=== PATIENT | female | born 1950 | race Caucasian/White ===

== ENCOUNTER → 2018-03-04 08:01 | Outpatient (CLI) | payer MEDICARE, OTHER, SELFPAY ==
--- NOTE | 2018-03-04 | DI.MG.S_ITS ---
BILATERAL DIGITAL SCREENING MAMMOGRAM 3D/2D WITH CAD: 03/04/2018 CLINICAL: Routine screening. Family history of breast cancer. Comparison is made to exams dated: 02/20/2016 mammogram, 02/15/2015 mammogram, and 09/21/2013 mammogram - [facility]. The tissue of both breasts is heterogeneously dense. This may lower the sensitivity of mammography. Current study was also evaluated with a Computer Aided Detection (CAD) system. No significant masses, calcifications, or other findings are seen in either breast. There has been no significant interval change. IMPRESSION: NEGATIVE There is no mammographic evidence of malignancy. A 1 year screening mammogram is recommended. This exam was interpreted at Station ID: [id number]. NOTE: For mammograms, a report in lay terms will be sent to the patient. Approximately 15% of breast malignancies will not be visualized mammographically. In the management of a palpable breast mass, a negative mammogram must not discourage biopsy of a clinically suspicious lesion. Electronically Signed By: Sj griffin/estefani:03/04/2018 13:51:28 letter sent: Normal Exam ACR BI-RADS Category 1: Negative 3341F
== END ==
PROVIDERS: PCP Nurse Practitioner Family; Visit Provider Nurse Practitioner Family
DX: Z12.31 Encounter for screening mammogram for malignant neoplasm of breast (principal); Z80.3 Family history of malignant neoplasm of breast
CPT/HCPCS: 77063; 77067

== ENCOUNTER → 2018-04-22 08:26 | Outpatient (CLI) | payer MEDICARE, OTHER, SELFPAY ==
--- NOTE | 2018-04-22 | DI.RAD.S_ITS ---
PROCEDURE: XR HAND LT MIN 3V INDICATIONS: BILATERAL HANDS, PAIN WORSENING W ACTIVITY, SUSPECT ARTHRITI TECHNIQUE: 3 views of the hand(s) acquired. COMPARISON: None. FINDINGS: Bones: No fractures or dislocations. Carpal bones are normally aligned. No suspicious bony lesions. Degenerative joint disease is evident in the first carpal metacarpal joint, IP joint of the thumb and DIP joints of the fingers, most marked in the index finger. Soft tissues: No suspicious soft tissue calcifications. IMPRESSION: Osteoarthritis left hand Dictated by: Taqueria Suarez M.D. on 04/22/2018 at 8:50 Approved by: Taqueria Suarez M.D. on 04/22/2018 at 8:52
--- NOTE | 2018-04-22 | DI.RAD.S_ITS ---
PROCEDURE: XR HAND RT MIN 3V INDICATIONS: BILATERAL HANDS, PAIN WORSENING W ACTIVITY, SUSPECT ARTHRITI TECHNIQUE: 3 views of the hand(s) acquired. COMPARISON: None. FINDINGS: Bones: No fractures or dislocations. Carpal bones are normally aligned. No suspicious bony lesions. Degenerative joint disease is present at the basilar joint of the thumb, IP joint of the thumb and DIP joints of the fingers, most marked in the fifth finger. Soft tissues: No suspicious soft tissue calcifications. IMPRESSION: Osteoarthritis right hand Dictated by: Taqueria Suarez M.D. on 04/22/2018 at 8:52 Approved by: Taqueria Suarez M.D. on 04/22/2018 at 8:53
== END ==
PROVIDERS: PCP Nurse Practitioner Family; Visit Provider Nurse Practitioner Family
DX: M19.042 Primary osteoarthritis, left hand (principal); M19.041 Primary osteoarthritis, right hand; M79.641 Pain in right hand; M79.642 Pain in left hand
CPT/HCPCS: 73130

== ENCOUNTER → 2019-02-22 08:57 | Outpatient (CLI) | payer MEDICARE, OTHER, SELFPAY ==
--- NOTE | 2019-02-22 | DI.RAD.S_ITS ---
PROCEDURE: XR KNEE LT 3V INDICATIONS: LT LEG PAIN TECHNIQUE: 3 views of the knee were acquired. COMPARISON: None. FINDINGS: Bones: No fractures or dislocations. No suspicious bony lesions. Soft tissues: There is a small joint effusion. No suspicious soft tissue calcifications. IMPRESSION: 1. Small joint effusion. 2. No fracture or dislocation. Dictated by: Jordi Sullivan M.D. on 02/22/2019 at 11:03 Approved by: Jordi Sullivan M.D. on 02/22/2019 at 11:08
--- NOTE | 2019-02-22 | DI.US.S_ITS ---
PROCEDURE: US PERIPH VENOUS LOW EXTREM LT INDICATIONS: LEFT LEG PAIN TECHNIQUE: Real-time imaging, as well as color and pulse Doppler interrogation, were performed of the lower extremity deep veins from the inguinal ligament to the popliteal fossa. COMPARISON: None. FINDINGS: The common femoral, femoral and popliteal veins are normally compressible, and free of intraluminal thrombus. Color and pulse Doppler demonstrate normal phasic intraluminal flow. There is normal augmentation response to distal compression maneuver. IMPRESSION: Negative for deep venous thrombosis. Dictated by: Landon Weinstein M.D. on 02/22/2019 at 9:15 Approved by: Landon Weinstein M.D. on 02/22/2019 at 9:16
== END ==
PROVIDERS: PCP Nurse Practitioner Family; Visit Provider Nurse Practitioner Family
DX: M79.605 Pain in left leg (principal); M25.462 Effusion, left knee
CPT/HCPCS: 73562; 93971

== ENCOUNTER → 2019-12-11 13:41 | Outpatient (CLI) | payer MEDICARE, OTHER, SELFPAY ==
[2019-12-11 19:16] LABS: Appearance Urine UA CLEAR; Bilirubin Urine UA NEGATIVE (NEGATIVE); Color Urine UA YELLOW; Glucose Urine UA NEGATIVE (Negative); Ketones Urine UA NEGATIVE (NEGATIVE); Leukocyte Esterase Urine UA TRACE (NEGATIVE); Nitrite Urine UA NEGATIVE (Negative); Occult Blood Urine UA TRACE-INTACT (Negative); Protein Urine UA NEGATIVE (Negative); Specific Gravity Urine UA <=1.005 (1.000-1.035); Urobilinogen Urine UA 0.2 E.U./dL (0.2)
[2019-12-11 19:37] LABS: Bacteria Urine Moderate (10-30); Culture Indicated Urine Specimen Cultured; RBC Urine 0-1/HPF (0-5/HPF); WBC Urine 10-30/HPF (0-5/HPF)
== END ==
PROVIDERS: PCP Family Medicine; Referring Provider Family Medicine; Visit Provider Family Medicine
DX: R30.0 Dysuria (principal)
CPT/HCPCS: 81001; 87077; 87086; 87186

== ENCOUNTER → 2019-12-21 09:32 | Outpatient (CLI) | payer MEDICARE, OTHER, SELFPAY ==
[2019-12-21 09:36] LABS: RBC Urine None Seen (0-5/HPF)
[2019-12-21 10:58] LABS: Appearance Urine UA CLEAR; Bilirubin Urine UA NEGATIVE (NEGATIVE); Color Urine UA YELLOW; Glucose Urine UA NEGATIVE (Negative); Ketones Urine UA NEGATIVE (NEGATIVE); Leukocyte Esterase Urine UA NEGATIVE (NEGATIVE); Nitrite Urine UA NEGATIVE (Negative); Occult Blood Urine UA NEGATIVE (Negative); Protein Urine UA NEGATIVE (Negative); Specific Gravity Urine UA <=1.005 (1.000-1.035); Urobilinogen Urine UA 0.2 E.U./dL (0.2)
[2019-12-21 11:16] LABS: Bacteria Urine Occasional (0-1); Culture Indicated Urine Cult Not Indicated; Squamous Epithelial Cell Urine 0-1 /HPF (0-5/HPF); WBC Urine 0-1/HPF (0-5/HPF); pH Urine UA 6.5 (4.5-8.0)
== END ==
PROVIDERS: PCP Family Medicine; Referring Provider Family Medicine; Visit Provider Family Medicine
DX: N39.0 Urinary tract infection, site not specified (principal)
CPT/HCPCS: 81001

== ENCOUNTER → 2020-04-18 08:35 | Outpatient (CLI) | payer MEDICARE, OTHER, SELFPAY ==
--- NOTE | 2020-04-18 08:37 | DI.MG.S_ITS ---
BILATERAL DIGITAL SCREENING MAMMOGRAM 3D/2D WITH CAD: 04/18/2020 CLINICAL: Routine screening. Family history of breast cancer. Comparison is made to exams dated: 03/04/2018 mammogram, 02/20/2016 mammogram, and 02/15/2015 mammogram - [facility]. The tissue of both breasts is heterogeneously dense. This may lower the sensitivity of mammography. Current study was also evaluated with a Computer Aided Detection (CAD) system. No significant masses, calcifications, or other findings are seen in either breast. There has been no significant interval change. IMPRESSION: NEGATIVE There is no mammographic evidence of malignancy. A 1 year screening mammogram is recommended. This exam was interpreted at Station ID: [id number]. NOTE: For mammograms, a report in lay terms will be sent to the patient. Approximately 15% of breast malignancies will not be visualized mammographically. In the management of a palpable breast mass, a negative mammogram must not discourage biopsy of a clinically suspicious lesion. Electronically Signed By: Luis brennan/estefani:04/18/2020 08:55:40 letter sent: Normal Exam ACR BI-RADS Category 1: Negative 3341F
== END ==
PROVIDERS: PCP Family Medicine; Referring Provider Family Medicine; Visit Provider Family Medicine
DX: Z12.31 Encounter for screening mammogram for malignant neoplasm of breast (principal); Z80.3 Family history of malignant neoplasm of breast
CPT/HCPCS: 77063; 77067

== ENCOUNTER → 2020-04-19 07:20 | Outpatient (CLI) | payer MEDICARE, OTHER, SELFPAY ==
[2020-04-19 08:42] LABS: Alanine Aminotransferase 23 IU/L (<35); Albumin 4.3 g/dL (3.5-5.0); Albumin Globulin Ratio 1.8 (1.0-2.8); Alkaline Phosphatase 38 U/L (38-126); Aspartate Aminotransferase 25 IU/L (14-36); BUN Creatinine Ratio 18.1 (6-22); Bilirubin Total 0.5 mg/dL (0.2-1.3); Blood Urea Nitrogen 13 mg/dL (7-17); Calcium 9.8 mg/dL (8.4-10.2); Carbon Dioxide 30 mmol/L (22-32); Chloride 104 mmol/L (98-107); Cholesterol 208 mg/dL (140-199); Estimated Glomerular Filt Rate > 60.0 mL/min (>60); Globulin 2.4 g/dL (1.7-4.1); Glucose 107 mg/dL (80-110); HDL Cholesterol 91 mg/dL (40-60); HEMOLYSIS < 15 (0-50); LDL Cholesterol Calculated 106 mg/dL (<100); Potassium 4.1 mmol/L (3.4-5.1); Sodium 138 mmol/L (137-145); Total Protein 6.7 g/dL (6.3-8.2); Triglycerides 53 mg/dL (35-150)
== END ==
PROVIDERS: PCP Family Medicine; Referring Provider Family Medicine; Visit Provider Family Medicine
DX: E78.5 Hyperlipidemia, unspecified (principal); Z13.1 Encounter for screening for diabetes mellitus
CPT/HCPCS: 36415; 80053; 80061

== ENCOUNTER → 2020-06-17 08:26 | Outpatient (CLI) | payer MEDICARE, OTHER, SELFPAY | PROVIDERS: PCP Family Medicine; Referring Provider Family Medicine; Visit Provider Family Medicine | DX: Z12.11 Encounter for screening for malignant neoplasm of colon (principal) | CPT/HCPCS: 82274 ==

== ENCOUNTER → 2020-07-11 10:02 | Outpatient (CLI) | payer MEDICARE, OTHER, SELFPAY | PROVIDERS: PCP Family Medicine; Referring Provider Family Medicine; Visit Provider Family Medicine | DX: M85.852 Other specified disorders of bone density and structure, left thigh (principal); Z78.0 Asymptomatic menopausal state | CPT/HCPCS: 77080 ==

== ENCOUNTER → 2021-03-07 14:40 | Outpatient (CLI) | payer MEDICARE, OTHER, SELFPAY ==
[2021-03-07 14:51] LABS: RBC Urine None Seen (0-5/HPF)
[2021-03-07 15:30] LABS: Appearance Urine UA CLEAR; Bilirubin Urine UA NEGATIVE (NEGATIVE); Color Urine UA YELLOW; Glucose Urine UA NEGATIVE (Negative); Ketones Urine UA NEGATIVE (NEGATIVE); Leukocyte Esterase Urine UA 2+ (NEGATIVE); Nitrite Urine UA NEGATIVE (Negative); Occult Blood Urine UA 2+ (Negative); Protein Urine UA NEGATIVE (Negative); Specific Gravity Urine UA <=1.005 (1.000-1.035); Urobilinogen Urine UA 0.2 E.U./dL (0.2)
[2021-03-07 15:47] LABS: pH Urine UA 5.5 (4.5-8.0)
[2021-03-07 15:48] LABS: WBC Urine 5-10/HPF (0-5/HPF)
[2021-03-07 15:49] LABS: Bacteria Urine Few (2-10); Culture Indicated Urine Specimen Cultured; Mucus Urine 2+ (Negative); Squamous Epithelial Cell Urine 1-5 /HPF (0-5/HPF); Transitional Epi Cells Urine 1-5/HPF (0-5/HPF)
== END ==
PROVIDERS: PCP Family Medicine; Referring Provider Family Medicine; Visit Provider Family Medicine
DX: R30.0 Dysuria (principal); R35.0 Frequency of micturition; R39.15 Urgency of urination
CPT/HCPCS: 81001; 87077; 87086; 87186

== ENCOUNTER 2021-06-02 13:30 | Outpatient (RCR) | payer MEDICARE, OTHER, SELFPAY ==
--- NOTE | 2021-03-24 17:02 | PT.OIE ---
Current Diagnoses Stiffness of left shoulder, not elsewhere classified (03/24/21) Muscle weakness (generalized) (03/24/21) Strain of unspecified muscle, fascia and tendon at shoulder and upper arm level, left arm, initial encounter (03/24/21) Past Medical History (Last Updated 01/08/21 @ 10:11 by Ritu Little PA-C) Adult acne Chronic cough Hyperlipidemia Left shoulder strain Past Surgical History (Last Reviewed 03/26/20 @ 17:05 by Florence Wolf DO) No history of previous surgery Visit Care Team Role Provider Type Florence Wolf DO Attending Provider Physician Primary Care Provider Referring Provider Specialty: [facility] Address: [address] [place] [address], [place], [place], [facility] Email: [email or web address] Physical Therapy Initial Evaluation PT-OP-A Visit Information Start: 03/21/21 17:53 Freq: Status: Active Protocol: Document 03/24/21 13:33 LRN (Rec: 03/24/21 14:29 LRN [id number]) Out-Patient Physical Therapy Visit Information Visit Information Visit Type Initial Evaluation Visit Start Time 13:33 Visit Stop Time 14:26 Total Visit Minutes 53 Visit Number 1 Evaluation Information Evaluation Date 03/24/21 Precautions Precautions Controlled high cholesteral with Statin medication, 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 PT-OP-B Current Condition Start: 03/21/21 17:53 Freq: Status: Active Protocol: Document 03/24/21 13:33 LRN (Rec: 03/24/21 14:29 LRN [id number]) Current Condition History of Current Condition Onset Date 4 months ago Current Complaints Sore L lateral brachium and shoulder. Can't reach behind/ lift History of Current Condition L shoulder started to hurt after receiving COVID injection. Pain is anterior L shoulder and lateral upper arm (deltoid region). Prior to injection she was just starting to get soreness at top of the shoulder minor ache when doing exercises. Used 8# hand weights 5 days a week while in bed. She is having difficulty sleeping and trouble dressing (putting bra on). She is taking IBP & using deep blue cream to help get to sleep. In recliner supports shoulder from behind with a pillow for comfort. She has had prednisone for a few days that helped her sleep to be more regular (waking only to use bathroom and clear nose). Sometimes when lying at night her pain radiates from shoulder to the neck. Prior Treatments and Tests None Future Testing and Treatments Planned None Developmental History Developmental History Pt is R handed. Treatment Goals Patient/Caregiver Goals Pt goal is to be able to put bra on, sleep at night, and to lie down without shoulder aching. Prior Functional Status Baseline Function- ADL's Independent Baseline Function- Mobility Independent Baseline Function- Other Wakes a couple times a night to use bathroom or blow nose. Able to lie in bed without aching pain. No pain with dressing (putting bra on). Current Functional Impairments (Reported) Functional Limitations- ADL's Sleeps hourly due to needing bathroom visits, coughing, runny nose, and lately L shoulder pain. Notices more lately creaking in neck when moves head (was evident prior to worsening of L shoulder pain. Functional Limitations- Mobility/Gait No pain with gait. Functional Limitations- Recreation/ Gardens, sometimes hurts, then Hobbies has to adjust what she is doing. Functional Limitations- Other Not able to lie down due to ache pain. Difficulty putting bra on, pulling up pants. Personal Factors Other Personal Factors That May Effect None Therapy/Recovery PT-OP-C Subjective Start: 03/21/21 17:53 Freq: Status: Active Protocol: Document 03/24/21 13:33 LRN (Rec: 03/24/21 14:29 LRN [id number]) Patient Questionnaires Quick Dash- Upper Extremity Quick Dash UE Score 50 Quick Dash UE Impairment 40 to 59% Impaired (Score 40- 59) OP-PT Pain Assessment Pain Assessment Grid Paper Pain Assessment Grid Completed Yes Location L shoulder Pain Location Details Anterior and lateral L shoulder Intensity 7 Scale Used Numeric (0 - 10) Description Aching,Throbbing Description- Other Worse at night Pain Aggravating Factors Position Other Pain Aggravating Factors Lying supine and sleeping Pain Alleviating Factors Cold,Heat,Medication Other Pain Alleviating Factors Prednisone, Deep Blue Cream, IBP PT-OP-E Functional Tests Start: 03/21/21 17:53 Freq: Status: Active Protocol: Document 03/24/21 13:33 LRN (Rec: 03/24/21 14:29 LRN [id number]) Functional Tests Apley's Scratch Test Action 1- Left Top of UT Action 1- Right Supraspinatus, almost to spine Action 2- Left C7 Action 2- Right T1 Action 3- Left Posterior Buttock Action 3- Right T7 PT-OP-H Neuro Start: 03/21/21 17:53 Freq: Status: Active Protocol: Document 03/24/21 13:33 LRN (Rec: 03/24/21 14:29 LRN [id number]) Sensation Evaluation Gross Sensation Gross Sensation WNL PT-OP-J Posture/Palpation/Skin Start: 03/21/21 17:53 Freq: Status: Active Protocol: Document 03/24/21 13:33 LRN (Rec: 03/24/21 14:29 LRN [id number]) Posture Evaluation Position Standing Head/C-Spine Posture Forward Head T-Spine Posture Increased Kyphosis Shoulder Posture (L) Rounded,(R) Rounded Scapula Posture (L) Elevated Palpation Assessment Location L neck Palpation Location UT Palpation Findings Muscle Guarding,Tenderness L shoulder Palpation Location Pec Minor, anterior & middle deltoid Palpation Findings Soft Tissue Tightness, Tenderness Palpation Details No pain subacromial region or Rotator Cuff attachments at humeral head. PT-OP-K Range of Motion Start: 03/21/21 17:53 Freq: Status: Active Protocol: Document 03/24/21 13:33 LRN (Rec: 03/24/21 14:29 LRN [id number]) Cervical Spine Range of Motion Cervical Spine Active Percentage Testing Position Sitting Flexion 100 Extension 90 Rotation Left 45 Rotation Right 45 Lateral Flexion Left 20 Lateral Flexion Right 20 Shoulder Goniometric Range of Motion Shoulder Right Passive Shoulder ROM WFL Yes Testing Position Supine Flexion 173 Abduction 180 External Rotation at 90 degrees 68 Abduction Internal Rotation 76 Left Passive Shoulder ROM WFL No Testing Position Supine Flexion 137 Abduction 80 Internal Rotation 18 Comments ER 10 deg's at 80 deg's AB. Right Active Testing Position Sitting Flexion 180 Extension 70 Abduction 180 Internal Rotation Behind Back (text) T7 Left Active Shoulder ROM WFL No Testing Position Sitting Flexion 130 Extension 36 Abduction 65 Internal Rotation Behind Back (text) Buttock PT-OP-L Special Tests Start: 03/21/21 17:53 Freq: Status: Active Protocol: Document 03/24/21 13:33 LRN (Rec: 03/24/21 16:13 LRN [id number]) Special Tests Shoulder Special Tests Overton Gualberto Impingement Test Results Positive L shoulder Elevation Impingement Test Results Positive L shoulder Anterior Draw Test Results Negative L shoulder PT-OP-M Strength Start: 03/21/21 17:53 Freq: Status: Active Protocol: Document 03/24/21 13:33 LRN (Rec: 03/24/21 14:29 LRN [id number]) Cervical Spine Strength Cervical Spine Manual Muscle Testing Comments Generally 5/5 Shoulder Strength Shoulder Manual Muscle Testing Right Abduction (C5) 4 Good Comments Strength is 5/5 except as indicated above. Left Extension 4 Good Adduction 5 Normal External Rotation 3 Fair Horizontal Adduction 4 Good Comments Strength is 5/5 with break testing except as indicated above. Pain limited strength in areas less than 5/5 Elbow/Forearm Strength Elbow and Forearm Manual Muscle Testing Right Flexion (C6) 5 Normal Extension (C7) 5 Normal Left Flexion (C6) 5 Normal Extension (C7) 5 Normal PT-OP-Q Treatments Start: 03/21/21 17:53 Freq: Status: Active Protocol: Document 03/24/21 13:33 LRN (Rec: 03/24/21 14:29 LRN [id number]) Self-Care/Home Management Treatment Education Other Education Discussed results of evaluation, goals, and plan of care. Pt agreeable. Educated pt in pain management with use of cryotherapy. Activities Self-Care/Home Management Activities I/S in active windshield wipe in sitting and passive L shoulder ER passive stretching in sitting (arm on table and leaning forward). PT-OP-T Assessment and Plan Start: 03/21/21 17:53 Freq: Status: Active Protocol: Document 03/24/21 13:33 LRN (Rec: 03/24/21 14:29 LRN [id number]) Physical Therapy Assessment Rehab Potential Rehabilitation Potential Good Evaluation Complexity Number of Personal Factors/Comorbidities 0 Number of Body Systems Impaired 4 or More Clinical Presentation at Evaluation Stable Impairments Impairments Pain,Posture,ROM,Soft Tissue Mobility,Strength Goals Three Impairment Decr'd L shldr ROM (deg's in sit: flex 130, AB 65, Ext 36) Short Term Goal (STG) Initial eval: L shldr AROM ( deg's in sit: flex 130, AB 65, Ext 36, IR hand to buttock) Pt will improve L shoulder AROM with pt able to put bra on with stiffness at shoulder and pain no greater than 2/10. STG Duration 05/05/21 Longterm Goal (LTG) Initial eval: L shldr PROM ( deg's in sup: flex 137, AB 80, ER 10, IR 18) Pt will improve L shoulder PROM, with pt able to lie down without L shoulder aching pain. LTG Duration 06/22/21 Two Impairment Decreased L shoulder strength due to pain. Short Term Goal (STG) Increase L shoulder strength 1 /2 grade (Initial: Ext 4/5, ER 3/5 horiz AD 4/5) to improve pt's ability to lie down with less shoulder pain. STG Duration 05/05/21 Sales Account Leader Goal (LTG) Increase L shoulder strength to no less than 4+/5, with pt able to sleep at night at her prior level of disruption ( waking a couple times a night) but not due to L shoulder pain. LTG Duration 06/22/21 One Impairment Lacks appropriate self care HEP Short Term Goal (STG) Pt will be educated in sleeping positions to minimize pain at night. Sales Account Leader Goal (LTG) Pt will be independent in a self care HEP of L neck and shoulder exercises. LTG Duration 06/22/21 Assessment Summary Assessment Pt is a 70 yo female who presents with a mobility pattern of frozen shoulder syndrome. Additionally she shows signs of impingement syndrome, indicating possible rotator cuff dysfunction. The pt will benefit from skilled physical therapy to achieve the above stated goals. Physical Therapy Plan Frequency and Duration Frequency of Treatment 2x/Week Plan of Care Start Date 03/24/21 Plan of Care End Date 06/22/21 Therapeutic Interventions Therapeutic Interventions Home Exercise Program,Joint Mobilizations,Manual Therapy, Neuromuscular Re-education, Patient/Caregiver Education, Self-Care/Home Management,Soft Tissue Mobilization,Taping, Therapeutic Activities, Therapeutic Exercises Next Visit Focus/Plan Next Note Type Treatment Note Next Visit Plan Review instructed HEP and issue handouts (windshield wipe and L shoulder ER stretch with arm on table). Assess response to pt's instructions to increase use of cryotherapy for pain management. Start AROM (codmans & RC active ROM ex's), and modalities or ex to start to increase tissue flexibility prior to JMT and stretching of GHJ. Rehab for L frozen shoulder/impingement.
--- NOTE | 2021-03-24 17:02 | PT.OPPOC ---
Physical, Occupational & Speech Therapy At [facility] Current Diagnoses Stiffness of left shoulder, not elsewhere classified (03/24/21) Muscle weakness (generalized) (03/24/21) Strain of unspecified muscle, fascia and tendon at shoulder and upper arm level, left arm, initial encounter (03/24/21) Visit Care Team Role Provider Type Florence Wolf DO Attending Provider Physician Primary Care Provider Referring Provider Specialty: Family Practice Address: [address] [place] [address], [facility] [place], [address] Email: [email or web address] Plan Of Care PT-OP-T Assessment and Plan Start: 03/21/21 17:53 Freq: Status: Active Protocol: Document 03/24/21 13:33 LRN (Rec: 03/24/21 14:29 LRN [id number]) Physical Therapy Assessment Rehab Potential Rehabilitation Potential Good Evaluation Complexity Number of Personal Factors/Comorbidities 0 Number of Body Systems Impaired 4 or More Clinical Presentation at Evaluation Stable Impairments Impairments Pain,Posture,ROM,Soft Tissue Mobility,Strength Goals Three Impairment Decr'd L shldr ROM (deg's in sit: flex 130, AB 65, Ext 36) Short Term Goal (STG) Initial eval: L shldr AROM ( deg's in sit: flex 130, AB 65, Ext 36, IR hand to buttock) Pt will improve L shoulder AROM with pt able to put bra on with stiffness at shoulder and pain no greater than 2/10. STG Duration 05/05/21 Alf Goal (LTG) Initial eval: L shldr PROM ( deg's in sup: flex 137, AB 80, ER 10, IR 18) Pt will improve L shoulder PROM, with pt able to lie down without L shoulder aching pain. LTG Duration 06/22/21 Two Impairment Decreased L shoulder strength due to pain. Short Term Goal (STG) Increase L shoulder strength 1 /2 grade (Initial: Ext 4/5, ER 3/5 horiz AD 4/5) to improve pt's ability to lie down with less shoulder pain. STG Duration 05/05/21 Alf Goal (LTG) Increase L shoulder strength to no less than 4+/5, with pt able to sleep at night at her prior level of disruption ( waking a couple times a night) but not due to L shoulder pain. LTG Duration 06/22/21 One Impairment Lacks appropriate self care HEP Short Term Goal (STG) Pt will be educated in sleeping positions to minimize pain at night. Alf Goal (LTG) Pt will be independent in a self care HEP of L neck and shoulder exercises. LTG Duration 06/22/21 Assessment Summary Assessment Pt is a 70 yo female who presents with a mobility pattern of frozen shoulder syndrome. Additionally she shows signs of impingement syndrome, indicating possible rotator cuff dysfunction. The pt will benefit from skilled physical therapy to achieve the above stated goals. Physical Therapy Plan Frequency and Duration Frequency of Treatment 2x/Week Plan of Care Start Date 03/24/21 Plan of Care End Date 06/22/21 Therapeutic Interventions Therapeutic Interventions Home Exercise Program,Joint Mobilizations,Manual Therapy, Neuromuscular Re-education, Patient/Caregiver Education, Self-Care/Home Management,Soft Tissue Mobilization,Taping, Therapeutic Activities, Therapeutic Exercises Next Visit Focus/Plan Next Note Type Treatment Note Next Visit Plan Review instructed HEP and issue handouts (windshield wipe and L shoulder ER stretch with arm on table). Assess response to pt's instructions to increase use of cryotherapy for pain management. Start AROM (codmans & RC active ROM ex's), and modalities or ex to start to increase tissue flexibility prior to JMT and stretching of GHJ. Rehab for L frozen shoulder/impingement. Plan of Care Dates Plan of Care Start Date 03/24/21 Plan of Care End Date 06/22/21 Electronically Signed by: Tawana Vazquez, PT 03/24/21 [id number] Please Sign and Return: I have reviewed this Plan of Care and certify that the skilled therapy services above are required to meet the patient?s needs. Physician Signature Date Printed Name and Credentials Clinical Instructor Signature Printed Name and Credentials
--- NOTE | 2021-03-26 17:04 | PT.OTN ---
Current Diagnoses Stiffness of left shoulder, not elsewhere classified (03/26/21) Muscle weakness (generalized) (03/26/21) Strain of unspecified muscle, fascia and tendon at shoulder and upper arm level, left arm, initial encounter (03/26/21) Physical Therapy Treatment Note PT-OP-A Visit Information Start: 03/21/21 17:53 Freq: Status: Active Protocol: Document 03/26/21 14:35 MA (Rec: 03/26/21 15:17 MA [id number]) Out-Patient Physical Therapy Visit Information Visit Information Visit Type Treatment Note Visit Start Time 14:30 Visit Stop Time 15:20 Total Visit Minutes 50 Visit Number 2 Number of STATIONARY ENGINEER REFRIGERATION Visits 1 Precautions Precautions Controlled high cholesteral with Statin medication, 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 PT-OP-B Current Condition Start: 03/21/21 17:53 Freq: Status: Active Protocol: Document 03/24/21 13:33 LRN (Rec: 03/24/21 14:29 LRN [id number]) Current Condition History of Current Condition Onset Date 4 months ago Current Complaints Sore L lateral brachium and shoulder. Can't reach behind/ lift History of Current Condition L shoulder started to hurt after receiving COVID injection. Pain is anterior L shoulder and lateral upper arm (deltoid region). Prior to injection she was just starting to get soreness at top of the shoulder minor ache when doing exercises. Used 8# hand weights 5 days a week while in bed. She is having difficulty sleeping and trouble dressing (putting bra on). She is taking IBP & using deep blue cream to help get to sleep. In recliner supports shoulder from behind with a pillow for comfort. She has had prednisone for a few days that helped her sleep to be more regular (waking only to use bathroom and clear nose). Sometimes when lying at night her pain radiates from shoulder to the neck. Prior Treatments and Tests None Future Testing and Treatments Planned None Developmental History Developmental History Pt is R handed. Treatment Goals Patient/Caregiver Goals Pt goal is to be able to put bra on, sleep at night, and to lie down without shoulder aching. Prior Functional Status Baseline Function- ADL's Independent Baseline Function- Mobility Independent Baseline Function- Other Wakes a couple times a night to use bathroom or blow nose. Able to lie in bed without aching pain. No pain with dressing (putting bra on). Current Functional Impairments (Reported) Functional Limitations- ADL's Sleeps hourly due to needing bathroom visits, coughing, runny nose, and lately L shoulder pain. Notices more lately creaking in neck when moves head (was evident prior to worsening of L shoulder pain. Functional Limitations- Mobility/Gait No pain with gait. Functional Limitations- Recreation/ Gardens, sometimes hurts, then Hobbies has to adjust what she is doing. Functional Limitations- Other Not able to lie down due to ache pain. Difficulty putting bra on, pulling up pants. Personal Factors Other Personal Factors That May Effect None Therapy/Recovery PT-OP-C Subjective Start: 03/21/21 17:53 Freq: Status: Active Protocol: Document 03/26/21 14:35 MA (Rec: 03/26/21 15:17 MA [id number]) OP-PT Subjective Patient Comments Patient Comments Pt has done her HEP at home. PT-OP-E Functional Tests Start: 03/21/21 17:53 Freq: Status: Active Protocol: Document 03/24/21 13:33 LRN (Rec: 03/24/21 14:29 LRN [id number]) Functional Tests Apley's Scratch Test Action 1- Left Top of UT Action 1- Right Supraspinatus, almost to spine Action 2- Left C7 Action 2- Right T1 Action 3- Left Posterior Buttock Action 3- Right T7 PT-OP-H Neuro Start: 03/21/21 17:53 Freq: Status: Active Protocol: Document 03/24/21 13:33 LRN (Rec: 03/24/21 14:29 LRN [id number]) Sensation Evaluation Gross Sensation Gross Sensation WNL PT-OP-J Posture/Palpation/Skin Start: 03/21/21 17:53 Freq: Status: Active Protocol: Document 03/24/21 13:33 LRN (Rec: 03/24/21 14:29 LRN [id number]) Posture Evaluation Position Standing Head/C-Spine Posture Forward Head T-Spine Posture Increased Kyphosis Shoulder Posture (L) Rounded,(R) Rounded Scapula Posture (L) Elevated Palpation Assessment Location L neck Palpation Location UT Palpation Findings Muscle Guarding,Tenderness L shoulder Palpation Location Pec Minor, anterior & middle deltoid Palpation Findings Soft Tissue Tightness, Tenderness Palpation Details No pain subacromial region or Rotator Cuff attachments at humeral head. PT-OP-K Range of Motion Start: 03/21/21 17:53 Freq: Status: Active Protocol: Document 03/24/21 13:33 LRN (Rec: 03/24/21 14:29 LRN [id number]) Cervical Spine Range of Motion Cervical Spine Active Percentage Testing Position Sitting Flexion 100 Extension 90 Rotation Left 45 Rotation Right 45 Lateral Flexion Left 20 Lateral Flexion Right 20 Shoulder Goniometric Range of Motion Shoulder Right Passive Shoulder ROM WFL Yes Testing Position Supine Flexion 173 Abduction 180 External Rotation at 90 degrees 68 Abduction Internal Rotation 76 Left Passive Shoulder ROM WFL No Testing Position Supine Flexion 137 Abduction 80 Internal Rotation 18 Comments ER 10 deg's at 80 deg's AB. Right Active Testing Position Sitting Flexion 180 Extension 70 Abduction 180 Internal Rotation Behind Back (text) T7 Left Active Shoulder ROM WFL No Testing Position Sitting Flexion 130 Extension 36 Abduction 65 Internal Rotation Behind Back (text) Buttock PT-OP-L Special Tests Start: 03/21/21 17:53 Freq: Status: Active Protocol: Document 03/24/21 13:33 LRN (Rec: 03/24/21 16:13 LRN [id number]) Special Tests Shoulder Special Tests Overton Gualberto Impingement Test Results Positive L shoulder Elevation Impingement Test Results Positive L shoulder Anterior Draw Test Results Negative L shoulder PT-OP-M Strength Start: 03/21/21 17:53 Freq: Status: Active Protocol: Document 03/24/21 13:33 LRN (Rec: 03/24/21 14:29 LRN [id number]) Cervical Spine Strength Cervical Spine Manual Muscle Testing Comments Generally 5/5 Shoulder Strength Shoulder Manual Muscle Testing Right Abduction (C5) 4 Good Comments Strength is 5/5 except as indicated above. Left Extension 4 Good Adduction 5 Normal External Rotation 3 Fair Horizontal Adduction 4 Good Comments Strength is 5/5 with break testing except as indicated above. Pain limited strength in areas less than 5/5 Elbow/Forearm Strength Elbow and Forearm Manual Muscle Testing Right Flexion (C6) 5 Normal Extension (C7) 5 Normal Left Flexion (C6) 5 Normal Extension (C7) 5 Normal PT-OP-Q Treatments Start: 03/21/21 17:53 Freq: Status: Active Protocol: Document 03/26/21 14:35 MA (Rec: 03/26/21 15:17 MA [id number]) Therapeutic Exercises Supine Exercises Horizontal ABD Side bilateral Reps/Minutes x10 Flexion Supine Exercise Name Shoulder flexion to 90 Side bilateral Reps/Minutes x10 ER Supine Exercise Name rosioshield wiper Side bilateral Reps/Minutes 60 sec Sidelying Exercises Stretch Sidelying Exercise Name Sleeper Stretch, IR Side left Reps/Minutes 60 sec Sitting Exercises Fwd Flexion Sitting Exercise Name arms on table, leaning fwd to tolerance Side bilateral Reps/Minutes x10 Standing Exercises Pendulum Standing Exercise Name CW, CCW Side left Reps/Minutes 2x30 sec Comments added to HEP Manual Therapy Treatment Soft Tissue Mobilization Bicep Body Location L Mobilization Type Rolling,Sustained Pressure Intensity/Depth Superficial Body Position Supine Comments superficial to moderate pressure RTC Body Location L Mobilization Type Myofascial Release Intensity/Depth Moderate Body Position Supine PT-OP-R Modalities Start: 03/21/21 17:53 Freq: Status: Active Protocol: Document 03/26/21 14:35 MA (Rec: 03/26/21 15:17 MA [id number]) Hot Pack/Cold Pack Treatment Ice Pack Location L bicep Patient Position Supine Treatment Duration (minutes) 10 Patient Tolerance Good PT-OP-T Assessment and Plan Start: 03/21/21 17:53 Freq: Status: Active Protocol: Document 03/26/21 14:35 MA (Rec: 03/26/21 15:17 MA [id number]) Physical Therapy Assessment Goals Three Impairment Decr'd L shldr ROM (deg's in sit: flex 130, AB 65, Ext 36) Short Term Goal (STG) Initial eval: L shldr AROM ( deg's in sit: flex 130, AB 65, Ext 36, IR hand to buttock) Pt will improve L shoulder AROM with pt able to put bra on with stiffness at shoulder and pain no greater than 2/10. STG Duration 05/05/21 Statement Request Clerk Goal (LTG) Initial eval: L shldr PROM ( deg's in sup: flex 137, AB 80, ER 10, IR 18) Pt will improve L shoulder PROM, with pt able to lie down without L shoulder aching pain. LTG Duration 06/22/21 Two Impairment Decreased L shoulder strength due to pain. Short Term Goal (STG) Increase L shoulder strength 1 /2 grade (Initial: Ext 4/5, ER 3/5 horiz AD 4/5) to improve pt's ability to lie down with less shoulder pain. STG Duration 05/05/21 Senior Care Goal (LTG) Increase L shoulder strength to no less than 4+/5, with pt able to sleep at night at her prior level of disruption ( waking a couple times a night) but not due to L shoulder pain. LTG Duration 06/22/21 One Impairment Lacks appropriate self care HEP Short Term Goal (STG) Pt will be educated in sleeping positions to minimize pain at night. Statement Request Clerk Goal (LTG) Pt will be independent in a self care HEP of L neck and shoulder exercises. LTG Duration 06/22/21 Assessment Summary Assessment Pt has pain on bicep mm belly along anterior humerus. She has noticable increase in tissue at site of pain. Perfomed light STM to biceps and ended with ice to reduce swelling. Added codmans pendulum swings and sleeper stretch for increasing IR to HEP. Pt is able to perform previous HEP exercises without increased pain today. She would benefit from continued therapy to increase shd ROM and decrease pain. Physical Therapy Plan Frequency and Duration Frequency of Treatment 2x/Week Plan of Care Start Date 03/24/21 Plan of Care End Date 06/22/21 Therapeutic Interventions Therapeutic Interventions Home Exercise Program,Joint Mobilizations,Manual Therapy, Neuromuscular Re-education, Patient/Caregiver Education, Self-Care/Home Management,Soft Tissue Mobilization,Taping, Therapeutic Activities, Therapeutic Exercises Next Visit Focus/Plan Next Note Type Treatment Note Next Visit Plan Review instructed HEP and issue handouts (windshield wipe and L shoulder ER stretch with arm on table). Assess response to pt's instructions to increase use of cryotherapy for pain management. Start AROM (codmans & RC active ROM ex's), and modalities or ex to start to increase tissue flexibility prior to JMT and stretching of GHJ. Rehab for L frozen shoulder/impingement.
--- NOTE | 2021-03-31 15:18 | PT.OTN ---
Current Diagnoses Stiffness of left shoulder, not elsewhere classified (03/31/21) Muscle weakness (generalized) (03/31/21) Strain of unspecified muscle, fascia and tendon at shoulder and upper arm level, left arm, initial encounter (03/31/21) Physical Therapy Treatment Note PT-OP-A Visit Information Start: 03/21/21 17:53 Freq: Status: Active Protocol: Document 03/31/21 14:36 MA (Rec: 03/31/21 15:18 MA [id number]) Out-Patient Physical Therapy Visit Information Visit Information Visit Type Treatment Note Visit Start Time 14:30 Visit Stop Time 15:20 Total Visit Minutes 50 Visit Number 3 Number of MANAGER PRODUCT MANAGEMENT Visits 2 Precautions Precautions Controlled high cholesteral with Statin medication, 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 PT-OP-B Current Condition Start: 03/21/21 17:53 Freq: Status: Active Protocol: Document 03/24/21 13:33 LRN (Rec: 03/24/21 14:29 LRN [id number]) Current Condition History of Current Condition Onset Date 4 months ago Current Complaints Sore L lateral brachium and shoulder. Can't reach behind/ lift History of Current Condition L shoulder started to hurt after receiving COVID injection. Pain is anterior L shoulder and lateral upper arm (deltoid region). Prior to injection she was just starting to get soreness at top of the shoulder minor ache when doing exercises. Used 8# hand weights 5 days a week while in bed. She is having difficulty sleeping and trouble dressing (putting bra on). She is taking IBP & using deep blue cream to help get to sleep. In recliner supports shoulder from behind with a pillow for comfort. She has had prednisone for a few days that helped her sleep to be more regular (waking only to use bathroom and clear nose). Sometimes when lying at night her pain radiates from shoulder to the neck. Prior Treatments and Tests None Future Testing and Treatments Planned None Developmental History Developmental History Pt is R handed. Treatment Goals Patient/Caregiver Goals Pt goal is to be able to put bra on, sleep at night, and to lie down without shoulder aching. Prior Functional Status Baseline Function- ADL's Independent Baseline Function- Mobility Independent Baseline Function- Other Wakes a couple times a night to use bathroom or blow nose. Able to lie in bed without aching pain. No pain with dressing (putting bra on). Current Functional Impairments (Reported) Functional Limitations- ADL's Sleeps hourly due to needing bathroom visits, coughing, runny nose, and lately L shoulder pain. Notices more lately creaking in neck when moves head (was evident prior to worsening of L shoulder pain. Functional Limitations- Mobility/Gait No pain with gait. Functional Limitations- Recreation/ Gardens, sometimes hurts, then Hobbies has to adjust what she is doing. Functional Limitations- Other Not able to lie down due to ache pain. Difficulty putting bra on, pulling up pants. Personal Factors Other Personal Factors That May Effect None Therapy/Recovery PT-OP-C Subjective Start: 03/21/21 17:53 Freq: Status: Active Protocol: Document 03/31/21 14:36 MA (Rec: 03/31/21 15:18 MA [id number]) OP-PT Subjective Patient Comments Patient Comments Pt feels the STM last session helped a lot. She has not used ice or heat at home. PT-OP-E Functional Tests Start: 03/21/21 17:53 Freq: Status: Active Protocol: Document 03/24/21 13:33 LRN (Rec: 03/24/21 14:29 LRN [id number]) Functional Tests Apley's Scratch Test Action 1- Left Top of UT Action 1- Right Supraspinatus, almost to spine Action 2- Left C7 Action 2- Right T1 Action 3- Left Posterior Buttock Action 3- Right T7 PT-OP-H Neuro Start: 03/21/21 17:53 Freq: Status: Active Protocol: Document 03/24/21 13:33 LRN (Rec: 03/24/21 14:29 LRN [id number]) Sensation Evaluation Gross Sensation Gross Sensation WNL PT-OP-J Posture/Palpation/Skin Start: 03/21/21 17:53 Freq: Status: Active Protocol: Document 03/24/21 13:33 LRN (Rec: 03/24/21 14:29 LRN [id number]) Posture Evaluation Position Standing Head/C-Spine Posture Forward Head T-Spine Posture Increased Kyphosis Shoulder Posture (L) Rounded,(R) Rounded Scapula Posture (L) Elevated Palpation Assessment Location L neck Palpation Location [place] Palpation Findings Muscle Guarding,Tenderness L shoulder Palpation Location Pec Minor, anterior & middle deltoid Palpation Findings Soft Tissue Tightness, Tenderness Palpation Details No pain subacromial region or Rotator Cuff attachments at humeral head. PT-OP-K Range of Motion Start: 03/21/21 17:53 Freq: Status: Active Protocol: Document 03/24/21 13:33 LRN (Rec: 03/24/21 14:29 LRN [id number]) Cervical Spine Range of Motion Cervical Spine Active Percentage Testing Position Sitting Flexion 100 Extension 90 Rotation Left 45 Rotation Right 45 Lateral Flexion Left 20 Lateral Flexion Right 20 Shoulder Goniometric Range of Motion Shoulder Right Passive Shoulder ROM WFL Yes Testing Position Supine Flexion 173 Abduction 180 External Rotation at 90 degrees 68 Abduction Internal Rotation 76 Left Passive Shoulder ROM WFL No Testing Position Supine Flexion 137 Abduction 80 Internal Rotation 18 Comments ER 10 deg's at 80 deg's AB. Right Active Testing Position Sitting Flexion 180 Extension 70 Abduction 180 Internal Rotation Behind Back (text) T7 Left Active Shoulder ROM WFL No Testing Position Sitting Flexion 130 Extension 36 Abduction 65 Internal Rotation Behind Back (text) Buttock PT-OP-L Special Tests Start: 03/21/21 17:53 Freq: Status: Active Protocol: Document 03/24/21 13:33 LRN (Rec: 03/24/21 16:13 LRN [id number]) Special Tests Shoulder Special Tests Overton Gualberto Impingement Test Results Positive L shoulder Elevation Impingement Test Results Positive L shoulder Anterior Draw Test Results Negative L shoulder PT-OP-M Strength Start: 03/21/21 17:53 Freq: Status: Active Protocol: Document 03/24/21 13:33 LRN (Rec: 03/24/21 14:29 LRN [id number]) Cervical Spine Strength Cervical Spine Manual Muscle Testing Comments Generally 5/5 Shoulder Strength Shoulder Manual Muscle Testing Right Abduction (C5) 4 Good Comments Strength is 5/5 except as indicated above. Left Extension 4 Good Adduction 5 Normal External Rotation 3 Fair Horizontal Adduction 4 Good Comments Strength is 5/5 with break testing except as indicated above. Pain limited strength in areas less than 5/5 Elbow/Forearm Strength Elbow and Forearm Manual Muscle Testing Right Flexion (C6) 5 Normal Extension (C7) 5 Normal Left Flexion (C6) 5 Normal Extension (C7) 5 Normal PT-OP-Q Treatments Start: 03/21/21 17:53 Freq: Status: Active Protocol: Document 03/31/21 14:36 MA (Rec: 03/31/21 15:18 MA [id number]) Therapeutic Exercises Supine Exercises Horizontal ABD Side bilateral Reps/Minutes x10 Flexion Supine Exercise Name Shoulder flexion to 90 Side bilateral Reps/Minutes x10 ER Supine Exercise Name luis fernandoield wiper Side bilateral Reps/Minutes 60 sec Comments 1# weight Sidelying Exercises Stretch Sidelying Exercise Name Sleeper Stretch, IR Side left Reps/Minutes 60 sec Comments holding 1# weight Sitting Exercises Fwd Flexion Sitting Exercise Name arms on table, leaning fwd to tolerance Side bilateral Reps/Minutes x10 Standing Exercises Pendulum Standing Exercise Name CW, CCW Side left Reps/Minutes 2x30 sec Comments cues to move body vs actively moving arm Manual Therapy Treatment Soft Tissue Mobilization Bicep Body Location L Mobilization Type Rolling,Sustained Pressure Intensity/Depth Moderate Body Position Supine Comments superficial to moderate pressure PT-OP-R Modalities Start: 03/21/21 17:53 Freq: Status: Active Protocol: Document 03/31/21 14:36 MA (Rec: 03/31/21 15:18 MA [id number]) Hot Pack/Cold Pack Treatment Ice Pack Location L bicep Patient Position Supine Treatment Duration (minutes) 10 Patient Tolerance Good PT-OP-T Assessment and Plan Start: 03/21/21 17:53 Freq: Status: Active Protocol: Document 03/31/21 14:36 MA (Rec: 03/31/21 15:18 MA [id number]) Physical Therapy Assessment Goals Three Impairment Decr'd L shldr ROM (deg's in sit: flex 130, AB 65, Ext 36) Short Term Goal (STG) Initial eval: L shldr AROM ( deg's in sit: flex 130, AB 65, Ext 36, IR hand to buttock) Pt will improve L shoulder AROM with pt able to put bra on with stiffness at shoulder and pain no greater than 2/10. STG Duration 05/05/21 Usp Goal (LTG) Initial eval: L shldr PROM ( deg's in sup: flex 137, AB 80, ER 10, IR 18) Pt will improve L shoulder PROM, with pt able to lie down without L shoulder aching pain. LTG Duration 06/22/21 Two Impairment Decreased L shoulder strength due to pain. Short Term Goal (STG) Increase L shoulder strength 1 /2 grade (Initial: Ext 4/5, ER 3/5 horiz AD 4/5) to improve pt's ability to lie down with less shoulder pain. STG Duration 05/05/21 Usp Goal (LTG) Increase L shoulder strength to no less than 4+/5, with pt able to sleep at night at her prior level of disruption ( waking a couple times a night) but not due to L shoulder pain. LTG Duration 06/22/21 One Impairment Lacks appropriate self care HEP Short Term Goal (STG) Pt will be educated in sleeping positions to minimize pain at night. Usp Goal (LTG) Pt will be independent in a self care HEP of L neck and shoulder exercises. LTG Duration 06/22/21 Assessment Summary Assessment Pt continues to have pain along anterior humerus throughout flexion and ER exercises. The pain is only at 1/10 when ER in neutral. Pt is unable to tolerate ER from 90 degrees abduction. Pt can flex shoulder to 90 degrees before feeling pain. She has no pain during IR sleeper stretch on L side. She requires cues for codemans pendulum exercise from HEP to relax shoulder and move her body to create arm circles vs actively circling arm. Encouraged pt to try icing bicep regularly at home and report if ice helps decrease pain. Continued with STM to left bicep and icing at end of session since pt felt relief after last session. Physical Therapy Plan Frequency and Duration Frequency of Treatment 2x/Week Plan of Care Start Date 03/24/21 Plan of Care End Date 06/22/21 Therapeutic Interventions Therapeutic Interventions Home Exercise Program,Joint Mobilizations,Manual Therapy, Neuromuscular Re-education, Patient/Caregiver Education, Self-Care/Home Management,Soft Tissue Mobilization,Taping, Therapeutic Activities, Therapeutic Exercises Next Visit Focus/Plan Next Note Type Treatment Note Next Visit Plan Review instructed HEP and issue handouts (windshield wipe and L shoulder ER stretch with arm on table). Assess response to pt's instructions to increase use of cryotherapy for pain management. Start AROM (codmans & RC active ROM ex's), and modalities or ex to start to increase tissue flexibility prior to JMT and stretching of GHJ. Rehab for L frozen shoulder/impingement.
--- NOTE | 2021-04-04 16:52 | PT.OTN ---
Current Diagnoses Stiffness of left shoulder, not elsewhere classified (04/04/21) Muscle weakness (generalized) (04/04/21) Strain of unspecified muscle, fascia and tendon at shoulder and upper arm level, left arm, initial encounter (04/04/21) Physical Therapy Treatment Note PT-OP-A Visit Information Start: 03/21/21 17:53 Freq: Status: Active Protocol: Document 04/04/21 13:33 LRN (Rec: 04/04/21 14:19 LRN [id number]) Out-Patient Physical Therapy Visit Information Visit Information Visit Type Treatment Note Visit Start Time 13:33 Visit Stop Time 14:15 Total Visit Minutes 42 Visit Number 4 Evaluation Information Evaluation Date 03/24/21 Precautions Precautions Controlled high cholesteral with Statin medication, 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 PT-OP-B Current Condition Start: 03/21/21 17:53 Freq: Status: Active Protocol: Document 03/24/21 13:33 LRN (Rec: 03/24/21 14:29 LRN [id number]) Current Condition History of Current Condition Onset Date 4 months ago Current Complaints Sore L lateral brachium and shoulder. Can't reach behind/ lift History of Current Condition L shoulder started to hurt after receiving COVID injection. Pain is anterior L shoulder and lateral upper arm (deltoid region). Prior to injection she was just starting to get soreness at top of the shoulder minor ache when doing exercises. Used 8# hand weights 5 days a week while in bed. She is having difficulty sleeping and trouble dressing (putting bra on). She is taking IBP & using deep blue cream to help get to sleep. In recliner supports shoulder from behind with a pillow for comfort. She has had prednisone for a few days that helped her sleep to be more regular (waking only to use bathroom and clear nose). Sometimes when lying at night her pain radiates from shoulder to the neck. Prior Treatments and Tests None Future Testing and Treatments Planned None Developmental History Developmental History Pt is R handed. Treatment Goals Patient/Caregiver Goals Pt goal is to be able to put bra on, sleep at night, and to lie down without shoulder aching. Prior Functional Status Baseline Function- ADL's Independent Baseline Function- Mobility Independent Baseline Function- Other Wakes a couple times a night to use bathroom or blow nose. Able to lie in bed without aching pain. No pain with dressing (putting bra on). Current Functional Impairments (Reported) Functional Limitations- ADL's Sleeps hourly due to needing bathroom visits, coughing, runny nose, and lately L shoulder pain. Notices more lately creaking in neck when moves head (was evident prior to worsening of L shoulder pain. Functional Limitations- Mobility/Gait No pain with gait. Functional Limitations- Recreation/ Gardens, sometimes hurts, then Hobbies has to adjust what she is doing. Functional Limitations- Other Not able to lie down due to ache pain. Difficulty putting bra on, pulling up pants. Personal Factors Other Personal Factors That May Effect None Therapy/Recovery PT-OP-C Subjective Start: 03/21/21 17:53 Freq: Status: Active Protocol: Document 04/04/21 13:33 LRN (Rec: 04/04/21 14:19 LRN [id number]) OP-PT Subjective Patient Comments Patient Comments Not bothering as much at night . During the day L shoulder and upper arm (lateral deltoid ) still bothers her PT-OP-E Functional Tests Start: 03/21/21 17:53 Freq: Status: Active Protocol: Document 03/24/21 13:33 LRN (Rec: 03/24/21 14:29 LRN [id number]) Functional Tests Apley's Scratch Test Action 1- Left Top of UT Action 1- Right Supraspinatus, almost to spine Action 2- Left C7 Action 2- Right T1 Action 3- Left Posterior Buttock Action 3- Right T7 PT-OP-H Neuro Start: 03/21/21 17:53 Freq: Status: Active Protocol: Document 03/24/21 13:33 LRN (Rec: 03/24/21 14:29 LRN [id number]) Sensation Evaluation Gross Sensation Gross Sensation WNL PT-OP-J Posture/Palpation/Skin Start: 03/21/21 17:53 Freq: Status: Active Protocol: Document 03/24/21 13:33 LRN (Rec: 03/24/21 14:29 LRN [id number]) Posture Evaluation Position Standing Head/C-Spine Posture Forward Head T-Spine Posture Increased Kyphosis Shoulder Posture (L) Rounded,(R) Rounded Scapula Posture (L) Elevated Palpation Assessment Location L neck Palpation Location UT Palpation Findings Muscle Guarding,Tenderness L shoulder Palpation Location Pec Minor, anterior & middle deltoid Palpation Findings Soft Tissue Tightness, Tenderness Palpation Details No pain subacromial region or Rotator Cuff attachments at humeral head. PT-OP-K Range of Motion Start: 03/21/21 17:53 Freq: Status: Active Protocol: Document 03/24/21 13:33 LRN (Rec: 03/24/21 14:29 LRN [id number]) Cervical Spine Range of Motion Cervical Spine Active Percentage Testing Position Sitting Flexion 100 Extension 90 Rotation Left 45 Rotation Right 45 Lateral Flexion Left 20 Lateral Flexion Right 20 Shoulder Goniometric Range of Motion Shoulder Right Passive Shoulder ROM WFL Yes Testing Position Supine Flexion 173 Abduction 180 External Rotation at 90 degrees 68 Abduction Internal Rotation 76 Left Passive Shoulder ROM WFL No Testing Position Supine Flexion 137 Abduction 80 Internal Rotation 18 Comments ER 10 deg's at 80 deg's AB. Right Active Testing Position Sitting Flexion 180 Extension 70 Abduction 180 Internal Rotation Behind Back (text) T7 Left Active Shoulder ROM WFL No Testing Position Sitting Flexion 130 Extension 36 Abduction 65 Internal Rotation Behind Back (text) Buttock PT-OP-L Special Tests Start: 03/21/21 17:53 Freq: Status: Active Protocol: Document 03/24/21 13:33 LRN (Rec: 03/24/21 16:13 LRN [id number]) Special Tests Shoulder Special Tests Overton [place] Impingement Test Results Positive L shoulder Elevation Impingement Test Results Positive L shoulder Anterior Draw Test Results Negative L shoulder PT-OP-M Strength Start: 03/21/21 17:53 Freq: Status: Active Protocol: Document 03/24/21 13:33 LRN (Rec: 03/24/21 14:29 LRN [id number]) Cervical Spine Strength Cervical Spine Manual Muscle Testing Comments Generally 5/5 Shoulder Strength Shoulder Manual Muscle Testing Right Abduction (C5) 4 Good Comments Strength is 5/5 except as indicated above. Left Extension 4 Good Adduction 5 Normal External Rotation 3 Fair Horizontal Adduction 4 Good Comments Strength is 5/5 with break testing except as indicated above. Pain limited strength in areas less than 5/5 Elbow/Forearm Strength Elbow and Forearm Manual Muscle Testing Right Flexion (C6) 5 Normal Extension (C7) 5 Normal Left Flexion (C6) 5 Normal Extension (C7) 5 Normal PT-OP-Q Treatments Start: 03/21/21 17:53 Freq: Status: Active Protocol: Document 04/04/21 13:33 LRN (Rec: 04/04/21 14:19 LRN [id number]) Therapeutic Exercises Supine Exercises ER stretch w/cane Supine Exercise Name ER stretch w/cane Side left Reps/Minutes 8' Flexion Supine Exercise Name R Wand flex stretch Side bilateral Reps/Minutes 6' ER Supine Exercise Name [place] wiper Side bilateral Reps/Minutes 15 x 2 Comments 1# weight Standing Exercises Shoulder IR stretch Standing Exercise Name Towel stretch Side left Reps/Minutes 6' Manual Therapy Treatment Joint Mobilizations L GHJ Joint L GHJ Direction PA, AP Grade II Body Position Supine Reps/Duration 8' Self-Care/Home Management Treatment Education Patient Education Home Exercise Program Activities Self-Care/Home Management Activities Issued & reviewed HEP: Aj 'sBeatriz ex's for stretch to ER, IR, flex. PT-OP-R Modalities Start: 03/21/21 17:53 Freq: Status: Active Protocol: Document 03/31/21 14:36 MA (Rec: 03/31/21 15:18 MA [id number]) Hot Pack/Cold Pack Treatment Ice Pack Location L bicep Patient Position Supine Treatment Duration (minutes) 10 Patient Tolerance Good PT-OP-T Assessment and Plan Start: 03/21/21 17:53 Freq: Status: Active Protocol: Document 04/04/21 13:33 LRN (Rec: 04/04/21 14:19 LRN [id number]) Physical Therapy Assessment Goals Three Impairment Decr'd L shldr ROM (deg's in sit: flex 130, AB 65, Ext 36) Short Term Goal (STG) Initial eval: L shldr AROM ( deg's in sit: flex 130, AB 65, Ext 36, IR hand to buttock) Pt will improve L shoulder AROM with pt able to put bra on with stiffness at shoulder and pain no greater than 2/10. STG Duration 05/05/21 [facility] Goal (LTG) Initial eval: L shldr PROM ( deg's in sup: flex 137, AB 80, ER 10, IR 18) Pt will improve L shoulder PROM, with pt able to lie down without L shoulder aching pain. LTG Duration 06/22/21 Two Impairment Decreased L shoulder strength due to pain. Short Term Goal (STG) Increase L shoulder strength 1 /2 grade (Initial: Ext 4/5, ER 3/5 horiz AD 4/5) to improve pt's ability to lie down with less shoulder pain. STG Duration 05/05/21 [facility] Goal (LTG) Increase L shoulder strength to no less than 4+/5, with pt able to sleep at night at her prior level of disruption ( waking a couple times a night) but not due to L shoulder pain. LTG Duration 06/22/21 One Impairment Lacks appropriate self care HEP Short Term Goal (STG) Pt will be educated in sleeping positions to minimize pain at night. [facility] Goal (LTG) Pt will be independent in a self care HEP of L neck and shoulder exercises. LTG Duration 06/22/21 Assessment Summary Assessment Pt demonstrates signs & symptoms of L frozen shoulder, most limited in L shoulder ER /IR. Matyman's ex helps to reduce pain after exercise. I was not able to identify the location of popping in L shoulder with ROM ex's, but pt had no c/o discomfort with popping. Pt was not doing enough ex at home; therefore further instructions were needed. Physical Therapy Plan Frequency and Duration Frequency of Treatment 2x/Week Plan of Care Start Date 03/24/21 Plan of Care End Date 06/22/21 Next Visit Focus/Plan Next Note Type Treatment Note Next Visit Plan Review instructed HEP and consistency of ex's and issue handouts (ER/IR strengthening & L shoulder ER stretch with arm in ER and body in various positions). Assess response to pt's instructions to increase use of cryotherapy for pain management. Start ARROM (RC end-range active ROM and ARROM ex's), modalities or ex to start to increase tissue flexibility prior to JMT and stretching of GHJ. Possibly end with ultrasound for pain. Rehab for L shoulder ?adhesive capsulitis vs frozen shoulder and impingement.
--- NOTE | 2021-04-14 15:34 | PT.OTN ---
Current Diagnoses Stiffness of left shoulder, not elsewhere classified (04/14/21) Muscle weakness (generalized) (04/14/21) Strain of unspecified muscle, fascia and tendon at shoulder and upper arm level, left arm, initial encounter (04/14/21) Physical Therapy Treatment Note PT-OP-A Visit Information Start: 03/21/21 17:53 Freq: Status: Active Protocol: Document 04/14/21 14:36 MA (Rec: 04/14/21 15:17 MA [id number]) Out-Patient Physical Therapy Visit Information Visit Information Visit Type Treatment Note Visit Start Time 14:30 Visit Stop Time 15:14 Total Visit Minutes 44 Visit Number 5 Number of HARDBOARD GRINDER Visits 1 Precautions Precautions Controlled high cholesteral with Statin medication, 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 PT-OP-B Current Condition Start: 03/21/21 17:53 Freq: Status: Active Protocol: Document 03/24/21 13:33 LRN (Rec: 03/24/21 14:29 LRN [id number]) Current Condition History of Current Condition Onset Date 4 months ago Current Complaints Sore L lateral brachium and shoulder. Can't reach behind/ lift History of Current Condition L shoulder started to hurt after receiving COVID injection. Pain is anterior L shoulder and lateral upper arm (deltoid region). Prior to injection she was just starting to get soreness at top of the shoulder minor ache when doing exercises. Used 8# hand weights 5 days a week while in bed. She is having difficulty sleeping and trouble dressing (putting bra on). She is taking IBP & using deep blue cream to help get to sleep. In recliner supports shoulder from behind with a pillow for comfort. She has had prednisone for a few days that helped her sleep to be more regular (waking only to use bathroom and clear nose). Sometimes when lying at night her pain radiates from shoulder to the neck. Prior Treatments and Tests None Future Testing and Treatments Planned None Developmental History Developmental History Pt is R handed. Treatment Goals Patient/Caregiver Goals Pt goal is to be able to put bra on, sleep at night, and to lie down without shoulder aching. Prior Functional Status Baseline Function- ADL's Independent Baseline Function- Mobility Independent Baseline Function- Other Wakes a couple times a night to use bathroom or blow nose. Able to lie in bed without aching pain. No pain with dressing (putting bra on). Current Functional Impairments (Reported) Functional Limitations- ADL's Sleeps hourly due to needing bathroom visits, coughing, runny nose, and lately L shoulder pain. Notices more lately creaking in neck when moves head (was evident prior to worsening of L shoulder pain. Functional Limitations- Mobility/Gait No pain with gait. Functional Limitations- Recreation/ Gardens, sometimes hurts, then Hobbies has to adjust what she is doing. Functional Limitations- Other Not able to lie down due to ache pain. Difficulty putting bra on, pulling up pants. Personal Factors Other Personal Factors That May Effect None Therapy/Recovery PT-OP-C Subjective Start: 03/21/21 17:53 Freq: Status: Active Protocol: Document 04/14/21 14:36 MA (Rec: 04/14/21 15:17 MA [id number]) OP-PT Subjective Patient Comments Patient Comments Pt has been using cryotherapy at home on L shd and feels it is helping with her pain. PT-OP-E Functional Tests Start: 03/21/21 17:53 Freq: Status: Active Protocol: Document 03/24/21 13:33 LRN (Rec: 03/24/21 14:29 LRN [id number]) Functional Tests Apley's Scratch Test Action 1- Left Top of UT Action 1- Right Supraspinatus, almost to spine Action 2- Left C7 Action 2- Right T1 Action 3- Left Posterior Buttock Action 3- Right T7 PT-OP-H Neuro Start: 03/21/21 17:53 Freq: Status: Active Protocol: Document 03/24/21 13:33 LRN (Rec: 03/24/21 14:29 LRN [id number]) Sensation Evaluation Gross Sensation Gross Sensation WNL PT-OP-J Posture/Palpation/Skin Start: 03/21/21 17:53 Freq: Status: Active Protocol: Document 03/24/21 13:33 LRN (Rec: 03/24/21 14:29 LRN [id number]) Posture Evaluation Position Standing Head/C-Spine Posture Forward Head T-Spine Posture Increased Kyphosis Shoulder Posture (L) Rounded,(R) Rounded Scapula Posture (L) Elevated Palpation Assessment Location L neck Palpation Location [place] Palpation Findings Muscle Guarding,Tenderness L shoulder Palpation Location Pec Minor, anterior & middle deltoid Palpation Findings Soft Tissue Tightness, Tenderness Palpation Details No pain subacromial region or Rotator Cuff attachments at humeral head. PT-OP-K Range of Motion Start: 03/21/21 17:53 Freq: Status: Active Protocol: Document 03/24/21 13:33 LRN (Rec: 03/24/21 14:29 LRN [id number]) Cervical Spine Range of Motion Cervical Spine Active Percentage Testing Position Sitting Flexion 100 Extension 90 Rotation Left 45 Rotation Right 45 Lateral Flexion Left 20 Lateral Flexion Right 20 Shoulder Goniometric Range of Motion Shoulder Right Passive Shoulder ROM WFL Yes Testing Position Supine Flexion 173 Abduction 180 External Rotation at 90 degrees 68 Abduction Internal Rotation 76 Left Passive Shoulder ROM WFL No Testing Position Supine Flexion 137 Abduction 80 Internal Rotation 18 Comments ER 10 deg's at 80 deg's AB. Right Active Testing Position Sitting Flexion 180 Extension 70 Abduction 180 Internal Rotation Behind Back (text) T7 Left Active Shoulder ROM WFL No Testing Position Sitting Flexion 130 Extension 36 Abduction 65 Internal Rotation Behind Back (text) Buttock PT-OP-L Special Tests Start: 03/21/21 17:53 Freq: Status: Active Protocol: Document 03/24/21 13:33 LRN (Rec: 03/24/21 16:13 LRN [id number]) Special Tests Shoulder Special Tests Overton [place] Impingement Test Results Positive L shoulder Elevation Impingement Test Results Positive L shoulder Anterior Draw Test Results Negative L shoulder PT-OP-M Strength Start: 03/21/21 17:53 Freq: Status: Active Protocol: Document 03/24/21 13:33 LRN (Rec: 03/24/21 14:29 LRN [id number]) Cervical Spine Strength Cervical Spine Manual Muscle Testing Comments Generally 5/5 Shoulder Strength Shoulder Manual Muscle Testing Right Abduction (C5) 4 Good Comments Strength is 5/5 except as indicated above. Left Extension 4 Good Adduction 5 Normal External Rotation 3 Fair Horizontal Adduction 4 Good Comments Strength is 5/5 with break testing except as indicated above. Pain limited strength in areas less than 5/5 Elbow/Forearm Strength Elbow and Forearm Manual Muscle Testing Right Flexion (C6) 5 Normal Extension (C7) 5 Normal Left Flexion (C6) 5 Normal Extension (C7) 5 Normal PT-OP-Q Treatments Start: 03/21/21 17:53 Freq: Status: Active Protocol: Document 04/14/21 14:36 MA (Rec: 04/14/21 15:17 MA [id number]) Therapeutic Exercises Supine Exercises ER stretch w/cane Supine Exercise Name ER stretch w/cane Side left Reps/Minutes 6' Flexion Supine Exercise Name R Wand flex stretch Side bilateral Reps/Minutes 6' ER Supine Exercise Name luis fernandoield wiper Side bilateral Reps/Minutes 15 x 2 Comments 1# weight Sitting Exercises Extension Sitting Exercise Name shd ext Equipment Used wand Reps/Minutes 2' ER Sitting Exercise Name shd ER with wand Side left Reps/Minutes 4' Standing Exercises ABD Standing Exercise Name Shd ABD Equipment Used wand Reps/Minutes 2' Shoulder IR stretch Standing Exercise Name Towel stretch Side left Reps/Minutes 2' PT-OP-R Modalities Start: 03/21/21 17:53 Freq: Status: Active Protocol: Document 04/14/21 14:36 MA (Rec: 04/14/21 15:17 MA [id number]) Ultrasound Therapy Treatment L shd Treatment Duration (minutes) 6 Patient Position Sitting Coupling Medium Ultrasound Gel Mode Setting Pulsed Duty Cycle 20% Intensity Setting (w/cm2) 1.0 Comments L anterior & mid delt, RTC PT-OP-T Assessment and Plan Start: 03/21/21 17:53 Freq: Status: Active Protocol: Document 04/14/21 14:36 MA (Rec: 04/14/21 15:17 MA [id number]) Physical Therapy Assessment Goals Three Impairment Decr'd L shldr ROM (deg's in sit: flex 130, AB 65, Ext 36) Short Term Goal (STG) Initial eval: L shldr AROM ( deg's in sit: flex 130, AB 65, Ext 36, IR hand to buttock) Pt will improve L shoulder AROM with pt able to put bra on with stiffness at shoulder and pain no greater than 2/10. STG Duration 05/05/21 [facility] Goal (LTG) Initial eval: L shldr PROM ( deg's in sup: flex 137, AB 80, ER 10, IR 18) Pt will improve L shoulder PROM, with pt able to lie down without L shoulder aching pain. LTG Duration 06/22/21 Two Impairment Decreased L shoulder strength due to pain. Short Term Goal (STG) Increase L shoulder strength 1 /2 grade (Initial: Ext 4/5, ER 3/5 horiz AD 4/5) to improve pt's ability to lie down with less shoulder pain. STG Duration 05/05/21 [facility] Goal (LTG) Increase L shoulder strength to no less than 4+/5, with pt able to sleep at night at her prior level of disruption ( waking a couple times a night) but not due to L shoulder pain. LTG Duration 06/22/21 One Impairment Lacks appropriate self care HEP Short Term Goal (STG) Pt will be educated in sleeping positions to minimize pain at night. [facility] Goal (LTG) Pt will be independent in a self care HEP of L neck and shoulder exercises. LTG Duration 06/22/21 Assessment Summary Assessment Worked on increasing pt's L shd ROM with AAROM using wand for shd flexion, ext, ER, ABD, and used towel for IR. Pt had increased pain to 8/10 today with IR and ext. Widening weigher and charger on wand during ext exercise reduced pain to 4/10. Used pulsed US for pain management at end of session. Encouraged pt to continue with HEP issued last session and using cryotherapy for pain management at home. Physical Therapy Plan Frequency and Duration Frequency of Treatment 2x/Week Plan of Care Start Date 03/24/21 Plan of Care End Date 06/22/21 Therapeutic Interventions Therapeutic Interventions Home Exercise Program,Joint Mobilizations,Manual Therapy, Neuromuscular Re-education, Patient/Caregiver Education, Self-Care/Home Management,Soft Tissue Mobilization,Taping, Therapeutic Activities, Therapeutic Exercises Next Visit Focus/Plan Next Note Type Treatment Note Next Visit Plan Continue with US to L shd for pain Review instructed HEP and consistency of ex's and issue handouts (ER/IR strengthening & L shoulder ER stretch with arm in ER and body in various positions). Start ARROM (RC end-range active ROM and ARROM ex's), modalities or ex to start to increase tissue flexibility prior to JMT and stretching of GHJ. Rehab for L shoulder ?adhesive capsulitis vs frozen shoulder and impingement.
--- NOTE | 2021-04-18 14:22 | PT.OTN ---
Current Diagnoses Stiffness of left shoulder, not elsewhere classified (04/18/21) Muscle weakness (generalized) (04/18/21) Strain of unspecified muscle, fascia and tendon at shoulder and upper arm level, left arm, initial encounter (04/18/21) Physical Therapy Treatment Note PT-OP-A Visit Information Start: 03/21/21 17:53 Freq: Status: Active Protocol: Document 04/18/21 13:38 MA (Rec: 04/18/21 14:21 MA [id number]) Out-Patient Physical Therapy Visit Information Visit Information Visit Type Treatment Note Visit Start Time 13:35 Visit Stop Time 14:25 Total Visit Minutes 50 Visit Number 6 Number of COFFEE HOST Visits 2 Precautions Precautions Controlled high cholesteral with Statin medication, 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 PT-OP-B Current Condition Start: 03/21/21 17:53 Freq: Status: Active Protocol: Document 03/24/21 13:33 LRN (Rec: 03/24/21 14:29 LRN [id number]) Current Condition History of Current Condition Onset Date 4 months ago Current Complaints Sore L lateral brachium and shoulder. Can't reach behind/ lift History of Current Condition L shoulder started to hurt after receiving COVID injection. Pain is anterior L shoulder and lateral upper arm (deltoid region). Prior to injection she was just starting to get soreness at top of the shoulder minor ache when doing exercises. Used 8# hand weights 5 days a week while in bed. She is having difficulty sleeping and trouble dressing (putting bra on). She is taking IBP & using deep blue cream to help get to sleep. In recliner supports shoulder from behind with a pillow for comfort. She has had prednisone for a few days that helped her sleep to be more regular (waking only to use bathroom and clear nose). Sometimes when lying at night her pain radiates from shoulder to the neck. Prior Treatments and Tests None Future Testing and Treatments Planned None Developmental History Developmental History Pt is R handed. Treatment Goals Patient/Caregiver Goals Pt goal is to be able to put bra on, sleep at night, and to lie down without shoulder aching. Prior Functional Status Baseline Function- ADL's Independent Baseline Function- Mobility Independent Baseline Function- Other Wakes a couple times a night to use bathroom or blow nose. Able to lie in bed without aching pain. No pain with dressing (putting bra on). Current Functional Impairments (Reported) Functional Limitations- ADL's Sleeps hourly due to needing bathroom visits, coughing, runny nose, and lately L shoulder pain. Notices more lately creaking in neck when moves head (was evident prior to worsening of L shoulder pain. Functional Limitations- Mobility/Gait No pain with gait. Functional Limitations- Recreation/ Gardens, sometimes hurts, then Hobbies has to adjust what she is doing. Functional Limitations- Other Not able to lie down due to ache pain. Difficulty putting bra on, pulling up pants. Personal Factors Other Personal Factors That May Effect None Therapy/Recovery PT-OP-C Subjective Start: 03/21/21 17:53 Freq: Status: Active Protocol: Document 04/18/21 13:38 MA (Rec: 04/18/21 14:21 MA [id number]) OP-PT Subjective Patient Comments Patient Comments Pt feels her shd is a little better since starting therapy . It bothers her mostly at night. She does not think the US did anything for her shd to reduce pain PT-OP-E Functional Tests Start: 03/21/21 17:53 Freq: Status: Active Protocol: Document 03/24/21 13:33 LRN (Rec: 03/24/21 14:29 LRN [id number]) Functional Tests Apley's Scratch Test Action 1- Left Top of UT Action 1- Right Supraspinatus, almost to spine Action 2- Left C7 Action 2- Right T1 Action 3- Left Posterior Buttock Action 3- Right T7 PT-OP-H Neuro Start: 03/21/21 17:53 Freq: Status: Active Protocol: Document 03/24/21 13:33 LRN (Rec: 03/24/21 14:29 LRN [id number]) Sensation Evaluation Gross Sensation Gross Sensation WNL PT-OP-J Posture/Palpation/Skin Start: 03/21/21 17:53 Freq: Status: Active Protocol: Document 03/24/21 13:33 LRN (Rec: 03/24/21 14:29 LRN [id number]) Posture Evaluation Position Standing Head/C-Spine Posture Forward Head T-Spine Posture Increased Kyphosis Shoulder Posture (L) Rounded,(R) Rounded Scapula Posture (L) Elevated Palpation Assessment Location L neck Palpation Location UT Palpation Findings Muscle Guarding,Tenderness L shoulder Palpation Location Pec Minor, anterior & middle deltoid Palpation Findings Soft Tissue Tightness, Tenderness Palpation Details No pain subacromial region or Rotator Cuff attachments at humeral head. PT-OP-K Range of Motion Start: 03/21/21 17:53 Freq: Status: Active Protocol: Document 03/24/21 13:33 LRN (Rec: 03/24/21 14:29 LRN [id number]) Cervical Spine Range of Motion Cervical Spine Active Percentage Testing Position Sitting Flexion 100 Extension 90 Rotation Left 45 Rotation Right 45 Lateral Flexion Left 20 Lateral Flexion Right 20 Shoulder Goniometric Range of Motion Shoulder Right Passive Shoulder ROM WFL Yes Testing Position Supine Flexion 173 Abduction 180 External Rotation at 90 degrees 68 Abduction Internal Rotation 76 Left Passive Shoulder ROM WFL No Testing Position Supine Flexion 137 Abduction 80 Internal Rotation 18 Comments ER 10 deg's at 80 deg's AB. Right Active Testing Position Sitting Flexion 180 Extension 70 Abduction 180 Internal Rotation Behind Back (text) T7 Left Active Shoulder ROM WFL No Testing Position Sitting Flexion 130 Extension 36 Abduction 65 Internal Rotation Behind Back (text) Buttock PT-OP-L Special Tests Start: 03/21/21 17:53 Freq: Status: Active Protocol: Document 03/24/21 13:33 LRN (Rec: 03/24/21 16:13 LRN [id number]) Special Tests Shoulder Special Tests Overton Gualberto Impingement Test Results Positive L shoulder Elevation Impingement Test Results Positive L shoulder Anterior Draw Test Results Negative L shoulder PT-OP-M Strength Start: 03/21/21 17:53 Freq: Status: Active Protocol: Document 03/24/21 13:33 LRN (Rec: 03/24/21 14:29 LRN [id number]) Cervical Spine Strength Cervical Spine Manual Muscle Testing Comments Generally 5/5 Shoulder Strength Shoulder Manual Muscle Testing Right Abduction (C5) 4 Good Comments Strength is 5/5 except as indicated above. Left Extension 4 Good Adduction 5 Normal External Rotation 3 Fair Horizontal Adduction 4 Good Comments Strength is 5/5 with break testing except as indicated above. Pain limited strength in areas less than 5/5 Elbow/Forearm Strength Elbow and Forearm Manual Muscle Testing Right Flexion (C6) 5 Normal Extension (C7) 5 Normal Left Flexion (C6) 5 Normal Extension (C7) 5 Normal PT-OP-Q Treatments Start: 03/21/21 17:53 Freq: Status: Active Protocol: Document 04/18/21 13:38 MA (Rec: 04/18/21 14:21 MA [id number]) Cardio Equipment Upper Body Ergometer (UBE) Duration (Minutes) 6 Seat Position 10 Height 2.0 Other 1' fwd/1' bkwd Therapeutic Exercises Supine Exercises ER stretch w/cane Supine Exercise Name ER stretch w/cane Side left Reps/Minutes 6' Horizontal ABD Supine Exercise Name with cane Side left Equipment Used wand Reps/Minutes 2' Flexion Supine Exercise Name R Wand flex stretch Side bilateral Reps/Minutes 6' Comments cues to move slower ER Supine Exercise Name windshield wiper Side bilateral Reps/Minutes 15 x 2 Comments 1# weight Sitting Exercises Extension Sitting Exercise Name shd ext Equipment Used wand Reps/Minutes 2' Standing Exercises Shoulder IR stretch Standing Exercise Name Towel stretch Side left Reps/Minutes 2' Pendulum Standing Exercise Name CW, CCW Side left Reps/Minutes 2x30 sec Comments cues to move body vs actively moving arm Manual Therapy Treatment Soft Tissue Mobilization Delts Body Location L medial delt Mobilization Type Sustained Pressure Intensity/Depth Moderate Body Position Supine PT-OP-R Modalities Start: 03/21/21 17:53 Freq: Status: Active Protocol: Document 04/18/21 13:38 MA (Rec: 04/18/21 14:21 MA [id number]) Hot Pack/Cold Pack Treatment Ice Pack Location L bicep Patient Position Supine Treatment Duration (minutes) 10 Patient Tolerance Good PT-OP-T Assessment and Plan Start: 03/21/21 17:53 Freq: Status: Active Protocol: Document 04/18/21 13:38 MA (Rec: 04/18/21 14:21 MA [id number]) Physical Therapy Assessment Goals Three Impairment Decr'd L shldr ROM (deg's in sit: flex 130, AB 65, Ext 36) Short Term Goal (STG) Initial eval: L shldr AROM ( deg's in sit: flex 130, AB 65, Ext 36, IR hand to buttock) Pt will improve L shoulder AROM with pt able to put bra on with stiffness at shoulder and pain no greater than 2/10. STG Duration 05/05/21 Longterm Goal (LTG) Initial eval: L shldr PROM ( deg's in sup: flex 137, AB 80, ER 10, IR 18) Pt will improve L shoulder PROM, with pt able to lie down without L shoulder aching pain. LTG Duration 06/22/21 Two Impairment Decreased L shoulder strength due to pain. Short Term Goal (STG) Increase L shoulder strength 1 /2 grade (Initial: Ext 4/5, ER 3/5 horiz AD 4/5) to improve pt's ability to lie down with less shoulder pain. STG Duration 05/05/21 Longterm Goal (LTG) Increase L shoulder strength to no less than 4+/5, with pt able to sleep at night at her prior level of disruption ( waking a couple times a night) but not due to L shoulder pain. LTG Duration 06/22/21 One Impairment Lacks appropriate self care HEP Short Term Goal (STG) Pt will be educated in sleeping positions to minimize pain at night. Paperhanger And Painter Goal (LTG) Pt will be independent in a self care HEP of L neck and shoulder exercises. LTG Duration 06/22/21 Assessment Summary Assessment Pt fatigues during extension exercise today with cane. She has minor pain in L shd when starting movements, but after 30 sec of AAROM with cane in any direction, her pain is reduced. She has the most pain during IR exercise. Pt asks to end with ice today vs US to LUE. Physical Therapy Plan Frequency and Duration Frequency of Treatment 2x/Week Plan of Care Start Date 03/24/21 Plan of Care End Date 06/22/21 Therapeutic Interventions Therapeutic Interventions Home Exercise Program,Joint Mobilizations,Manual Therapy, Neuromuscular Re-education, Patient/Caregiver Education, Self-Care/Home Management,Soft Tissue Mobilization,Taping, Therapeutic Activities, Therapeutic Exercises Next Visit Focus/Plan Next Note Type Treatment Note Next Visit Plan Continue with US to L shd for pain Review instructed HEP and consistency of ex's and issue handouts (ER/IR strengthening & L shoulder ER stretch with arm in ER and body in various positions). Start ARROM (RC end-range active ROM and ARROM ex's), modalities or ex to start to increase tissue flexibility prior to JMT and stretching of GHJ. Rehab for L shoulder ?adhesive capsulitis vs frozen shoulder and impingement.
--- NOTE | 2021-04-21 14:34 | PT.OTN ---
Current Diagnoses Stiffness of left shoulder, not elsewhere classified (04/21/21) Muscle weakness (generalized) (04/21/21) Strain of unspecified muscle, fascia and tendon at shoulder and upper arm level, left arm, initial encounter (04/21/21) Physical Therapy Treatment Note PT-OP-A Visit Information Start: 03/21/21 17:53 Freq: Status: Active Protocol: Document 04/21/21 13:44 MA (Rec: 04/21/21 14:31 MA [id number]) Out-Patient Physical Therapy Visit Information Visit Information Visit Type Treatment Note Visit Start Time 13:45 Visit Stop Time 14:27 Total Visit Minutes 42 Visit Number 7 Number of BRAND LEADER Visits 3 Precautions Precautions Controlled high cholesteral with Statin medication, 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 PT-OP-B Current Condition Start: 03/21/21 17:53 Freq: Status: Active Protocol: Document 03/24/21 13:33 LRN (Rec: 03/24/21 14:29 LRN [id number]) Current Condition History of Current Condition Onset Date 4 months ago Current Complaints Sore L lateral brachium and shoulder. Can't reach behind/ lift History of Current Condition L shoulder started to hurt after receiving COVID injection. Pain is anterior L shoulder and lateral upper arm (deltoid region). Prior to injection she was just starting to get soreness at top of the shoulder minor ache when doing exercises. Used 8# hand weights 5 days a week while in bed. She is having difficulty sleeping and trouble dressing (putting bra on). She is taking IBP & using deep blue cream to help get to sleep. In recliner supports shoulder from behind with a pillow for comfort. She has had prednisone for a few days that helped her sleep to be more regular (waking only to use bathroom and clear nose). Sometimes when lying at night her pain radiates from shoulder to the neck. Prior Treatments and Tests None Future Testing and Treatments Planned None Developmental History Developmental History Pt is R handed. Treatment Goals Patient/Caregiver Goals Pt goal is to be able to put bra on, sleep at night, and to lie down without shoulder aching. Prior Functional Status Baseline Function- ADL's Independent Baseline Function- Mobility Independent Baseline Function- Other Wakes a couple times a night to use bathroom or blow nose. Able to lie in bed without aching pain. No pain with dressing (putting bra on). Current Functional Impairments (Reported) Functional Limitations- ADL's Sleeps hourly due to needing bathroom visits, coughing, runny nose, and lately L shoulder pain. Notices more lately creaking in neck when moves head (was evident prior to worsening of L shoulder pain. Functional Limitations- Mobility/Gait No pain with gait. Functional Limitations- Recreation/ Gardens, sometimes hurts, then Hobbies has to adjust what she is doing. Functional Limitations- Other Not able to lie down due to ache pain. Difficulty putting bra on, pulling up pants. Personal Factors Other Personal Factors That May Effect None Therapy/Recovery PT-OP-C Subjective Start: 03/21/21 17:53 Freq: Status: Active Protocol: Document 04/21/21 13:44 MA (Rec: 04/21/21 14:33 MA [id number]) OP-PT Subjective Patient Comments Patient Comments My shoulder feels like it gets a little bettter every time PT-OP-E Functional Tests Start: 03/21/21 17:53 Freq: Status: Active Protocol: Document 03/24/21 13:33 LRN (Rec: 03/24/21 14:29 LRN [id number]) Functional Tests Apley's Scratch Test Action 1- Left Top of UT Action 1- Right Supraspinatus, almost to spine Action 2- Left C7 Action 2- Right T1 Action 3- Left Posterior Buttock Action 3- Right T7 PT-OP-H Neuro Start: 03/21/21 17:53 Freq: Status: Active Protocol: Document 03/24/21 13:33 LRN (Rec: 03/24/21 14:29 LRN [id number]) Sensation Evaluation Gross Sensation Gross Sensation WNL PT-OP-J Posture/Palpation/Skin Start: 03/21/21 17:53 Freq: Status: Active Protocol: Document 03/24/21 13:33 LRN (Rec: 03/24/21 14:29 LRN [id number]) Posture Evaluation Position Standing Head/C-Spine Posture Forward Head T-Spine Posture Increased Kyphosis Shoulder Posture (L) Rounded,(R) Rounded Scapula Posture (L) Elevated Palpation Assessment Location L neck Palpation Location [place] Palpation Findings Muscle Guarding,Tenderness L shoulder Palpation Location Pec Minor, anterior & middle deltoid Palpation Findings Soft Tissue Tightness, Tenderness Palpation Details No pain subacromial region or Rotator Cuff attachments at humeral head. PT-OP-K Range of Motion Start: 03/21/21 17:53 Freq: Status: Active Protocol: Document 03/24/21 13:33 LRN (Rec: 03/24/21 14:29 LRN [id number]) Cervical Spine Range of Motion Cervical Spine Active Percentage Testing Position Sitting Flexion 100 Extension 90 Rotation Left 45 Rotation Right 45 Lateral Flexion Left 20 Lateral Flexion Right 20 Shoulder Goniometric Range of Motion Shoulder Right Passive Shoulder ROM WFL Yes Testing Position Supine Flexion 173 Abduction 180 External Rotation at 90 degrees 68 Abduction Internal Rotation 76 Left Passive Shoulder ROM WFL No Testing Position Supine Flexion 137 Abduction 80 Internal Rotation 18 Comments ER 10 deg's at 80 deg's AB. Right Active Testing Position Sitting Flexion 180 Extension 70 Abduction 180 Internal Rotation Behind Back (text) T7 Left Active Shoulder ROM WFL No Testing Position Sitting Flexion 130 Extension 36 Abduction 65 Internal Rotation Behind Back (text) Buttock PT-OP-L Special Tests Start: 03/21/21 17:53 Freq: Status: Active Protocol: Document 03/24/21 13:33 LRN (Rec: 03/24/21 16:13 LRN [id number]) Special Tests Shoulder Special Tests Overton Gualberto Impingement Test Results Positive L shoulder Elevation Impingement Test Results Positive L shoulder Anterior Draw Test Results Negative L shoulder PT-OP-M Strength Start: 03/21/21 17:53 Freq: Status: Active Protocol: Document 03/24/21 13:33 LRN (Rec: 03/24/21 14:29 LRN [id number]) Cervical Spine Strength Cervical Spine Manual Muscle Testing Comments Generally 5/5 Shoulder Strength Shoulder Manual Muscle Testing Right Abduction (C5) 4 Good Comments Strength is 5/5 except as indicated above. Left Extension 4 Good Adduction 5 Normal External Rotation 3 Fair Horizontal Adduction 4 Good Comments Strength is 5/5 with break testing except as indicated above. Pain limited strength in areas less than 5/5 Elbow/Forearm Strength Elbow and Forearm Manual Muscle Testing Right Flexion (C6) 5 Normal Extension (C7) 5 Normal Left Flexion (C6) 5 Normal Extension (C7) 5 Normal PT-OP-Q Treatments Start: 03/21/21 17:53 Freq: Status: Active Protocol: Document 04/21/21 13:44 MA (Rec: 04/21/21 14:31 MA [id number]) Cardio Equipment Upper Body Ergometer (UBE) Duration (Minutes) 6 Seat Position 10 Height 2.0 Other fwd only Therapeutic Exercises Supine Exercises Flexion Supine Exercise Name R Wand flex stretch Side bilateral Reps/Minutes 6' Comments cues to move slower ER Supine Exercise Name [facility] wiper Side bilateral Reps/Minutes 15 x 2 Comments 1# weight Sitting Exercises Extension Sitting Exercise Name shd ext Equipment Used wand Reps/Minutes 2' Standing Exercises Stretch Standing Exercise Name ER stretch, pec stretch both against wall Side left Equipment Used wall Reps/Minutes 30 sec ea ER/IR Standing Exercise Name ER/IR strengthening Equipment Used #1 TB Reps/Minutes x10 ea Shoulder IR stretch Standing Exercise Name Towel stretch Side left Reps/Minutes 2' Pendulum Standing Exercise Name CW, CCW Side left Reps/Minutes 2x30 sec Comments cues to move body vs actively moving arm Manual Therapy Treatment Soft Tissue Mobilization Delts Body Location L anterior and medial delt Mobilization Type Strumming,Sustained Pressure, Trigger Point Release Intensity/Depth Moderate Body Position Supine PT-OP-R Modalities Start: 03/21/21 17:53 Freq: Status: Active Protocol: Document 04/18/21 13:38 MA (Rec: 04/18/21 14:21 MA [id number]) Hot Pack/Cold Pack Treatment Ice Pack Location L bicep Patient Position Supine Treatment Duration (minutes) 10 Patient Tolerance Good PT-OP-T Assessment and Plan Start: 03/21/21 17:53 Freq: Status: Active Protocol: Document 04/21/21 13:44 MA (Rec: 04/21/21 14:31 MA [id number]) Physical Therapy Assessment Goals Three Impairment Decr'd L shldr ROM (deg's in sit: flex 130, AB 65, Ext 36) Short Term Goal (STG) Initial eval: L shldr AROM ( deg's in sit: flex 130, AB 65, Ext 36, IR hand to buttock) Pt will improve L shoulder AROM with pt able to put bra on with stiffness at shoulder and pain no greater than 2/10. STG Duration 05/05/21 Viscera Washer Goal (LTG) Initial eval: L shldr PROM ( deg's in sup: flex 137, AB 80, ER 10, IR 18) Pt will improve L shoulder PROM, with pt able to lie down without L shoulder aching pain. LTG Duration 06/22/21 Two Impairment Decreased L shoulder strength due to pain. Short Term Goal (STG) Increase L shoulder strength 1 /2 grade (Initial: Ext 4/5, ER 3/5 horiz AD 4/5) to improve pt's ability to lie down with less shoulder pain. STG Duration 05/05/21 Custodial Goal (LTG) Increase L shoulder strength to no less than 4+/5, with pt able to sleep at night at her prior level of disruption ( waking a couple times a night) but not due to L shoulder pain. LTG Duration 06/22/21 One Impairment Lacks appropriate self care HEP Short Term Goal (STG) Pt will be educated in sleeping positions to minimize pain at night. Viscera Washer Goal (LTG) Pt will be independent in a self care HEP of L neck and shoulder exercises. LTG Duration 06/22/21 Assessment Summary Assessment Pt continues to begin movements with 8/10 pain but pain quickly decreases to 2-3/ 10 after first few reps. She has improved ROM during extension and is able to begin gentle IR/ER strengthening exercises with lvl 1 TB. At end of session she states she will have to ice her shd at home today due to her schedule . Physical Therapy Plan Frequency and Duration Frequency of Treatment 2x/Week Plan of Care Start Date 03/24/21 Plan of Care End Date 06/22/21 Therapeutic Interventions Therapeutic Interventions Home Exercise Program,Joint Mobilizations,Manual Therapy, Neuromuscular Re-education, Patient/Caregiver Education, Self-Care/Home Management,Soft Tissue Mobilization,Taping, Therapeutic Activities, Therapeutic Exercises Next Visit Focus/Plan Next Note Type Treatment Note Next Visit Plan Review instructed HEP and consistency of ex's and issue handouts (ER/IR strengthening & L shoulder ER stretch with arm in ER and body in various positions). Start ARROM (RC end-range active ROM and ARROM ex's), modalities or ex to start to increase tissue flexibility prior to JMT and stretching of GHJ. Rehab for L shoulder ?adhesive capsulitis vs frozen shoulder and impingement.
--- NOTE | 2021-04-28 16:36 | PT.OTN ---
Current Diagnoses Stiffness of left shoulder, not elsewhere classified (04/28/21) Muscle weakness (generalized) (04/28/21) Strain of unspecified muscle, fascia and tendon at shoulder and upper arm level, left arm, initial encounter (04/28/21) Physical Therapy Treatment Note PT-OP-A Visit Information Start: 03/21/21 17:53 Freq: Status: Active Protocol: Document 04/28/21 12:47 LRN (Rec: 04/28/21 13:32 LRN [id number]) Out-Patient Physical Therapy Visit Information Visit Information Visit Type Treatment Note Visit Start Time 12:47 Visit Stop Time 13:27 Total Visit Minutes 40 Visit Number 8 Evaluation Information Evaluation Date 03/24/21 Precautions Precautions Controlled high cholesteral with Statin medication, 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 PT-OP-B Current Condition Start: 03/21/21 17:53 Freq: Status: Active Protocol: Document 03/24/21 13:33 LRN (Rec: 03/24/21 14:29 LRN [id number]) Current Condition History of Current Condition Onset Date 4 months ago Current Complaints Sore L lateral brachium and shoulder. Can't reach behind/ lift History of Current Condition L shoulder started to hurt after receiving COVID injection. Pain is anterior L shoulder and lateral upper arm (deltoid region). Prior to injection she was just starting to get soreness at top of the shoulder minor ache when doing exercises. Used 8# hand weights 5 days a week while in bed. She is having difficulty sleeping and trouble dressing (putting bra on). She is taking IBP & using deep blue cream to help get to sleep. In recliner supports shoulder from behind with a pillow for comfort. She has had prednisone for a few days that helped her sleep to be more regular (waking only to use bathroom and clear nose). Sometimes when lying at night her pain radiates from shoulder to the neck. Prior Treatments and Tests None Future Testing and Treatments Planned None Developmental History Developmental History Pt is R handed. Treatment Goals Patient/Caregiver Goals Pt goal is to be able to put bra on, sleep at night, and to lie down without shoulder aching. Prior Functional Status Baseline Function- ADL's Independent Baseline Function- Mobility Independent Baseline Function- Other Wakes a couple times a night to use bathroom or blow nose. Able to lie in bed without aching pain. No pain with dressing (putting bra on). Current Functional Impairments (Reported) Functional Limitations- ADL's Sleeps hourly due to needing bathroom visits, coughing, runny nose, and lately L shoulder pain. Notices more lately creaking in neck when moves head (was evident prior to worsening of L shoulder pain. Functional Limitations- Mobility/Gait No pain with gait. Functional Limitations- Recreation/ Gardens, sometimes hurts, then Hobbies has to adjust what she is doing. Functional Limitations- Other Not able to lie down due to ache pain. Difficulty putting bra on, pulling up pants. Personal Factors Other Personal Factors That May Effect None Therapy/Recovery PT-OP-C Subjective Start: 03/21/21 17:53 Freq: Status: Active Protocol: Document 04/28/21 12:47 LRN (Rec: 04/28/21 13:32 LRN [id number]) OP-PT Subjective Patient Comments Patient Comments Thinks she is getting better. Can kind-of put her arm behind the back when moving carefully. Can hold it behind her back and lift it up/down. Doesn't seem to be having as much pain. No pain after last session. Taking IBP at night because she sleeps better. PT-OP-E Functional Tests Start: 03/21/21 17:53 Freq: Status: Active Protocol: Document 03/24/21 13:33 LRN (Rec: 03/24/21 14:29 LRN [id number]) Functional Tests Apley's Scratch Test Action 1- Left Top of UT Action 1- Right Supraspinatus, almost to spine Action 2- Left C7 Action 2- Right T1 Action 3- Left Posterior Buttock Action 3- Right T7 PT-OP-H Neuro Start: 03/21/21 17:53 Freq: Status: Active Protocol: Document 03/24/21 13:33 LRN (Rec: 03/24/21 14:29 LRN [id number]) Sensation Evaluation Gross Sensation Gross Sensation WNL PT-OP-J Posture/Palpation/Skin Start: 03/21/21 17:53 Freq: Status: Active Protocol: Document 03/24/21 13:33 LRN (Rec: 03/24/21 14:29 LRN [id number]) Posture Evaluation Position Standing Head/C-Spine Posture Forward Head T-Spine Posture Increased Kyphosis Shoulder Posture (L) Rounded,(R) Rounded Scapula Posture (L) Elevated Palpation Assessment Location L neck Palpation Location UT Palpation Findings Muscle Guarding,Tenderness L shoulder Palpation Location Pec Minor, anterior & middle deltoid Palpation Findings Soft Tissue Tightness, Tenderness Palpation Details No pain subacromial region or Rotator Cuff attachments at humeral head. PT-OP-K Range of Motion Start: 03/21/21 17:53 Freq: Status: Active Protocol: Document 04/28/21 12:47 LRN (Rec: 04/28/21 13:32 LRN [id number]) Shoulder Goniometric Range of Motion Shoulder Left Passive Testing Position Supine Flexion 153 Abduction 110 External Rotation at 90 degrees 80 Abduction Internal Rotation 65 Comments AB measurement of 180 deg's is with 27 deg's flexion. Right Active Comments AAROM: flexion: 154 deg's AB: 173 deg's ER: Left Active Testing Position Sitting Flexion 145 Horizontal Abduction 145 Comments AAROM: flexion: 154 deg's AB: 158 deg's ER: PT-OP-L Special Tests Start: 03/21/21 17:53 Freq: Status: Active Protocol: Document 03/24/21 13:33 LRN (Rec: 03/24/21 16:13 LRN [id number]) Special Tests Shoulder Special Tests Overton Gualberto Impingement Test Results Positive L shoulder Elevation Impingement Test Results Positive L shoulder Anterior Draw Test Results Negative L shoulder PT-OP-M Strength Start: 03/21/21 17:53 Freq: Status: Active Protocol: Document 03/24/21 13:33 LRN (Rec: 03/24/21 14:29 LRN [id number]) Cervical Spine Strength Cervical Spine Manual Muscle Testing Comments Generally 5/5 Shoulder Strength Shoulder Manual Muscle Testing Right Abduction (C5) 4 Good Comments Strength is 5/5 except as indicated above. Left Extension 4 Good Adduction 5 Normal External Rotation 3 Fair Horizontal Adduction 4 Good Comments Strength is 5/5 with break testing except as indicated above. Pain limited strength in areas less than 5/5 Elbow/Forearm Strength Elbow and Forearm Manual Muscle Testing Right Flexion (C6) 5 Normal Extension (C7) 5 Normal Left Flexion (C6) 5 Normal Extension (C7) 5 Normal PT-OP-Q Treatments Start: 03/21/21 17:53 Freq: Status: Active Protocol: Document 04/28/21 12:47 LRN (Rec: 04/28/21 13:32 LRN [id number]) Cardio Equipment Upper Body Ergometer (UBE) Duration (Minutes) 7 RPM 70 Seat Position 10 Height 2.0 Other fwd/bkwd Therapeutic Exercises Supine Exercises PROM L shoulder Supine Exercise Name AROM ER, IR, Flex, AB Comments PROM taken Sitting Exercises AROM Sitting Exercise Name L shoulder AROM flex, AB Side left Comments AROM taken Standing Exercises Pendulum Standing Exercise Name CW, CCW Side left Reps/Minutes 2x30 sec Comments cues to move body vs actively moving arm Other Exercises Gigi Other Exercise Name L shoulder flex, AB & ER Side left Equipment Used Overhead Gigi, strap for L shoulder Reps/Minutes 18' Comments Extra time to determine proper assist with stretches Manual Therapy Treatment Joint Mobilizations L GHJ Joint L GHJ Direction PA, AP, Inferior Grade II Body Position Supine Reps/Duration 8' Manual Techniques AAROM/contract relax stretch Type L shoulder ER, IR, flex & AB Body Location L shoulder Body Position Supine Reps/Duration 12' PT-OP-R Modalities Start: 03/21/21 17:53 Freq: Status: Active Protocol: Document 04/18/21 13:38 MA (Rec: 04/18/21 14:21 MA [id number]) Hot Pack/Cold Pack Treatment Ice Pack Location L bicep Patient Position Supine Treatment Duration (minutes) 10 Patient Tolerance Good PT-OP-T Assessment and Plan Start: 03/21/21 17:53 Freq: Status: Active Protocol: Document 04/28/21 12:47 LRN (Rec: 04/28/21 13:32 LRN [id number]) Physical Therapy Assessment Goals Three Impairment Decr'd L shldr ROM (deg's in sit: flex 130, AB 65, Ext 36) Short Term Goal (STG) Initial eval: L shldr AROM ( deg's in sit: flex 130, AB 65, Ext 36, IR hand to buttock) Pt will improve L shoulder AROM with pt able to put bra on with stiffness at shoulder and pain no greater than 2/10. (04/28/21: Improved L shoulder AROM in sitting: flexion 145 deg's, AB 158 deg's) STG Duration 05/05/21 (04/28/21: Improving) Long-Term Goal (LTG) Initial eval: L shldr PROM ( deg's in sup: flex 137, AB 80, ER 10, IR 18) Pt will improve L shoulder PROM, with pt able to lie down without L shoulder aching pain. (04/28/21: Improved L shoulder PROM sup: flex 153 deg's, AB 110 deg's, ER 80 deg's, IR 65 deg's) LTG Duration 06/22/21 (04/28/21: Improved) Two Impairment Decreased L shoulder strength due to pain. Short Term Goal (STG) Increase L shoulder strength 1 /2 grade (Initial: Ext 4/5, ER 3/5 horiz AD 4/5) to improve pt's ability to lie down with less shoulder pain. STG Duration 05/05/21 Pen Ruler Operator Goal (LTG) Increase L shoulder strength to no less than 4+/5, with pt able to sleep at night at her prior level of disruption ( waking a couple times a night) but not due to L shoulder pain. LTG Duration 06/22/21 One Impairment Lacks appropriate self care HEP Short Term Goal (STG) Pt will be educated in sleeping positions to minimize pain at night. Long-Term Goal (LTG) Pt will be independent in a self care HEP of L neck and shoulder exercises. (04/28/21: Pt has shoulder ROM ex's) LTG Duration 06/22/21 Progress Towards Goals Progress Comments Significant improvement in PROM & improved AROM of L shoulder. Assessment Summary Assessment Pt L shoulder active & passive ROM has greatly improved. She is most restricted with IR > ER today. She relaxes with stretching and shows good improvement with gentle contract/relax stretching. Pt is ready to begin strengthening to improve active ROM and function. Consider ending of US. Physical Therapy Plan Frequency and Duration Frequency of Treatment 2x/Week Plan of Care Start Date 03/24/21 Plan of Care End Date 06/22/21 Next Visit Focus/Plan Next Note Type Treatment Note Next Visit Plan Assess active shoulder ext & behind back reach (STG #3) and ability to lie without pain ( LTG #3). Review instructed HEP and consistency of ex's and issue handouts (ER/IR strengthening & L shoulder ER stretch with arm in ER and body in various positions). Discuss modifications to decrease pain with sleeping ( STG #1). Add to HEP: neck stretches. Start L shoulder strengthening or modalities to start to increase tissue flexibility prior to JMT and stretching of GHJ. Rehab for L shoulder ?adhesive capsulitis vs frozen shoulder and impingement.
--- NOTE | 2021-05-01 12:10 | PT.OTN ---
Current Diagnoses Stiffness of left shoulder, not elsewhere classified (05/01/21) Muscle weakness (generalized) (05/01/21) Strain of unspecified muscle, fascia and tendon at shoulder and upper arm level, left arm, initial encounter (05/01/21) Physical Therapy Treatment Note PT-OP-A Visit Information Start: 03/21/21 17:53 Freq: Status: Active Protocol: Document 05/01/21 11:18 LRN (Rec: 05/01/21 12:08 LRN [id number]) Out-Patient Physical Therapy Visit Information Visit Information Visit Type Treatment Note Visit Start Time 11:19 Visit Stop Time 12:03 Total Visit Minutes 44 Visit Number 9 Evaluation Information Evaluation Date 03/24/21 Precautions Precautions Controlled high cholesteral with Statin medication, 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 PT-OP-B Current Condition Start: 03/21/21 17:53 Freq: Status: Active Protocol: Document 03/24/21 13:33 LRN (Rec: 03/24/21 14:29 LRN [id number]) Current Condition History of Current Condition Onset Date 4 months ago Current Complaints Sore L lateral brachium and shoulder. Can't reach behind/ lift History of Current Condition L shoulder started to hurt after receiving COVID injection. Pain is anterior L shoulder and lateral upper arm (deltoid region). Prior to injection she was just starting to get soreness at top of the shoulder minor ache when doing exercises. Used 8# hand weights 5 days a week while in bed. She is having difficulty sleeping and trouble dressing (putting bra on). She is taking IBP & using deep blue cream to help get to sleep. In recliner supports shoulder from behind with a pillow for comfort. She has had prednisone for a few days that helped her sleep to be more regular (waking only to use bathroom and clear nose). Sometimes when lying at night her pain radiates from shoulder to the neck. Prior Treatments and Tests None Future Testing and Treatments Planned None Developmental History Developmental History Pt is R handed. Treatment Goals Patient/Caregiver Goals Pt goal is to be able to put bra on, sleep at night, and to lie down without shoulder aching. Prior Functional Status Baseline Function- ADL's Independent Baseline Function- Mobility Independent Baseline Function- Other Wakes a couple times a night to use bathroom or blow nose. Able to lie in bed without aching pain. No pain with dressing (putting bra on). Current Functional Impairments (Reported) Functional Limitations- ADL's Sleeps hourly due to needing bathroom visits, coughing, runny nose, and lately L shoulder pain. Notices more lately creaking in neck when moves head (was evident prior to worsening of L shoulder pain. Functional Limitations- Mobility/Gait No pain with gait. Functional Limitations- Recreation/ Gardens, sometimes hurts, then Hobbies has to adjust what she is doing. Functional Limitations- Other Not able to lie down due to ache pain. Difficulty putting bra on, pulling up pants. Personal Factors Other Personal Factors That May Effect None Therapy/Recovery PT-OP-C Subjective Start: 03/21/21 17:53 Freq: Status: Active Protocol: Document 05/01/21 11:18 LRN (Rec: 05/01/21 12:08 LRN [id number]) OP-PT Subjective Patient Comments Patient Comments Last night pain wasn't too bad and didn't take IBP, but after last session did gardening and hurt during the night. PT-OP-E Functional Tests Start: 03/21/21 17:53 Freq: Status: Active Protocol: Document 03/24/21 13:33 LRN (Rec: 03/24/21 14:29 LRN [id number]) Functional Tests Apley's Scratch Test Action 1- Left Top of UT Action 1- Right Supraspinatus, almost to spine Action 2- Left C7 Action 2- Right T1 Action 3- Left Posterior Buttock Action 3- Right T7 PT-OP-H Neuro Start: 03/21/21 17:53 Freq: Status: Active Protocol: Document 03/24/21 13:33 LRN (Rec: 03/24/21 14:29 LRN [id number]) Sensation Evaluation Gross Sensation Gross Sensation WNL PT-OP-J Posture/Palpation/Skin Start: 03/21/21 17:53 Freq: Status: Active Protocol: Document 03/24/21 13:33 LRN (Rec: 03/24/21 14:29 LRN [id number]) Posture Evaluation Position Standing Head/C-Spine Posture Forward Head T-Spine Posture Increased Kyphosis Shoulder Posture (L) Rounded,(R) Rounded Scapula Posture (L) Elevated Palpation Assessment Location L neck Palpation Location UT Palpation Findings Muscle Guarding,Tenderness L shoulder Palpation Location Pec Minor, anterior & middle deltoid Palpation Findings Soft Tissue Tightness, Tenderness Palpation Details No pain subacromial region or Rotator Cuff attachments at humeral head. PT-OP-K Range of Motion Start: 03/21/21 17:53 Freq: Status: Active Protocol: Document 05/01/21 11:18 LRN (Rec: 05/01/21 12:08 LRN [id number]) Shoulder Goniometric Range of Motion Shoulder Left Passive Testing Position Supine Internal Rotation 70 PT-OP-L Special Tests Start: 03/21/21 17:53 Freq: Status: Active Protocol: Document 03/24/21 13:33 LRN (Rec: 03/24/21 16:13 LRN [id number]) Special Tests Shoulder Special Tests Overton Gualberto Impingement Test Results Positive L shoulder Elevation Impingement Test Results Positive L shoulder Anterior Draw Test Results Negative L shoulder PT-OP-M Strength Start: 03/21/21 17:53 Freq: Status: Active Protocol: Document 03/24/21 13:33 LRN (Rec: 03/24/21 14:29 LRN [id number]) Cervical Spine Strength Cervical Spine Manual Muscle Testing Comments Generally 5/5 Shoulder Strength Shoulder Manual Muscle Testing Right Abduction (C5) 4 Good Comments Strength is 5/5 except as indicated above. Left Extension 4 Good Adduction 5 Normal External Rotation 3 Fair Horizontal Adduction 4 Good Comments Strength is 5/5 with break testing except as indicated above. Pain limited strength in areas less than 5/5 Elbow/Forearm Strength Elbow and Forearm Manual Muscle Testing Right Flexion (C6) 5 Normal Extension (C7) 5 Normal Left Flexion (C6) 5 Normal Extension (C7) 5 Normal PT-OP-Q Treatments Start: 03/21/21 17:53 Freq: Status: Active Protocol: Document 05/01/21 11:18 LRN (Rec: 05/01/21 12:08 LRN [id number]) Cardio Equipment Upper Body Ergometer (UBE) Duration (Minutes) 8 RPM 70 Seat Position 10 Height 2.5 Other fwd/bkwd Therapeutic Exercises Supine Exercises IR Supine Exercise Name IR strengthening (90, 80, 70 deg's AB) Side left Equipment Used Lev 1 TB Reps/Minutes 8' ER Supine Exercise Name ER strengthening (90 deg's AB) Side left Equipment Used Lev 1 TB Reps/Minutes 3' Sidelying Exercises L shoulder IR Side left Equipment Used 1# Reps/Minutes 3' L shoulder ER Side left Equipment Used 1# Reps/Minutes 3' Standing Exercises Pendulum Standing Exercise Name CW, CCW Side left Reps/Minutes 2x30 sec Comments cues to move body vs actively moving arm Other Exercises Gigi Other Exercise Name L shoulder flex, AB, IR Side left Equipment Used Overhead Gigi, strap for L shoulder Reps/Minutes 16' Comments Extra time to determine proper assist with stretches PT-OP-R Modalities Start: 03/21/21 17:53 Freq: Status: Active Protocol: Document 04/18/21 13:38 MA (Rec: 04/18/21 14:21 MA [id number]) Hot Pack/Cold Pack Treatment Ice Pack Location L bicep Patient Position Supine Treatment Duration (minutes) 10 Patient Tolerance Good PT-OP-T Assessment and Plan Start: 03/21/21 17:53 Freq: Status: Active Protocol: Document 05/01/21 11:18 LRN (Rec: 05/01/21 12:08 LRN [id number]) Physical Therapy Assessment Goals Three Impairment Decr'd L shldr ROM (deg's in sit: flex 130, AB 65, Ext 36) Short Term Goal (STG) Initial eval: L shldr AROM ( deg's in sit: flex 130, AB 65, Ext 36, IR hand to buttock) Pt will improve L shoulder AROM with pt able to put bra on with stiffness at shoulder and pain no greater than 2/10. (04/28/21: Improved L shoulder AROM in sitting: flexion 145 deg's, AB 158 deg's) STG Duration 05/05/21 (04/28/21: Improving) Custodial Goal (LTG) Initial eval: L shldr PROM ( deg's in sup: flex 137, AB 80, ER 10, IR 18) Pt will improve L shoulder PROM, with pt able to lie down without L shoulder aching pain. (04/28/21: Improved L shoulder PROM sup: flex 153 deg's, AB 110 deg's, ER 80 deg's, IR 65 deg's) LTG Duration 06/22/21 (04/28/21: Improved) Two Impairment Decreased L shoulder strength due to pain. Short Term Goal (STG) Increase L shoulder strength 1 /2 grade (Initial: Ext 4/5, ER 3/5 horiz AD 4/5) to improve pt's ability to lie down with less shoulder pain. STG Duration 05/05/21 Custodial Goal (LTG) Increase L shoulder strength to no less than 4+/5, with pt able to sleep at night at her prior level of disruption ( waking a couple times a night) but not due to L shoulder pain. LTG Duration 06/22/21 One Impairment Lacks appropriate self care HEP Short Term Goal (STG) Pt will be educated in sleeping positions to minimize pain at night. Custodial Goal (LTG) Pt will be independent in a self care HEP of L neck and shoulder exercises. (04/28/21: Pt has shoulder ROM ex's) LTG Duration 06/22/21 Assessment Summary Assessment Focused today on L shoulder IR ROM improvement and tolerance to strengthening exercise. Pt will be appropriate for HEP of strengthening next visit. Pt shows improved L shoulder IR PROM from 70 to 80 deg's IR in supine. She has less pain with strengthening; therefore improved joint stability helps to decrease shoulder pain. Physical Therapy Plan Frequency and Duration Frequency of Treatment 2x/Week Plan of Care Start Date 03/24/21 Plan of Care End Date 06/22/21 Next Visit Focus/Plan Next Note Type Progress Note Next Visit Plan Assess need for L GHJ JMT. Assess active shoulder ext & behind back reach (STG #3) and ability to lie without pain ( LTG #3). Review instructed HEP and consistency of ex's and issue handouts (ER/IR strengthening & L shoulder ER stretch with arm in ER and body in various positions). Discuss modifications to decrease pain with sleeping ( STG #1). Add to HEP: neck stretches. Start L shoulder strengthening or modalities to start to increase tissue flexibility prior to JMT and stretching of GHJ. Rehab for L shoulder ?adhesive capsulitis vs frozen shoulder and impingement.
--- NOTE | 2021-05-06 16:56 | PT.OTN ---
Current Diagnoses Stiffness of left shoulder, not elsewhere classified (05/06/21) Muscle weakness (generalized) (05/06/21) Strain of unspecified muscle, fascia and tendon at shoulder and upper arm level, left arm, initial encounter (05/06/21) Physical Therapy Treatment Note PT-OP-A Visit Information Start: 03/21/21 17:53 Freq: Status: Active Protocol: Document 05/06/21 12:48 LRN (Rec: 05/06/21 13:31 LRN [id number]) Out-Patient Physical Therapy Visit Information Visit Information Visit Type Progress Note Visit Start Time 12:48 Visit Stop Time 13:30 Total Visit Minutes 42 Visit Number 10 Evaluation Information Evaluation Date 03/24/21 Precautions Precautions Controlled high cholesteral with Statin medication, 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 PT-OP-B Current Condition Start: 03/21/21 17:53 Freq: Status: Active Protocol: Document 03/24/21 13:33 LRN (Rec: 03/24/21 14:29 LRN [id number]) Current Condition History of Current Condition Onset Date 4 months ago Current Complaints Sore L lateral brachium and shoulder. Can't reach behind/ lift History of Current Condition L shoulder started to hurt after receiving COVID injection. Pain is anterior L shoulder and lateral upper arm (deltoid region). Prior to injection she was just starting to get soreness at top of the shoulder minor ache when doing exercises. Used 8# hand weights 5 days a week while in bed. She is having difficulty sleeping and trouble dressing (putting bra on). She is taking IBP & using deep blue cream to help get to sleep. In recliner supports shoulder from behind with a pillow for comfort. She has had prednisone for a few days that helped her sleep to be more regular (waking only to use bathroom and clear nose). Sometimes when lying at night her pain radiates from shoulder to the neck. Prior Treatments and Tests None Future Testing and Treatments Planned None Developmental History Developmental History Pt is R handed. Treatment Goals Patient/Caregiver Goals Pt goal is to be able to put bra on, sleep at night, and to lie down without shoulder aching. Prior Functional Status Baseline Function- ADL's Independent Baseline Function- Mobility Independent Baseline Function- Other Wakes a couple times a night to use bathroom or blow nose. Able to lie in bed without aching pain. No pain with dressing (putting bra on). Current Functional Impairments (Reported) Functional Limitations- ADL's Sleeps hourly due to needing bathroom visits, coughing, runny nose, and lately L shoulder pain. Notices more lately creaking in neck when moves head (was evident prior to worsening of L shoulder pain. Functional Limitations- Mobility/Gait No pain with gait. Functional Limitations- Recreation/ Gardens, sometimes hurts, then Hobbies has to adjust what she is doing. Functional Limitations- Other Not able to lie down due to ache pain. Difficulty putting bra on, pulling up pants. Personal Factors Other Personal Factors That May Effect None Therapy/Recovery PT-OP-C Subjective Start: 03/21/21 17:53 Freq: Status: Active Protocol: Document 05/06/21 12:48 LRN (Rec: 05/06/21 13:31 LRN [id number]) OP-PT Subjective Patient Comments Patient Comments Did fine after last treatment. Thinks easier to stretch. Still hurts to put hand behind the back but things has more motion. Doesn't hurt as much at night, doesn't wake her up at night for past 4 nights and no use of IBP. PT-OP-E Functional Tests Start: 03/21/21 17:53 Freq: Status: Active Protocol: Document 05/06/21 12:48 LRN (Rec: 05/06/21 13:31 LRN [id number]) Functional Tests Apley's Scratch Test Action 1- Left Top of shoulder, tightness at L shoulder Action 1- Right Top of shoulder Action 2- Left T2 Action 2- Right T3 Action 3- Left L3 Action 3- Right T12 PT-OP-H Neuro Start: 03/21/21 17:53 Freq: Status: Active Protocol: Document 03/24/21 13:33 LRN (Rec: 03/24/21 14:29 LRN [id number]) Sensation Evaluation Gross Sensation Gross Sensation WNL PT-OP-J Posture/Palpation/Skin Start: 03/21/21 17:53 Freq: Status: Active Protocol: Document 03/24/21 13:33 LRN (Rec: 03/24/21 14:29 LRN [id number]) Posture Evaluation Position Standing Head/C-Spine Posture Forward Head T-Spine Posture Increased Kyphosis Shoulder Posture (L) Rounded,(R) Rounded Scapula Posture (L) Elevated Palpation Assessment Location L neck Palpation Location [place] Palpation Findings Muscle Guarding,Tenderness L shoulder Palpation Location Pec Minor, anterior & middle deltoid Palpation Findings Soft Tissue Tightness, Tenderness Palpation Details No pain subacromial region or Rotator Cuff attachments at humeral head. PT-OP-K Range of Motion Start: 03/21/21 17:53 Freq: Status: Active Protocol: Document 05/06/21 12:48 LRN (Rec: 05/06/21 13:31 LRN [id number]) Shoulder Goniometric Range of Motion Shoulder Right Passive Shoulder ROM WFL Yes Testing Position Supine Flexion 170 Abduction 180 External Rotation at 90 degrees 80 Abduction Internal Rotation 75 Left Passive Shoulder ROM WFL No Testing Position Supine Flexion 156 Abduction 140 External Rotation at 90 degrees 54 Abduction Internal Rotation 60 Comments AB is 120 deg's without pain. Pain location is at 120 deg's AB. AB in scapular plane is 180 deg's without pain. Right Active Shoulder ROM WFL Yes Testing Position Sitting Flexion 150 Extension 45 Abduction 168 Internal Rotation Behind Back (text) T12 Left Active Shoulder ROM WFL No Testing Position Sitting Flexion 150 Extension 45 Abduction 158 Internal Rotation Behind Back (text) L3 PT-OP-L Special Tests Start: 03/21/21 17:53 Freq: Status: Active Protocol: Document 03/24/21 13:33 LRN (Rec: 03/24/21 16:13 LRN [id number]) Special Tests Shoulder Special Tests Overton Gualberto Impingement Test Results Positive L shoulder Elevation Impingement Test Results Positive L shoulder Anterior Draw Test Results Negative L shoulder PT-OP-M Strength Start: 03/21/21 17:53 Freq: Status: Active Protocol: Document 03/24/21 13:33 LRN (Rec: 03/24/21 14:29 LRN [id number]) Cervical Spine Strength Cervical Spine Manual Muscle Testing Comments Generally 5/5 Shoulder Strength Shoulder Manual Muscle Testing Right Abduction (C5) 4 Good Comments Strength is 5/5 except as indicated above. Left Extension 4 Good Adduction 5 Normal External Rotation 3 Fair Horizontal Adduction 4 Good Comments Strength is 5/5 with break testing except as indicated above. Pain limited strength in areas less than 5/5 Elbow/Forearm Strength Elbow and Forearm Manual Muscle Testing Right Flexion (C6) 5 Normal Extension (C7) 5 Normal Left Flexion (C6) 5 Normal Extension (C7) 5 Normal PT-OP-Q Treatments Start: 03/21/21 17:53 Freq: Status: Active Protocol: Document 05/06/21 12:48 LRN (Rec: 05/06/21 13:31 LRN [id number]) Cardio Equipment Upper Body Ergometer (UBE) Duration (Minutes) 10 RPM 65 Seat Position 10 Height 3 Other fwd/bkwd Therapeutic Exercises Other Exercises Gigi Other Exercise Name L shoulder flex, AB, IR Side left Equipment Used Overhead Gigi, strap for L shoulder Reps/Minutes 9' Comments Pt needed phys assist for proper stretch positioning Self-Care/Home Management Treatment Education Patient Education Posture Other Education Educated pt in best sleeping positions to minimize pain at L shoulder. PT-OP-R Modalities Start: 03/21/21 17:53 Freq: Status: Active Protocol: Document 04/18/21 13:38 MA (Rec: 04/18/21 14:21 MA [id number]) Hot Pack/Cold Pack Treatment Ice Pack Location L bicep Patient Position Supine Treatment Duration (minutes) 10 Patient Tolerance Good PT-OP-T Assessment and Plan Start: 03/21/21 17:53 Freq: Status: Active Protocol: Document 05/06/21 12:48 LRN (Rec: 05/06/21 13:31 LRN [id number]) Physical Therapy Assessment Rehab Potential Rehabilitation Potential Good Evaluation Complexity Number of Personal Factors/Comorbidities 0 Number of Body Systems Impaired 4 or More Clinical Presentation at Evaluation Stable Impairments Impairments Pain,Posture,ROM,Soft Tissue Mobility,Strength Goals Three Impairment Decr'd L shldr ROM (deg's in sit: flex 130, AB 65, Ext 36) Short Term Goal (STG) Initial eval: L shldr AROM ( deg's in sit: flex 130, AB 65, Ext 36, IR - hand to buttock) Pt will improve L shoulder AROM with pt able to put bra on with stiffness at shoulder and pain no greater than 2/10. (05/06/21: can reach bra with pain but too weak to hook bra closed) (05/06/21: Improved L shoulder AROM (in deg's) in sitting: flexion 150, AB 158, Ext 45, IR - L3 ) STG Duration 05/26/21 (05/06/21: Improving) Penitentiary Goal (LTG) Initial eval: L shldr PROM ( deg's in sup: flex 137, AB 80, ER 10, IR 18) Pt will improve L shoulder PROM, with pt able to lie down without L shoulder aching pain. (05/06/21: Pt able to lie on back without L shoulder aching ). 05/06/21: Improved L shoulder PROM sup: flex 156 deg's, AB 140 deg's, ER 54 deg's, IR 60 deg's) LTG Duration 06/27/21 (05/06/21: Pain goal met, PROM progressed overall) Two Impairment Decreased L shoulder strength due to pain. Short Term Goal (STG) Increase L shoulder strength 1 /2 grade (Initial: Ext 4/5, ER 3/5 horiz AD 4/5) to improve pt's ability to lie down with less shoulder pain. STG Duration 05/26/21 (05/06/21: Pain goal met) Penitentiary Goal (LTG) Increase L shoulder strength to no less than 4+/5, with pt able to sleep at night at her prior level of disruption ( waking a couple times a night) but not due to L shoulder pain. LTG Duration 06/27/21 One Impairment Lacks appropriate self care HEP Short Term Goal (STG) Pt will be educated in sleeping positions to minimize pain at night. (05/06/21: Discussed sleeping position of sidelie hugging pillow) STG Duration 05/09/21 Penitentiary Goal (LTG) Pt will be independent in a self care HEP of L neck and shoulder exercises. (04/28/21: Pt has shoulder ROM ex's) LTG Duration 06/27/21 Progress Towards Goals Progress Comments Improved ability to lie at night or on back without L shoulder ache/pain. Assessment Summary Assessment L shoulder mobility of reaching behind the head is decreased by one vertebra space. Reaching behind the back has improved from reaching the lateral buttock to L3 Spinous process. Reaching over the opposite shoulder is symmetrical. L shoulder AROM has improved in all areas and PROM improvement is variable, but overall improved. The pt will benefit from continued skilled physical therpay for rehabilitation to focus on strengthening the last 4-6 weeks, but pt will also be progressing the pt towards normal L shoulder ROM. Physical Therapy Plan Frequency and Duration Frequency of Treatment 2x/Week Plan of Care Start Date 03/24/21 Plan of Care End Date 06/27/21 Therapeutic Interventions Therapeutic Interventions Home Exercise Program,Joint Mobilizations,Manual Therapy, Neuromuscular Re-education, Patient/Caregiver Education, Self-Care/Home Management,Soft Tissue Mobilization,Taping, Therapeutic Activities, Therapeutic Exercises Next Visit Focus/Plan Next Note Type Treatment Note Next Visit Plan Assess need for L GHJ JMT. Assess active shoulder ext & behind back reach (STG #3) and ability to lie without pain ( LTG #3). Review instructed HEP and consistency of ex's and issue handouts (ER/IR strengthening & L shoulder ER stretch with arm in ER and body in various positions). Discuss modifications to decrease pain with sleeping ( STG #1). Add to HEP: neck stretches. Start L shoulder strengthening or modalities to start to increase tissue flexibility prior to JMT and stretching of GHJ. Rehab for L shoulder ?adhesive capsulitis vs frozen shoulder and impingement.
--- NOTE | 2021-05-06 16:57 | PT.OPPOC ---
Addendum entered and electronically signed by Tawana Vazquez PT 05/06/21 16:57: Sending to referring physician Original Note: Physical, Occupational & Speech Therapy At [facility] Current Diagnoses Stiffness of left shoulder, not elsewhere classified (05/06/21) Muscle weakness (generalized) (05/06/21) Strain of unspecified muscle, fascia and tendon at shoulder and upper arm level, left arm, initial encounter (05/06/21) Visit Care Team Role Provider Type Florence Wolf DO Attending Provider Physician Primary Care Provider Referring Provider Specialty: [facility] Address: [address] [place] [address], [place], [address] Email: [email or web address] Plan Of Care PT-OP-T Assessment and Plan Start: 03/21/21 17:53 Freq: Status: Active Protocol: Document 05/06/21 12:48 LRN (Rec: 05/06/21 13:31 LRN [id number]) Physical Therapy Assessment Rehab Potential Rehabilitation Potential Good Evaluation Complexity Number of Personal Factors/Comorbidities 0 Number of Body Systems Impaired 4 or More Clinical Presentation at Evaluation Stable Impairments Impairments Pain,Posture,ROM,Soft Tissue Mobility,Strength Goals Three Impairment Decr'd L shldr ROM (deg's in sit: flex 130, AB 65, Ext 36) Short Term Goal (STG) Initial eval: L shldr AROM ( deg's in sit: flex 130, AB 65, Ext 36, IR - hand to buttock) Pt will improve L shoulder AROM with pt able to put bra on with stiffness at shoulder and pain no greater than 2/10. (05/06/21: can reach bra with pain but too weak to hook bra closed) (05/06/21: Improved L shoulder AROM (in deg's) in sitting: flexion 150, AB 158, Ext 45, IR - L3 ) STG Duration 05/26/21 (05/06/21: Improving) Nursing Home Goal (LTG) Initial eval: L shldr PROM ( deg's in sup: flex 137, AB 80, ER 10, IR 18) Pt will improve L shoulder PROM, with pt able to lie down without L shoulder aching pain. (05/06/21: Pt able to lie on back without L shoulder aching ). 05/06/21: Improved L shoulder PROM sup: flex 156 deg's, AB 140 deg's, ER 54 deg's, IR 60 deg's) LTG Duration 06/27/21 (05/06/21: Pain goal met, PROM progressed overall) Two Impairment Decreased L shoulder strength due to pain. Short Term Goal (STG) Increase L shoulder strength 1 /2 grade (Initial: Ext 4/5, ER 3/5 horiz AD 4/5) to improve pt's ability to lie down with less shoulder pain. STG Duration 05/26/21 (05/06/21: Pain goal met) Grinding And Spraying Supervisor Goal (LTG) Increase L shoulder strength to no less than 4+/5, with pt able to sleep at night at her prior level of disruption ( waking a couple times a night) but not due to L shoulder pain. LTG Duration 06/27/21 One Impairment Lacks appropriate self care HEP Short Term Goal (STG) Pt will be educated in sleeping positions to minimize pain at night. (05/06/21: Discussed sleeping position of sidelie hugging pillow) STG Duration 05/09/21 Grinding And Spraying Supervisor Goal (LTG) Pt will be independent in a self care HEP of L neck and shoulder exercises. (04/28/21: Pt has shoulder ROM ex's) LTG Duration 06/27/21 Progress Towards Goals Progress Comments Improved ability to lie at night or on back without L shoulder ache/pain. Assessment Summary Assessment L shoulder mobility of reaching behind the head is decreased by one vertebra space. Reaching behind the back has improved from reaching the lateral buttock to L3 Spinous process. Reaching over the opposite shoulder is symmetrical. L shoulder AROM has improved in all areas and PROM improvement is variable, but overall improved. The pt will benefit from continued skilled physical therpay for rehabilitation to focus on strengthening the last 4-6 weeks, but pt will also be progressing the pt towards normal L shoulder ROM. Physical Therapy Plan Frequency and Duration Frequency of Treatment 2x/Week Plan of Care Start Date 03/24/21 Plan of Care End Date 06/27/21 Therapeutic Interventions Therapeutic Interventions Home Exercise Program,Joint Mobilizations,Manual Therapy, Neuromuscular Re-education, Patient/Caregiver Education, Self-Care/Home Management,Soft Tissue Mobilization,Taping, Therapeutic Activities, Therapeutic Exercises Next Visit Focus/Plan Next Note Type Treatment Note Next Visit Plan Assess need for L GHJ JMT. Assess active shoulder ext & behind back reach (STG #3) and ability to lie without pain ( LTG #3). Review instructed HEP and consistency of ex's and issue handouts (ER/IR strengthening & L shoulder ER stretch with arm in ER and body in various positions). Discuss modifications to decrease pain with sleeping ( STG #1). Add to HEP: neck stretches. Start L shoulder strengthening or modalities to start to increase tissue flexibility prior to JMT and stretching of GHJ. Rehab for L shoulder ?adhesive capsulitis vs frozen shoulder and impingement. Plan of Care Dates Plan of Care Start Date 03/24/21 Plan of Care End Date 06/27/21 Electronically Signed by: Tawana Vazquez, PT 05/06/21 [id number] Please Sign and Return: I have reviewed this Plan of Care and certify that the skilled therapy services above are required to meet the patient?s needs. Physician Signature Date Printed Name and Credentials Clinical Instructor Signature Printed Name and Credentials
--- NOTE | 2021-05-08 15:10 | PT.OTN ---
Current Diagnoses Stiffness of left shoulder, not elsewhere classified (05/08/21) Muscle weakness (generalized) (05/08/21) Strain of unspecified muscle, fascia and tendon at shoulder and upper arm level, left arm, initial encounter (05/08/21) Physical Therapy Treatment Note PT-OP-A Visit Information Start: 03/21/21 17:53 Freq: Status: Active Protocol: Document 05/08/21 13:33 LRN (Rec: 05/08/21 14:20 LRN [id number]) Out-Patient Physical Therapy Visit Information Visit Information Visit Type Treatment Note Visit Start Time 13:33 Visit Stop Time 14:16 Total Visit Minutes 43 Visit Number 11 Evaluation Information Evaluation Date 03/24/21 Precautions Precautions Controlled high cholesteral with Statin medication, 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 PT-OP-B Current Condition Start: 03/21/21 17:53 Freq: Status: Active Protocol: Document 03/24/21 13:33 LRN (Rec: 03/24/21 14:29 LRN [id number]) Current Condition History of Current Condition Onset Date 4 months ago Current Complaints Sore L lateral brachium and shoulder. Can't reach behind/ lift History of Current Condition L shoulder started to hurt after receiving COVID injection. Pain is anterior L shoulder and lateral upper arm (deltoid region). Prior to injection she was just starting to get soreness at top of the shoulder minor ache when doing exercises. Used 8# hand weights 5 days a week while in bed. She is having difficulty sleeping and trouble dressing (putting bra on). She is taking IBP & using deep blue cream to help get to sleep. In recliner supports shoulder from behind with a pillow for comfort. She has had prednisone for a few days that helped her sleep to be more regular (waking only to use bathroom and clear nose). Sometimes when lying at night her pain radiates from shoulder to the neck. Prior Treatments and Tests None Future Testing and Treatments Planned None Developmental History Developmental History Pt is R handed. Treatment Goals Patient/Caregiver Goals Pt goal is to be able to put bra on, sleep at night, and to lie down without shoulder aching. Prior Functional Status Baseline Function- ADL's Independent Baseline Function- Mobility Independent Baseline Function- Other Wakes a couple times a night to use bathroom or blow nose. Able to lie in bed without aching pain. No pain with dressing (putting bra on). Current Functional Impairments (Reported) Functional Limitations- ADL's Sleeps hourly due to needing bathroom visits, coughing, runny nose, and lately L shoulder pain. Notices more lately creaking in neck when moves head (was evident prior to worsening of L shoulder pain. Functional Limitations- Mobility/Gait No pain with gait. Functional Limitations- Recreation/ Gardens, sometimes hurts, then Hobbies has to adjust what she is doing. Functional Limitations- Other Not able to lie down due to ache pain. Difficulty putting bra on, pulling up pants. Personal Factors Other Personal Factors That May Effect None Therapy/Recovery PT-OP-C Subjective Start: 03/21/21 17:53 Freq: Status: Active Protocol: Document 05/08/21 13:33 LRN (Rec: 05/08/21 14:20 LRN [id number]) OP-PT Subjective Patient Comments Patient Comments States she hurt in L shoulder after last session all night long, but has felt ok since. States she can lie supine without pain, hasn't tried lying on L shoulder yet. States she can reach behind for bra in certain ways, but otherways, not able. PT-OP-E Functional Tests Start: 03/21/21 17:53 Freq: Status: Active Protocol: Document 05/06/21 12:48 LRN (Rec: 05/06/21 13:31 LRN [id number]) Functional Tests Apley's Scratch Test Action 1- Left Top of shoulder, tightness at L shoulder Action 1- Right Top of shoulder Action 2- Left T2 Action 2- Right T3 Action 3- Left L3 Action 3- Right T12 PT-OP-H Neuro Start: 03/21/21 17:53 Freq: Status: Active Protocol: Document 03/24/21 13:33 LRN (Rec: 03/24/21 14:29 LRN [id number]) Sensation Evaluation Gross Sensation Gross Sensation WNL PT-OP-J Posture/Palpation/Skin Start: 03/21/21 17:53 Freq: Status: Active Protocol: Document 03/24/21 13:33 LRN (Rec: 03/24/21 14:29 LRN [id number]) Posture Evaluation Position Standing Head/C-Spine Posture Forward Head T-Spine Posture Increased Kyphosis Shoulder Posture (L) Rounded,(R) Rounded Scapula Posture (L) Elevated Palpation Assessment Location L neck Palpation Location [place] Palpation Findings Muscle Guarding,Tenderness L shoulder Palpation Location Pec Minor, anterior & middle deltoid Palpation Findings Soft Tissue Tightness, Tenderness Palpation Details No pain subacromial region or Rotator Cuff attachments at humeral head. PT-OP-K Range of Motion Start: 03/21/21 17:53 Freq: Status: Active Protocol: Document 05/06/21 12:48 LRN (Rec: 05/06/21 13:31 LRN [id number]) Shoulder Goniometric Range of Motion Shoulder Right Passive Shoulder ROM WFL Yes Testing Position Supine Flexion 170 Abduction 180 External Rotation at 90 degrees 80 Abduction Internal Rotation 75 Left Passive Shoulder ROM WFL No Testing Position Supine Flexion 156 Abduction 140 External Rotation at 90 degrees 54 Abduction Internal Rotation 60 Comments AB is 120 deg's without pain. Pain location is at 120 deg's AB. AB in scapular plane is 180 deg's without pain. Right Active Shoulder ROM WFL Yes Testing Position Sitting Flexion 150 Extension 45 Abduction 168 Internal Rotation Behind Back (text) T12 Left Active Shoulder ROM WFL No Testing Position Sitting Flexion 150 Extension 45 Abduction 158 Internal Rotation Behind Back (text) L3 PT-OP-L Special Tests Start: 03/21/21 17:53 Freq: Status: Active Protocol: Document 03/24/21 13:33 LRN (Rec: 03/24/21 16:13 LRN [id number]) Special Tests Shoulder Special Tests Overton Gualberto Impingement Test Results Positive L shoulder Elevation Impingement Test Results Positive L shoulder Anterior Draw Test Results Negative L shoulder PT-OP-M Strength Start: 03/21/21 17:53 Freq: Status: Active Protocol: Document 03/24/21 13:33 LRN (Rec: 03/24/21 14:29 LRN [id number]) Cervical Spine Strength Cervical Spine Manual Muscle Testing Comments Generally 5/5 Shoulder Strength Shoulder Manual Muscle Testing Right Abduction (C5) 4 Good Comments Strength is 5/5 except as indicated above. Left Extension 4 Good Adduction 5 Normal External Rotation 3 Fair Horizontal Adduction 4 Good Comments Strength is 5/5 with break testing except as indicated above. Pain limited strength in areas less than 5/5 Elbow/Forearm Strength Elbow and Forearm Manual Muscle Testing Right Flexion (C6) 5 Normal Extension (C7) 5 Normal Left Flexion (C6) 5 Normal Extension (C7) 5 Normal PT-OP-Q Treatments Start: 03/21/21 17:53 Freq: Status: Active Protocol: Document 05/08/21 13:33 LRN (Rec: 05/08/21 14:20 LRN [id number]) Cardio Equipment Upper Body Ergometer (UBE) Duration (Minutes) 10 RPM 65 Seat Position 10 Height 3 Other fwd/bkwd Therapeutic Exercises Supine Exercises ER stretch w/cane Supine Exercise Name ER stretch w/cane Side left Reps/Minutes 3' Sidelying Exercises L shoulder IR Sidelying Exercise Name IR strengthening Side left Equipment Used 2# Reps/Minutes 3' L shoulder ER Sidelying Exercise Name ER with scapular squeeze at end-range Side left Equipment Used 1# Reps/Minutes 4' Comments Cuing phy & v for isolation of shoulder rot before scapular squeeze Standing Exercises L hand lift off of back Standing Exercise Name Forward bent: L arm lift off of back Side left Reps/Minutes 10x Shoulder IR stretch Standing Exercise Name Behind back stretch w/towel Side left Equipment Used Towel Reps/Minutes 3' Pendulum Standing Exercise Name CW, CCW Side left Reps/Minutes 2x30 sec Comments cues to move body vs actively moving arm Other Exercises Gigi Other Exercise Name L shoulder flex, AB, IR Side left Equipment Used Overhead Gigi, strap for L shoulder Reps/Minutes 3' Comments Pt needed phys assist for proper stretch positioning Manual Therapy Treatment Joint Mobilizations L GHJ Joint L GHJ Direction PA, AP, Inferior Grade II Body Position Supine Reps/Duration 8' Manual Techniques MWM L shldr IR Type PA of humeral head and upward rot of scapula with AA IR w/ towel Body Location L shoulder Body Position Standing Reps/Duration 4' Self-Care/Home Management Treatment Education Patient Education Home Exercise Program Activities Self-Care/Home Management Activities Issued HEP of Subsaculars strengthening (hand lifting off back). I/S pt in sidelie shoulder ER/ IR strengthening. PT-OP-R Modalities Start: 03/21/21 17:53 Freq: Status: Active Protocol: Document 04/18/21 13:38 MA (Rec: 04/18/21 14:21 MA [id number]) Hot Pack/Cold Pack Treatment Ice Pack Location L bicep Patient Position Supine Treatment Duration (minutes) 10 Patient Tolerance Good PT-OP-T Assessment and Plan Start: 03/21/21 17:53 Freq: Status: Active Protocol: Document 05/08/21 13:33 LRN (Rec: 05/08/21 14:20 LRN [id number]) Physical Therapy Assessment Goals Three Impairment Decr'd L shldr ROM (deg's in sit: flex 130, AB 65, Ext 36) Short Term Goal (STG) Initial eval: L shldr AROM ( deg's in sit: flex 130, AB 65, Ext 36, IR - hand to buttock) Pt will improve L shoulder AROM with pt able to put bra on with stiffness at shoulder and pain no greater than 2/10. (05/06/21: can reach bra with pain but too weak to hook bra closed) (05/06/21: Improved L shoulder AROM (in deg's) in sitting: flexion 150, AB 158, Ext 45, IR - L3 ) STG Duration 05/26/21 (05/06/21: Improving) Group Home Goal (LTG) Initial eval: L shldr PROM ( deg's in sup: flex 137, AB 80, ER 10, IR 18) Pt will improve L shoulder PROM, with pt able to lie down without L shoulder aching pain. (05/06/21: Pt able to lie on back without L shoulder aching ). 05/06/21: Improved L shoulder PROM sup: flex 156 deg's, AB 140 deg's, ER 54 deg's, IR 60 deg's) LTG Duration 06/27/21 (05/06/21: Pain goal met, PROM progressed overall) Two Impairment Decreased L shoulder strength due to pain. Short Term Goal (STG) Increase L shoulder strength 1 /2 grade (Initial: Ext 4/5, ER 3/5 horiz AD 4/5) to improve pt's ability to lie down with less shoulder pain. STG Duration 05/26/21 (05/06/21: Pain goal met) Group Home Goal (LTG) Increase L shoulder strength to no less than 4+/5, with pt able to sleep at night at her prior level of disruption ( waking a couple times a night) but not due to L shoulder pain. LTG Duration 06/27/21 One Impairment Lacks appropriate self care HEP Short Term Goal (STG) Pt will be educated in sleeping positions to minimize pain at night. (05/06/21: Discussed sleeping position of sidelie hugging pillow) (05/08/21: Pt reporting no pain with positioning on L sidelie ) STG Duration 05/09/21 (05/06/21: MET GOAL) Group Home Goal (LTG) Pt will be independent in a self care HEP of L neck and shoulder exercises. (04/28/21: Pt has shoulder ROM ex's) LTG Duration 06/27/21 Assessment Summary Assessment Pt reported doing home ex's, except has not been doing L shoulder ER stretch in various positions. Pt has no pain with lying on L shoulder for IR strengthening. Pt also has no shoulder pain with supine lying. Physical Therapy Plan Frequency and Duration Frequency of Treatment 2x/Week Plan of Care Start Date 03/24/21 Plan of Care End Date 06/27/21 Next Visit Focus/Plan Next Note Type Treatment Note Next Visit Plan Review HEP issued: subscapularis, & shoulder ER/ IR sidelie strengthening. Add Belly Press and resisted RC strengthening. Assess need for L GHJ JMT. Assess active shoulder ext & behind back reach (STG #3). Assess L shoulder strength. Add to HEP : neck stretches. Start L shoulder aerobic ex warm up before JMT and stretching of GHJ. Rehab for L shoulder adhesive capsulitis vs frozen shoulder. Impingement present .
--- NOTE | 2021-05-20 08:20 | PT-OP ANOTE ---
Pt called 05/19/21. [employer] called and pt stated didn't sleep well, shld achy but during the day is getting better and compliant with HEP stretching. Pt confirmed next appt on 05/23.
--- NOTE | 2021-05-23 13:16 | PT-OP ANOTE ---
Pt did not show for today's appt, when called her she stated I forgot. She confirmed next appt on 05/26 at 1345 seen on her calendar.
--- NOTE | 2021-05-26 14:34 | PT.OTN ---
Current Diagnoses Stiffness of left shoulder, not elsewhere classified (05/26/21) Muscle weakness (generalized) (05/26/21) Strain of unspecified muscle, fascia and tendon at shoulder and upper arm level, left arm, initial encounter (05/26/21) Physical Therapy Treatment Note PT-OP-A Visit Information Start: 03/21/21 17:53 Freq: Status: Active Protocol: Document 05/26/21 13:49 SP (Rec: 05/26/21 16:28 SP [id number]) Out-Patient Physical Therapy Visit Information Visit Information Visit Type Treatment Note Visit Start Time 13:49 Visit Stop Time 14:34 Total Visit Minutes 45 Visit Number 12 Number of CRIMINAL JUSTICE INSTRUCTOR Visits 1 Evaluation Information Evaluation Date 03/24/21 Precautions Precautions Controlled high cholesteral with Statin medication, 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 PT-OP-B Current Condition Start: 03/21/21 17:53 Freq: Status: Active Protocol: Document 03/24/21 13:33 LRN (Rec: 03/24/21 14:29 LRN [id number]) Current Condition History of Current Condition Onset Date 4 months ago Current Complaints Sore L lateral brachium and shoulder. Can't reach behind/ lift History of Current Condition L shoulder started to hurt after receiving COVID injection. Pain is anterior L shoulder and lateral upper arm (deltoid region). Prior to injection she was just starting to get soreness at top of the shoulder minor ache when doing exercises. Used 8# hand weights 5 days a week while in bed. She is having difficulty sleeping and trouble dressing (putting bra on). She is taking IBP & using deep blue cream to help get to sleep. In recliner supports shoulder from behind with a pillow for comfort. She has had prednisone for a few days that helped her sleep to be more regular (waking only to use bathroom and clear nose). Sometimes when lying at night her pain radiates from shoulder to the neck. Prior Treatments and Tests None Future Testing and Treatments Planned None Developmental History Developmental History Pt is R handed. Treatment Goals Patient/Caregiver Goals Pt goal is to be able to put bra on, sleep at night, and to lie down without shoulder aching. Prior Functional Status Baseline Function- ADL's Independent Baseline Function- Mobility Independent Baseline Function- Other Wakes a couple times a night to use bathroom or blow nose. Able to lie in bed without aching pain. No pain with dressing (putting bra on). Current Functional Impairments (Reported) Functional Limitations- ADL's Sleeps hourly due to needing bathroom visits, coughing, runny nose, and lately L shoulder pain. Notices more lately creaking in neck when moves head (was evident prior to worsening of L shoulder pain. Functional Limitations- Mobility/Gait No pain with gait. Functional Limitations- Recreation/ Gardens, sometimes hurts, then Hobbies has to adjust what she is doing. Functional Limitations- Other Not able to lie down due to ache pain. Difficulty putting bra on, pulling up pants. Personal Factors Other Personal Factors That May Effect None Therapy/Recovery PT-OP-C Subjective Start: 03/21/21 17:53 Freq: Status: Active Protocol: Document 05/26/21 13:49 SP (Rec: 05/26/21 16:28 SP [id number]) OP-PT Subjective Patient Comments Patient Comments Pt states doing good actuallly , L shld still gets achy at night for some reason. Does hurt to reach back to fasten bras still, hard time reaching back so modified clasping hands then flexing trunk forward. Patient Reported Progress Improving PT-OP-E Functional Tests Start: 03/21/21 17:53 Freq: Status: Active Protocol: Document 05/06/21 12:48 LRN (Rec: 05/06/21 13:31 LRN [id number]) Functional Tests Apley's Scratch Test Action 1- Left Top of shoulder, tightness at L shoulder Action 1- Right Top of shoulder Action 2- Left T2 Action 2- Right T3 Action 3- Left L3 Action 3- Right T12 PT-OP-H Neuro Start: 03/21/21 17:53 Freq: Status: Active Protocol: Document 03/24/21 13:33 LRN (Rec: 03/24/21 14:29 LRN [id number]) Sensation Evaluation Gross Sensation Gross Sensation WNL PT-OP-J Posture/Palpation/Skin Start: 03/21/21 17:53 Freq: Status: Active Protocol: Document 03/24/21 13:33 LRN (Rec: 03/24/21 14:29 LRN [id number]) Posture Evaluation Position Standing Head/C-Spine Posture Forward Head T-Spine Posture Increased Kyphosis Shoulder Posture (L) Rounded,(R) Rounded Scapula Posture (L) Elevated Palpation Assessment Location L neck Palpation Location UT Palpation Findings Muscle Guarding,Tenderness L shoulder Palpation Location Pec Minor, anterior & middle deltoid Palpation Findings Soft Tissue Tightness, Tenderness Palpation Details No pain subacromial region or Rotator Cuff attachments at humeral head. PT-OP-K Range of Motion Start: 03/21/21 17:53 Freq: Status: Active Protocol: Document 05/06/21 12:48 LRN (Rec: 05/06/21 13:31 LRN [id number]) Shoulder Goniometric Range of Motion Shoulder Right Passive Shoulder ROM WFL Yes Testing Position Supine Flexion 170 Abduction 180 External Rotation at 90 degrees 80 Abduction Internal Rotation 75 Left Passive Shoulder ROM WFL No Testing Position Supine Flexion 156 Abduction 140 External Rotation at 90 degrees 54 Abduction Internal Rotation 60 Comments AB is 120 deg's without pain. Pain location is at 120 deg's AB. AB in scapular plane is 180 deg's without pain. Right Active Shoulder ROM WFL Yes Testing Position Sitting Flexion 150 Extension 45 Abduction 168 Internal Rotation Behind Back (text) T12 Left Active Shoulder ROM WFL No Testing Position Sitting Flexion 150 Extension 45 Abduction 158 Internal Rotation Behind Back (text) L3 PT-OP-L Special Tests Start: 03/21/21 17:53 Freq: Status: Active Protocol: Document 03/24/21 13:33 LRN (Rec: 03/24/21 16:13 LRN [id number]) Special Tests Shoulder Special Tests Overton Gualberto Impingement Test Results Positive L shoulder Elevation Impingement Test Results Positive L shoulder Anterior Draw Test Results Negative L shoulder PT-OP-M Strength Start: 03/21/21 17:53 Freq: Status: Active Protocol: Document 03/24/21 13:33 LRN (Rec: 03/24/21 14:29 LRN [id number]) Cervical Spine Strength Cervical Spine Manual Muscle Testing Comments Generally 5/5 Shoulder Strength Shoulder Manual Muscle Testing Right Abduction (C5) 4 Good Comments Strength is 5/5 except as indicated above. Left Extension 4 Good Adduction 5 Normal External Rotation 3 Fair Horizontal Adduction 4 Good Comments Strength is 5/5 with break testing except as indicated above. Pain limited strength in areas less than 5/5 Elbow/Forearm Strength Elbow and Forearm Manual Muscle Testing Right Flexion (C6) 5 Normal Extension (C7) 5 Normal Left Flexion (C6) 5 Normal Extension (C7) 5 Normal PT-OP-Q Treatments Start: 03/21/21 17:53 Freq: Status: Active Protocol: Document 05/26/21 13:49 SP (Rec: 05/26/21 16:28 SP [id number]) Cardio Equipment Upper Body Ergometer (UBE) Duration (Minutes) 10 RPM 65 Seat Position 10 Height 3 Other fwd/bkwd each minute: 65 RPM, 491 revolutions Therapeutic Exercises Supine Exercises IR Supine Exercise Name IR and ER (reviewed HEP) Resistance #2 DB Reps/Minutes 10 reps alternating directions Comments cued scap stab during IR- pain free range Sidelying Exercises L shoulder IR Sidelying Exercise Name IR strengthening in L sidelying Side left Resistance reviewed HEP Equipment Used 2# Reps/Minutes 3' Comments little clicking but feels like beneficial L shoulder ER Sidelying Exercise Name ER with scapular squeeze at end-range (R sidelying) Side left Resistance reviewed HEP Equipment Used 2# Reps/Minutes 2 min Comments occasional cuing for isolation of shoulder rot before scapular squeeze Standing Exercises PNF Side left Resistance AROM Equipment Used front mirror self feedback Reps/Minutes x5 Comments cued trunk alignment, level shlds- cued press into scaption improv self L hand lift off of back Standing Exercise Name Forward bent: L arm lift off of back Side left Resistance reviewed HEP Reps/Minutes 10x Comments Improved reaching back T9 and able push away post IR/ ER, towel str, gigi Shoulder IR stretch Standing Exercise Name Across pelvis, then up behind back stretch w/towel Side left Resistance reviewed HEP Equipment Used dowel>Towel Reps/Minutes 5 Comments good feedback response- slow pacing movement (gained ROM 5 vertebra) Other Exercises Gigi Other Exercise Name L shoulder flex, AB Side left Equipment Used Overhead Gigi, strap for L shoulder Reps/Minutes 3' Comments Pt needed phys assist for proper stretch positioning PT-OP-R Modalities Start: 03/21/21 17:53 Freq: Status: Active Protocol: Document 04/18/21 13:38 MA (Rec: 04/18/21 14:21 MA [id number]) Hot Pack/Cold Pack Treatment Ice Pack Location L bicep Patient Position Supine Treatment Duration (minutes) 10 Patient Tolerance Good PT-OP-T Assessment and Plan Start: 03/21/21 17:53 Freq: Status: Active Protocol: Document 05/26/21 13:49 SP (Rec: 05/26/21 16:28 SP [id number]) Physical Therapy Assessment Goals Three Impairment Decr'd L shldr ROM (deg's in sit: flex 130, AB 65, Ext 36) Short Term Goal (STG) Initial eval: L shldr AROM ( deg's in sit: flex 130, AB 65, Ext 36, IR - hand to buttock) Pt will improve L shoulder AROM with pt able to put bra on with stiffness at shoulder and pain no greater than 2/10. (05/06/21: can reach bra with pain but too weak to hook bra closed) (05/06/21: Improved L shoulder AROM (in deg's) in sitting: flexion 150, AB 158, Ext 45, IR - L3 ) 05/26/21: Initial LUE IR top iliac crest on R progressed to T9 end tx AROM and able to perform press out in LB. STG Duration 05/26/21 (05/06/21: Improving) Prison Goal (LTG) Initial eval: L shldr PROM ( deg's in sup: flex 137, AB 80, ER 10, IR 18) Pt will improve L shoulder PROM, with pt able to lie down without L shoulder aching pain. (05/06/21: Pt able to lie on back without L shoulder aching ). 05/06/21: Improved L shoulder PROM sup: flex 156 deg's, AB 140 deg's, ER 54 deg's, IR 60 deg's) LTG Duration 06/27/21 (05/06/21: Pain goal met, PROM progressed overall) Two Impairment Decreased L shoulder strength due to pain. Short Term Goal (STG) Increase L shoulder strength 1 /2 grade (Initial: Ext 4/5, ER 3/5 horiz AD 4/5) to improve pt's ability to lie down with less shoulder pain. STG Duration 05/26/21 (05/06/21: Pain goal met) Telephone Operators Supervisor Goal (LTG) Increase L shoulder strength to no less than 4+/5, with pt able to sleep at night at her prior level of disruption ( waking a couple times a night) but not due to L shoulder pain. LTG Duration 06/27/21 One Impairment Lacks appropriate self care HEP Short Term Goal (STG) Pt will be educated in sleeping positions to minimize pain at night. (05/06/21: Discussed sleeping position of sidelie hugging pillow) (05/08/21: Pt reporting no pain with positioning on L sidelie ) STG Duration 05/09/21 (05/06/21: MET GOAL) Telephone Operators Supervisor Goal (LTG) Pt will be independent in a self care HEP of L neck and shoulder exercises. (04/28/21: Pt has shoulder ROM ex's) LTG Duration 06/27/21 Progress Towards Goals Progress Towards Goals Progressing Toward Goals Progress Comments Improved LUE IR AROM in standing top iliac crest to T9 and able perform press outs in LB with good form, decreased protraction compenstations and pain over anterior L shld. Assessment Summary Assessment Pt missed last 2 appts. Pt improved in IR and reaching behind back post IR/ ER/ gigi ther ex review this tx. Cues for good form set up using dowel vs towel IR form. Pt had good form with hand press away from back end tx at L3 level. Physical Therapy Plan Frequency and Duration Frequency of Treatment 2x/Week Plan of Care Start Date 03/24/21 Plan of Care End Date 06/27/21 Therapeutic Interventions Therapeutic Interventions Home Exercise Program,Joint Mobilizations,Manual Therapy, Neuromuscular Re-education, Patient/Caregiver Education, Self-Care/Home Management,Soft Tissue Mobilization,Taping, Therapeutic Activities, Therapeutic Exercises Next Visit Focus/Plan Next Note Type Treatment Note Next Visit Plan Assess reponse to focused IR ROM and HEP review last tx. POC: Review HEP issued: subscapularis, & shoulder ER/ IR sidelie strengthening. Add Belly Press and resisted RC strengthening. Assess need for L GHJ JMT. Assess active shoulder ext & behind back reach (STG #3). Assess L shoulder strength. Add to HEP : neck stretches. Start L shoulder aerobic ex warm up before JMT and stretching of GHJ. Rehab for L shoulder adhesive capsulitis vs frozen shoulder. Impingement present .
--- NOTE | 2021-05-29 16:14 | PT.OTN ---
Current Diagnoses Stiffness of left shoulder, not elsewhere classified (05/29/21) Muscle weakness (generalized) (05/29/21) Strain of unspecified muscle, fascia and tendon at shoulder and upper arm level, left arm, initial encounter (05/29/21) Physical Therapy Treatment Note PT-OP-A Visit Information Start: 03/21/21 17:53 Freq: Status: Active Protocol: Document 05/29/21 13:31 LRN (Rec: 05/29/21 14:22 LRN [id number]) Out-Patient Physical Therapy Visit Information Visit Information Visit Type Treatment Note Visit Start Time 13:31 Visit Stop Time 14:20 Total Visit Minutes 49 Visit Number 13 Evaluation Information Evaluation Date 03/24/21 Precautions Precautions Controlled high cholesteral with Statin medication, 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 PT-OP-B Current Condition Start: 03/21/21 17:53 Freq: Status: Active Protocol: Document 03/24/21 13:33 LRN (Rec: 03/24/21 14:29 LRN [id number]) Current Condition History of Current Condition Onset Date 4 months ago Current Complaints Sore L lateral brachium and shoulder. Can't reach behind/ lift History of Current Condition L shoulder started to hurt after receiving COVID injection. Pain is anterior L shoulder and lateral upper arm (deltoid region). Prior to injection she was just starting to get soreness at top of the shoulder minor ache when doing exercises. Used 8# hand weights 5 days a week while in bed. She is having difficulty sleeping and trouble dressing (putting bra on). She is taking IBP & using deep blue cream to help get to sleep. In recliner supports shoulder from behind with a pillow for comfort. She has had prednisone for a few days that helped her sleep to be more regular (waking only to use bathroom and clear nose). Sometimes when lying at night her pain radiates from shoulder to the neck. Prior Treatments and Tests None Future Testing and Treatments Planned None Developmental History Developmental History Pt is R handed. Treatment Goals Patient/Caregiver Goals Pt goal is to be able to put bra on, sleep at night, and to lie down without shoulder aching. Prior Functional Status Baseline Function- ADL's Independent Baseline Function- Mobility Independent Baseline Function- Other Wakes a couple times a night to use bathroom or blow nose. Able to lie in bed without aching pain. No pain with dressing (putting bra on). Current Functional Impairments (Reported) Functional Limitations- ADL's Sleeps hourly due to needing bathroom visits, coughing, runny nose, and lately L shoulder pain. Notices more lately creaking in neck when moves head (was evident prior to worsening of L shoulder pain. Functional Limitations- Mobility/Gait No pain with gait. Functional Limitations- Recreation/ Gardens, sometimes hurts, then Hobbies has to adjust what she is doing. Functional Limitations- Other Not able to lie down due to ache pain. Difficulty putting bra on, pulling up pants. Personal Factors Other Personal Factors That May Effect None Therapy/Recovery PT-OP-C Subjective Start: 03/21/21 17:53 Freq: Status: Active Protocol: Document 05/29/21 13:31 LRN (Rec: 05/29/21 14:22 LRN [id number]) OP-PT Subjective Patient Comments Patient Comments States L shoulder IR mobility seems better, but she still aches at night. States she doesn't ache going to bed, but the L upper arm aches at night when she's on her back. Pt thinks her pain is less during the day, but still present at night. Thinks her pain has been less at night with use of IBP. PT-OP-E Functional Tests Start: 03/21/21 17:53 Freq: Status: Active Protocol: Document 05/29/21 13:31 LRN (Rec: 05/29/21 14:22 LRN [id number]) Functional Tests Apley's Scratch Test Action 2- Left T1 Action 2- Right T2 PT-OP-H Neuro Start: 03/21/21 17:53 Freq: Status: Active Protocol: Document 03/24/21 13:33 LRN (Rec: 03/24/21 14:29 LRN [id number]) Sensation Evaluation Gross Sensation Gross Sensation WNL PT-OP-J Posture/Palpation/Skin Start: 03/21/21 17:53 Freq: Status: Active Protocol: Document 03/24/21 13:33 LRN (Rec: 03/24/21 14:29 LRN [id number]) Posture Evaluation Position Standing Head/C-Spine Posture Forward Head T-Spine Posture Increased Kyphosis Shoulder Posture (L) Rounded,(R) Rounded Scapula Posture (L) Elevated Palpation Assessment Location L neck Palpation Location UT Palpation Findings Muscle Guarding,Tenderness L shoulder Palpation Location Pec Minor, anterior & middle deltoid Palpation Findings Soft Tissue Tightness, Tenderness Palpation Details No pain subacromial region or Rotator Cuff attachments at humeral head. PT-OP-K Range of Motion Start: 03/21/21 17:53 Freq: Status: Active Protocol: Document 05/29/21 13:31 LRN (Rec: 05/29/21 14:22 LRN [id number]) Shoulder Goniometric Range of Motion Shoulder Right Passive Internal Rotation Behind Back (text) T12 Left Passive Shoulder ROM WFL No Internal Rotation Behind Back (text) L1 Comments Sitting PROM (with gigi): Flex 150 deg's AB 170 deg's Right Active Comments Sitting PROM (with gigi): Flex 150 deg's AB 175 deg's PT-OP-L Special Tests Start: 03/21/21 17:53 Freq: Status: Active Protocol: Document 03/24/21 13:33 LRN (Rec: 03/24/21 16:13 LRN [id number]) Special Tests Shoulder Special Tests Overton Gualberto Impingement Test Results Positive L shoulder Elevation Impingement Test Results Positive L shoulder Anterior Draw Test Results Negative L shoulder PT-OP-M Strength Start: 03/21/21 17:53 Freq: Status: Active Protocol: Document 03/24/21 13:33 LRN (Rec: 03/24/21 14:29 LRN [id number]) Cervical Spine Strength Cervical Spine Manual Muscle Testing Comments Generally 5/5 Shoulder Strength Shoulder Manual Muscle Testing Right Abduction (C5) 4 Good Comments Strength is 5/5 except as indicated above. Left Extension 4 Good Adduction 5 Normal External Rotation 3 Fair Horizontal Adduction 4 Good Comments Strength is 5/5 with break testing except as indicated above. Pain limited strength in areas less than 5/5 Elbow/Forearm Strength Elbow and Forearm Manual Muscle Testing Right Flexion (C6) 5 Normal Extension (C7) 5 Normal Left Flexion (C6) 5 Normal Extension (C7) 5 Normal PT-OP-Q Treatments Start: 03/21/21 17:53 Freq: Status: Active Protocol: Document 05/29/21 13:31 LRN (Rec: 05/29/21 14:22 LRN [id number]) Cardio Equipment Upper Body Ergometer (UBE) Duration (Minutes) 10 RPM 60 Seat Position 3 Height 3 Other fwd/bkwd each minute: 60 RPM, revolutions Therapeutic Exercises Standing Exercises Row Side bilateral Equipment Used Lev 2 TB Reps/Minutes 15x 2 L hand lift off of back Standing Exercise Name Forward bent: L arm lift off of back Side left Reps/Minutes 10x Comments Improved reaching back T9 and able push away post IR/ ER, towel str, gigi ER/IR Standing Exercise Name ER/IR Side left Resistance Lev 2 TB Reps/Minutes 15x 2 ABD Standing Exercise Name Shd ABD Equipment Used wand Other Exercises Gigi Other Exercise Name L shoulder flex, AB Side left Equipment Used Overhead Gigi, strap for L shoulder Reps/Minutes 5' Comments Pt needed phys assist for proper stretch positioning Manual Therapy Treatment Soft Tissue Mobilization L UT Body Location L UT, Middle Scalene Mobilization Type Myofascial Release,Strumming, Sustained Pressure,Trigger Point Release Intensity/Depth Moderate Body Position Hooklying Comments + response to TrP release. Tight bilaterally. Manual Techniques MWM L shldr IR Type PA of humeral head and upward rot of scapula with AA IR w/ towel Body Location L shoulder Body Position Standing Reps/Duration 4' PT-OP-R Modalities Start: 03/21/21 17:53 Freq: Status: Active Protocol: Document 04/18/21 13:38 MA (Rec: 04/18/21 14:21 MA [id number]) Hot Pack/Cold Pack Treatment Ice Pack Location L bicep Patient Position Supine Treatment Duration (minutes) 10 Patient Tolerance Good PT-OP-T Assessment and Plan Start: 03/21/21 17:53 Freq: Status: Active Protocol: Document 05/29/21 13:31 LRN (Rec: 05/29/21 14:22 LRN [id number]) Physical Therapy Assessment Goals Three Impairment Decr'd L shldr ROM (deg's in sit: flex 130, AB 65, Ext 36) Short Term Goal (STG) Initial eval: L shldr AROM ( deg's in sit: flex 130, AB 65, Ext 36, IR - hand to buttock) Pt will improve L shoulder AROM with pt able to put bra on or scratch the back with stiffness at L shoulder and pain no greater than 2/10. (05/06/21: can reach bra with pain but too weak to hook bra closed) (05/06/21: Improved L shoulder AROM (in deg's) in sitting: flexion 150, AB 158, Ext 45, IR - L3 ) 05/26/21: Initial LUE IR top iliac crest on R progressed to T9 end tx AROM and able to perform press out in LB. STG Duration 05/26/21 (05/06/21: Improving) Egg Breaker Goal (LTG) Initial eval: L shldr PROM ( deg's in sup: flex 137, AB 80, ER 10, IR 18) Pt will improve L shoulder PROM, with pt able to lie down without L shoulder aching pain. (05/06/21: Pt able to lie on back without L shoulder aching ). 05/06/21: Improved L shoulder PROM sup: flex 156 deg's, AB 140 deg's, ER 54 deg's, IR 60 deg's) LTG Duration 06/27/21 (05/06/21: Pain goal met, PROM progressed overall) Two Impairment Decreased L shoulder strength due to pain. Short Term Goal (STG) Increase L shoulder strength 1 /2 grade (Initial: Ext 4/5, ER 3/5 horiz AD 4/5) to improve pt's ability to lie down with less shoulder pain. STG Duration 05/26/21 (05/06/21: Pain goal met) Egg Breaker Goal (LTG) Increase L shoulder strength to no less than 4+/5, with pt able to sleep at night at her prior level of disruption ( waking a couple times a night) but not due to L shoulder pain. LTG Duration 06/27/21 One Impairment Lacks appropriate self care HEP Short Term Goal (STG) Pt will be educated in sleeping positions to minimize pain at night. (05/06/21: Discussed sleeping position of sidelie hugging pillow) (05/08/21: Pt reporting no pain with positioning on L sidelie ) STG Duration 05/09/21 (05/06/21: MET GOAL) Mcfp Goal (LTG) Pt will be independent in a self care HEP of L neck and shoulder exercises. (04/28/21: Pt has shoulder ROM ex's) LTG Duration 06/27/21 Assessment Summary Assessment Pt appears to be placing her head in excessive neck flexion during the night due to her sinus condition; therefore she may be getting L Deltoid pain (C4-C5) pain from this excessive flexion. Pt felt comfortable on respiratory wedge although pt cautioned wedge hgt needs to be as low as possible to avoid onset of back pain. Pt tolerated HEP of IR ROM with reported improvement in ROM. Pt able to do shoulder ER/IR strengthening with TB without onset of pain; therefore advanced to resisted strengthening, handouts needed next visit. Pt has very tight bilateral UT's and neck mobility tightness for cervical SB & cervical L > R rotation. Physical Therapy Plan Frequency and Duration Frequency of Treatment 2x/Week Plan of Care Start Date 03/24/21 Plan of Care End Date 06/27/21 Next Visit Focus/Plan Next Note Type Treatment Note Next Visit Plan Pt choosing to be placed on HEP in 2 visits. Review HEP issued: subscapularis, & shoulder ER/ IR sidelie strengthening. Add HEP: Belly Press and resisted RC strengthening & neck stretches. Assess need for L GHJ JMT after aerobic conditioning of UE's on UBE. Assess active shoulder ext & behind back reach (STG #3). Assess L shoulder strength. Rehab for L shoulder adhesive capsulitis vs frozen shoulder. Impingement initially present.
--- NOTE | 2021-06-02 15:15 | PT.OTN ---
Current Diagnoses Stiffness of left shoulder, not elsewhere classified (06/02/21) Muscle weakness (generalized) (06/02/21) Strain of unspecified muscle, fascia and tendon at shoulder and upper arm level, left arm, initial encounter (06/02/21) Physical Therapy Treatment Note PT-OP-A Visit Information Start: 03/21/21 17:53 Freq: Status: Active Protocol: Document 06/02/21 13:34 LRN (Rec: 06/02/21 14:43 LRN [id number]) Out-Patient Physical Therapy Visit Information Visit Information Visit Type Treatment Note Visit Start Time 13:34 Visit Stop Time 14:22 Total Visit Minutes 48 Visit Number 14 Evaluation Information Evaluation Date 03/24/21 Precautions Precautions Controlled high cholesteral with Statin medication, 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 PT-OP-B Current Condition Start: 03/21/21 17:53 Freq: Status: Active Protocol: Document 03/24/21 13:33 LRN (Rec: 03/24/21 14:29 LRN [id number]) Current Condition History of Current Condition Onset Date 4 months ago Current Complaints Sore L lateral brachium and shoulder. Can't reach behind/ lift History of Current Condition L shoulder started to hurt after receiving COVID injection. Pain is anterior L shoulder and lateral upper arm (deltoid region). Prior to injection she was just starting to get soreness at top of the shoulder minor ache when doing exercises. Used 8# hand weights 5 days a week while in bed. She is having difficulty sleeping and trouble dressing (putting bra on). She is taking IBP & using deep blue cream to help get to sleep. In recliner supports shoulder from behind with a pillow for comfort. She has had prednisone for a few days that helped her sleep to be more regular (waking only to use bathroom and clear nose). Sometimes when lying at night her pain radiates from shoulder to the neck. Prior Treatments and Tests None Future Testing and Treatments Planned None Developmental History Developmental History Pt is R handed. Treatment Goals Patient/Caregiver Goals Pt goal is to be able to put bra on, sleep at night, and to lie down without shoulder aching. Prior Functional Status Baseline Function- ADL's Independent Baseline Function- Mobility Independent Baseline Function- Other Wakes a couple times a night to use bathroom or blow nose. Able to lie in bed without aching pain. No pain with dressing (putting bra on). Current Functional Impairments (Reported) Functional Limitations- ADL's Sleeps hourly due to needing bathroom visits, coughing, runny nose, and lately L shoulder pain. Notices more lately creaking in neck when moves head (was evident prior to worsening of L shoulder pain. Functional Limitations- Mobility/Gait No pain with gait. Functional Limitations- Recreation/ Gardens, sometimes hurts, then Hobbies has to adjust what she is doing. Functional Limitations- Other Not able to lie down due to ache pain. Difficulty putting bra on, pulling up pants. Personal Factors Other Personal Factors That May Effect None Therapy/Recovery PT-OP-C Subjective Start: 03/21/21 17:53 Freq: Status: Active Protocol: Document 06/02/21 13:34 LRN (Rec: 06/02/21 14:43 LRN [id number]) OP-PT Subjective Patient Comments Patient Comments No change in pain at night. Did not get a wedge to sleep on. No pain L shoulder during the day, stiff when waking. Last visit, would like to review HEP. Patient Questionnaires Quick Dash- Upper Extremity Quick Dash UE Score 20.45 Quick Dash UE Impairment 20 to 39% Impaired (Score 20- 39) OP-PT Pain Assessment Location L shoulder Pain Location Details Posterior L shoulder joint during the nighttime only Intensity 2 Description Aching PT-OP-E Functional Tests Start: 03/21/21 17:53 Freq: Status: Active Protocol: Document 06/02/21 13:34 LRN (Rec: 06/02/21 14:43 LRN [id number]) Functional Tests Apley's Scratch Test Action 1- Left Medial border of scapula Action 1- Right Medial border of scapula Action 2- Left T3 Action 2- Right T4 Action 3- Left T10 Action 3- Right T9 PT-OP-H Neuro Start: 03/21/21 17:53 Freq: Status: Active Protocol: Document 03/24/21 13:33 LRN (Rec: 03/24/21 14:29 LRN [id number]) Sensation Evaluation Gross Sensation Gross Sensation WNL PT-OP-J Posture/Palpation/Skin Start: 03/21/21 17:53 Freq: Status: Active Protocol: Document 03/24/21 13:33 LRN (Rec: 03/24/21 14:29 LRN [id number]) Posture Evaluation Position Standing Head/C-Spine Posture Forward Head T-Spine Posture Increased Kyphosis Shoulder Posture (L) Rounded,(R) Rounded Scapula Posture (L) Elevated Palpation Assessment Location L neck Palpation Location [place] Palpation Findings Muscle Guarding,Tenderness L shoulder Palpation Location Pec Minor, anterior & middle deltoid Palpation Findings Soft Tissue Tightness, Tenderness Palpation Details No pain subacromial region or Rotator Cuff attachments at humeral head. PT-OP-K Range of Motion Start: 03/21/21 17:53 Freq: Status: Active Protocol: Document 06/02/21 13:34 LRN (Rec: 06/02/21 14:43 LRN [id number]) Shoulder Goniometric Range of Motion Shoulder Right Passive Internal Rotation Behind Back (text) T12 Left Passive Shoulder ROM WFL No Testing Position Supine Flexion 164 Abduction 180 External Rotation at 90 degrees 80 Abduction Internal Rotation 72 Right Active Comments Sitting PROM (with jesica): Flex 150 deg's AB 175 deg's Left Active Shoulder ROM WFL No Testing Position Sitting Flexion 160 Abduction 165 External Rotation at 0 degrees Abduction 50 Internal Rotation Behind Back (text) T3 PT-OP-L Special Tests Start: 03/21/21 17:53 Freq: Status: Active Protocol: Document 03/24/21 13:33 LRN (Rec: 03/24/21 16:13 LRN [id number]) Special Tests Shoulder Special Tests Overton Gualberto Impingement Test Results Positive L shoulder Elevation Impingement Test Results Positive L shoulder Anterior Draw Test Results Negative L shoulder PT-OP-M Strength Start: 03/21/21 17:53 Freq: Status: Active Protocol: Document 06/02/21 13:34 LRN (Rec: 06/02/21 14:43 LRN [id number]) Shoulder Strength Shoulder Manual Muscle Testing Right Internal Rotation 3 Fair Comments Generally 5/5 except as indicated above. Left Flexion 5 Normal Adduction 5 Normal External Rotation 5 Normal Internal Rotation 3+ Fair+ PT-OP-Q Treatments Start: 03/21/21 17:53 Freq: Status: Active Protocol: Document 06/02/21 13:34 LRN (Rec: 06/02/21 14:43 LRN [id number]) Cardio Equipment Upper Body Ergometer (UBE) Duration (Minutes) 6 RPM 60 Seat Position 3 Height 3 Other fwd/bkwd each minute: 60 RPM, revolutions Therapeutic Exercises Supine Exercises PROM L shoulder Supine Exercise Name PROM stretch flex, AB, IR with cane Side left ER stretch w/cane Supine Exercise Name ER stretch w/cane Side left Reps/Minutes 3' Sitting Exercises AROM Sitting Exercise Name L shoulder AROM flex, AB, ER, IR Side left Comments AROM taken Standing Exercises Row Side bilateral Equipment Used Lev 2 TB Reps/Minutes 15x 2 L hand lift off of back Standing Exercise Name Forward bent: L arm lift off of back Side left Reps/Minutes 10x Comments Improved reaching back T9 and able push away post IR/ ER, towel str, jesica ER/IR Standing Exercise Name ER/IR Side left Resistance Lev 2 TB Reps/Minutes 15x 2 Shoulder IR stretch Standing Exercise Name Across pelvis, then up behind back stretch w/towel Side left Resistance reviewed HEP Equipment Used dowel>Towel Self-Care/Home Management Treatment Education Patient Education Home Exercise Program Other Education Reviewed HEP of Belly Press, shoulder stretches with cane and towel. Activities Self-Care/Home Management Activities Issued & reviewed HEP strengthening: Lat pull down, shoulder depression, RC: shoulder ER/IR strengthening. PT-OP-R Modalities Start: 03/21/21 17:53 Freq: Status: Active Protocol: Document 04/18/21 13:38 MA (Rec: 04/18/21 14:21 MA [id number]) Hot Pack/Cold Pack Treatment Ice Pack Location L bicep Patient Position Supine Treatment Duration (minutes) 10 Patient Tolerance Good PT-OP-T Assessment and Plan Start: 03/21/21 17:53 Freq: Status: Active Protocol: Document 06/02/21 13:34 LRN (Rec: 06/02/21 14:43 LRN [id number]) Physical Therapy Assessment Goals Three Impairment Decr'd L shldr ROM (deg's in sit: flex 130, AB 65, Ext 36) Short Term Goal (STG) Initial eval: L shldr AROM ( deg's in sit: flex 130, AB 65, Ext 36, IR - hand to buttock) Pt will improve L shoulder AROM with pt able to put bra on or scratch the back with stiffness at L shoulder and pain no greater than 2/10. (06/02/21: can reach bra with pain but changing to bras that hook in front) (05/06/21: Improved L shoulder AROM (in deg's) in sitting: flexion 150, AB 158, Ext 45, IR - L3 ) 05/26/21: Initial LUE IR top iliac crest on R progressed to T9 end tx AROM and able to perform press out in LB. STG Duration 05/26/21 (06/02/21: MET GOAL) Mcc Goal (LTG) Initial eval: L shldr PROM ( deg's in sup: flex 137, AB 80, ER 10, IR 18) Pt will improve L shoulder PROM, with pt able to lie down without L shoulder aching pain. (06/02/21: Pt able to lie on back without L shoulder aching ). LTG Duration 06/27/21 (06/02/21: MET GOAL) Two Impairment Decreased L shoulder strength due to pain. Short Term Goal (STG) Increase L shoulder strength 1 /2 grade (Initial: Ext 4/5, ER 3/5 horiz AD 4/5) to improve pt's ability to lie down with less shoulder pain. STG Duration 05/26/21 (06/02/21: MET GOAL) Mcc Goal (LTG) Increase L shoulder strength to no less than 4+/5, with pt able to sleep at night at her prior level of disruption ( waking a couple times a night) but not due to L shoulder pain. (06/02/21: Pt sometimes is able to sleep through the night). LTG Duration 06/27/21 (06/02/21: PARTIALLY MET GOAL. One Impairment Lacks appropriate self care HEP Short Term Goal (STG) Pt will be educated in sleeping positions to minimize pain at night. (05/06/21: Discussed sleeping position of sidelie hugging pillow) (05/08/21: Pt reporting no pain with positioning on L sidelie ) STG Duration 05/09/21 (05/06/21: MET GOAL) De Icer Installer Goal (LTG) Pt will be independent in a self care HEP of L neck and shoulder exercises. (04/28/21: Pt has shoulder ROM ex's) LTG Duration 06/27/21 (06/02/21: Early DC; PARIALLY MET GOAL) Assessment Summary Assessment Pt has done well with therapy in improving her L shoulder AROM/PROM (limited mildly with all but passive L shoulder AB ). Her L shoulder strength is normal except weakness with IR greater than on the R side (R side is weak also). The pt 's L shoulder pain was elicited with excessive neck flexion; therefore I believe if the pt can decrease the excessive height of her pillows that she uses to help her breath at night, her L shoulder pain during the night would be resolved. The pt might benefit from a respiratory wedge to elevate her chest/head for better breathing, without forcing her head into excessive flexion; thereby eliminating her L shoulder pain. The pt will continue with her HEP for further strengthening of the L shoulder for greater stability and less possibility on of onset of pain. Physical Therapy Plan Discharge Physical Therapy Discharge Comments Pt is choosing to discharge from therapy to her independent HEP to work towards improving her L shoulder strength and will make adjustments to her positioning at nighttime for expected full resolution of her L shoulder nighttime pain. Thank you for your referral.
== END 2021-06-04 13:32 | disposition home or self-care (01) ==
LOC: PHYS 13:30
PROVIDERS: PCP Family Medicine; Referring Provider Family Medicine; Visit Provider Family Medicine
DX: S46.912A Strain of unspecified muscle, fascia and tendon at shoulder and upper arm level, left arm, initial encounter (principal); M62.81 Muscle weakness (generalized); M25.612 Stiffness of left shoulder, not elsewhere classified
CPT/HCPCS: 97110; 97140; 97161; 97535

== ENCOUNTER → 2022-03-16 15:04 | Outpatient (CLI) | payer MEDICARE, OTHER, SELFPAY ==
--- NOTE | 2022-03-16 15:05 | DI.MG.S_ITS ---
BILATERAL DIGITAL SCREENING MAMMOGRAM 3D/2D WITH CAD: 03/16/2022 CLINICAL: Routine screening. Family history of breast cancer. Comparison is made to exams dated: 04/18/2020 mammogram, 03/04/2018 mammogram, and 02/20/2016 mammogram - [facility]. The tissue of both breasts is heterogeneously dense. This may lower the sensitivity of mammography. Current study was also evaluated with a Computer Aided Detection (CAD) system. No significant masses, calcifications, or other findings are seen in either breast. There has been no significant interval change. IMPRESSION: NEGATIVE There is no mammographic evidence of malignancy. A 1 year screening mammogram is recommended. This exam was interpreted at Station ID: [id number]. NOTE: For mammograms, a report in lay terms will be sent to the patient. Approximately 15% of breast malignancies will not be visualized mammographically. In the management of a palpable breast mass, a negative mammogram must not discourage biopsy of a clinically suspicious lesion. Electronically Signed By: Luis brennan/estefani:03/17/2022 09:39:33 letter sent: Normal Exam ACR BI-RADS Category 1: Negative [id number]
== END ==
PROVIDERS: PCP Family Medicine; Referring Provider Family Medicine; Visit Provider Family Medicine
DX: Z12.31 Encounter for screening mammogram for malignant neoplasm of breast (principal); Z80.3 Family history of malignant neoplasm of breast
CPT/HCPCS: 77063; 77067

== ENCOUNTER → 2022-07-07 07:15 | Outpatient (CLI) | payer MEDICARE, OTHER, SELFPAY ==
[2022-07-07 09:08] LABS: Alanine Aminotransferase 19 IU/L (<35); Albumin 4.3 g/dL (3.5-5.0); Albumin Globulin Ratio 1.7 (1.0-2.8); Alkaline Phosphatase 34 U/L (38-126); Aspartate Aminotransferase 22 IU/L (14-36); BUN Creatinine Ratio 17.3 (6-22); Bilirubin Total 0.6 mg/dL (0.2-1.3); Blood Urea Nitrogen 13 mg/dL (7-17); Calcium 9.1 mg/dL (8.4-10.2); Carbon Dioxide 28 mmol/L (22-32); Chloride 102 mmol/L (98-107); Cholesterol 206 mg/dL (140-199); Estimated Glomerular Filt Rate > 60 mL/min (>60); Globulin 2.6 g/dL (1.7-4.1); Glucose 97 mg/dL (80-110); HDL Cholesterol 88 mg/dL (40-60); HEMOLYSIS < 15 (0-50); LDL Cholesterol Calculated 107 mg/dL (<100); Sodium 138 mmol/L (137-145); Total Protein 6.9 g/dL (6.3-8.2); Triglycerides 57 mg/dL (35-150)
== END ==
PROVIDERS: PCP Family Medicine; Referring Provider Family Medicine; Visit Provider Family Medicine
DX: E78.5 Hyperlipidemia, unspecified (principal)
CPT/HCPCS: 36415; 80053; 80061

== ENCOUNTER → 2022-10-02 09:47 | Outpatient (CLI) | payer MEDICARE, OTHER, SELFPAY ==
--- NOTE | 2022-10-02 | DI.CT.S_ITS ---
PROCEDURE: CT SINUS SCREEN WO CON INDICATIONS: Allergic rhinitis/Chronic pansinusitus TECHNIQUE: Noncontrast 3.0 mm axial images acquired from the frontal sinuses to the mid-sella, with coronal and sagittal reformats. For radiation dose reduction, the following was used: automated exposure control, adjustment of mA and/or kV according to patient size. COMPARISON: None. FINDINGS: Image quality: Excellent. Maxillary Sinuses: No bony remodeling or destruction. Moderate mucosal thickening is seen within the inferior maxillary sinuses. There is mild demineralization seen of the medial rudd of the maxillary sinuses. Ethmoid Air Cells: No bony remodeling or destruction. Sinuses are clear. Sphenoid Sinuses: No bony remodeling or destruction. There is moderate mucosal thickening within the left sphenoid sinus. Frontal Sinuses: No bony remodeling or destruction. Sinuses are clear. Ostiomeatal Complexes: The ostiomeatal complexes are patent, yet they are constitutionally narrowed, with bilateral Jorge cells. Miscellaneous: Visualized intra-orbital contents are normal. No jared bullosa or paradoxical turbinate curvature. There is mild rightward nasal septal deviation. IMPRESSION: Focal moderate mucosal thickening seen involving the maxillary sinuses. The demineralization of the medial rudd of the maxillary sinuses is suggestive of chronic sinusitis. Moderate mucosal thickening is also seen within the left sphenoid sinus. The ostiomeatal complexes are constitutionally narrowed, with bilateral Jorge cells. There is mild rightward nasal septal deviation. Dictated by: Landon Weinstein M.D. on 10/02/2022 at 9:29 Approved by: Landon Weinstein M.D. on 10/02/2022 at 9:31
== END ==
PROVIDERS: PCP Family Medicine; Referring Provider Otolaryngology; Visit Provider Otolaryngology
DX: J32.4 Chronic pansinusitis (principal); J30.89 Other allergic rhinitis; J34.2 Deviated nasal septum
CPT/HCPCS: 70486

== ENCOUNTER → 2023-01-28 10:15 | Outpatient (CLI) | payer MEDICARE, OTHER, SELFPAY ==
--- NOTE | 2023-01-28 10:16 | DI.RAD.S_ITS ---
PROCEDURE: XR WRIST RT MIN 3V INDICATIONS: Right wrist mass TECHNIQUE: 4 views of the wrist were acquired. COMPARISON: None. FINDINGS: Bones: No fractures or dislocations. No suspicious bony lesions. Scaphoid view: No acute fracture visualized. Soft tissues: No suspicious soft tissue calcifications. IMPRESSION: No acute fracture visualized. The soft tissues are not well evaluated by radiography. If clinically indicated, MRI or CT could be obtained for further evaluation. Dictated by: Ryan Reyes M.D. on 01/28/2023 at 11:42 Approved by: Ryan Reyes M.D. on 01/28/2023 at 11:46
== END ==
PROVIDERS: PCP Family Medicine; Referring Provider Family Medicine; Visit Provider Family Medicine
DX: R22.31 Localized swelling, mass and lump, right upper limb (principal)
CPT/HCPCS: 73110

== ENCOUNTER → 2024-06-10 08:41 | Outpatient (CLI) | payer MEDICARE, OTHER, SELFPAY | PROVIDERS: PCP Student in an Organized Health Care Education/Training Program; Visit Provider Registered Nurse | DX: R30.0 Dysuria (principal) | CPT/HCPCS: 87086 ==

== ENCOUNTER → 2024-12-18 | Outpatient (CLI) | payer MEDICARE, OTHER, SELFPAY ==
--- NOTE | 2024-12-18 17:07 | DI.MG.S_ITS ---
MM screening mammo BI: 12/18/2024. BI-RADS: 1 CLINICAL: 74-year old female for bilateral screening mammogram. Tyrer-Cuzick lifetime risk of 6.3%. No personal or first-degree family history of breast cancer. Current reported family history of breast cancer: maternal aunt. PRIOR EXAMS 03/16/2022, 04/18/2020, 03/04/2018, 02/20/2016, 02/15/2015. MAMMOGRAPHY TECHNIQUE: 2D and 3D (tomosynthesis) digital mammographic views obtained, with additional images as needed for full coverage. Current study was also evaluated with a Computer Aided Detection (CAD) system. DENSITY C. The breasts are heterogeneously dense, which may obscure small masses. MAMMOGRAPHY FINDINGS Bilateral: No suspicious mass, asymmetry, microcalcification, or other abnormality seen. No significant change from comparison. IMPRESSION: * No evidence of malignancy. RECOMMENDATIONS Bilateral * Annual screening mammography. OVERALL ASSESSMENT CATEGORY BI-RADS-1: Negative. The [employer] recommends annual screening mammography beginning at age 40 for women with average risk of breast cancer. ELECTRONICALLY SIGNED: Sandee Llanes M.D. on 12/19/2024 at 12:24:43 PM PT Interpreting Station ID: [id number]
== END ==
PROVIDERS: PCP Student in an Organized Health Care Education/Training Program; Referring Provider Student in an Organized Health Care Education/Training Program; Visit Provider Student in an Organized Health Care Education/Training Program
DX: Z12.31 Encounter for screening mammogram for malignant neoplasm of breast (principal); Z80.3 Family history of malignant neoplasm of breast; R92.333 Mammographic heterogeneous density, bilateral breasts
CPT/HCPCS: 77063; 77067

== ENCOUNTER → 2025-02-08 10:27 | Outpatient (CLI) | payer MEDICARE, OTHER, SELFPAY ==
[2025-02-08 12:03] LABS: C-Reactive Protein Quant < 0.5 mg/dL (<1.0)
== END ==
PROVIDERS: PCP Student in an Organized Health Care Education/Training Program; Referring Provider Student in an Organized Health Care Education/Training Program; Visit Provider Physician Assistant
DX: R19.7 Diarrhea, unspecified (principal)
CPT/HCPCS: 36415; 86140

== ENCOUNTER → 2025-02-16 08:27 | Outpatient (CLI) | payer MEDICARE, OTHER, SELFPAY ==
[2025-02-18 15:40] LABS: Calprotectin, Stool 48 ug/g (0-120)
== END ==
PROVIDERS: PCP Student in an Organized Health Care Education/Training Program; Referring Provider Physician Assistant; Visit Provider Physician Assistant
DX: R19.7 Diarrhea, unspecified (principal)
CPT/HCPCS: 83993

== ENCOUNTER 2025-06-15 10:26 | Day surgery (SDC) | payer MEDICARE, OTHER, SELFPAY ==
[2025-06-08 12:54] VITALS: BMI 26.1
[2025-06-15] VITALS (10 sets, daily range): BP systolic 128–152; BP diastolic 57–84; PULSE 88–127; RESP 16–29; TEMP 36.2–36.6; O2SAT 94–98; BMI 26.1
--- NOTE | 2025-06-15 07:16 | PM.PREOP ---
Pre-operative Note Interval Note History & Physical reviewed/Exam performed by Physician: Yes Changes to H&P: No ASA Class (for procedural sedation): I
[2025-06-15] MEDS: ACETAMINOPHEN 325 MG TABLET 975 MG PO (11:07)
[2025-06-15] MEDS: LACTATED RINGERS 1,000 ML 42 ML IV ×2 (11:07→13:37)
--- NOTE | 2025-06-15 11:09 | EKG_ITS ---
[address] [address] Test Date: 2025-06-15 Pat Name: Anshu Fairchild Department: Room: Gender: Female Bureau Director: Indy ALLRED : 1950 Requested By: Order Number: [id number] Reading MD: Andi Avalos MD Measurements Intervals Aldie Rate: 104 P: 73 MD: 150 QRS: -33 QRSD: 150 T: 97 QT: 418 QTc: 549 Interpretive Statements Sinus tachycardia Left axis deviation Left bundle branch block NO PRIOR TRACING Electronically Signed On 06-18-2025 7:45:10 PDT by Andi Avalos MD
--- NOTE | 2025-06-15 12:49 | SUR.OPER ---
Supine on pink-padded OR bed, head on pillow, arms purple-padded and tucked at sides, legs uncrossed, safety belt at thigh, tape over blanket over lower legs .
--- NOTE | 2025-06-15 13:44 | PM.OP.1 ---
Operative Date/Time/Diagnoses Date of procedure: 06/15/25 Time of procedure: 13:44 Pre-op diagnosis: RIH Post-op diagnosis: same Procedure & Clinicians Procedure: Laparoscopic right inguinal hernia repair with mesh TEP Same procedure(s) as scheduled: Yes Indications: 75yo F, symptomatic RIH. Surgeon: Anibal Donaldson Click Yes if Unassisted: Yes Anesthesia Type: General Operative Notes Findings: Indirect RIH Closure Type: primary Specimen(s): none sent Applied: none Estimated Blood Loss (mL): 10 Procedure in detail: After informed consent and satisfactory general endotracheal anesthesia, the abdomen was prepped and draped in the usual sterile manner. Surgical time-out was performed with all team members in agreement. The patient received appropriate preoperative antibiotics and DVT prophylaxis. The preperitoneal space was entered via an infraumbilical incision. The anterior rectus sheath was incised and an 0 Vicryl [id number]-rx-nwjsh suture was placed. The rectus muscle was bluntly divided and a dissecting 10 mm blunt instrument was placed into the preperitoneal space for the initial dissection. The 12 mm trocar was inserted in the preperitoneal space was insufflated to a pressure of 12 mmHg with carbon dioxide gas. This allowed tube suprapubic 5 mm trocars inserted under direct vision. We then used blunt graspers to dissect out the right preperitoneal space. We took care to keep the inferior epigastric vessels anteriorly. We dissected out laterally and were able to perform an ilioinguinal nerve block under direct vision 2 fingerbreadths medial to the anterior superior iliac spine. We completely dissected out the mild pectineal orifice such that the pubic bone, the Chris's ligament, the direct area, the femoral area, the indirect area laterally were all exposed. The patient was noted to have an indirect inguinal hernia and this was dissected off of the round ligament to accommodate the mesh. I selected a Bard 3D large mesh patch and secured this into the preperitoneal space and unrolled it such that it covered all potential hernia defects widely and the mesh was noted to lay in a flat position without kinking. Hemostasis was excellent throughout. I held the inferior margin of the mesh as we let these carbon dioxide gas out and the peritoneal cavity relaxed against the mesh nicely holding it in perfect position. At this point the 0 Vicryl puhrlg-[id number]-[id number] suture was tied there were no palpable fascial defects. All of the trocars were removed. There was no bleeding noted at the trocar sites. The skin incisions were closed using 4-0 Monocryl in a subcuticular manner. Dermabond glue was applied as a final dressing. The estimated blood loss was minimal. The instrument sponge and needle counts were all correct x2. The patient tolerated the procedure well and was extubated in the operating room and transported to the recovery area in stable condition. Complications: none Post-operative Condition: stable Disposition: PACU Plan for aftercare: PACU then home
[2025-06-15] MEDS: BENZOCAINE/MENTHOL 1 LOZ PKT 1 EACH PO (13:46)
== END 2025-06-15 14:20 | disposition home or self-care (01) ==
PROVIDERS: PCP Student in an Organized Health Care Education/Training Program; Referring Provider Surgery; Visit Provider Surgery
PROC: 0YQ54ZZ Repair Right Inguinal Region, Percutaneous Endoscopic Approach (ICD-10-PCS; CPT 49650; principal; 2025-06-15 12:30)
DX: K40.90 Unilateral inguinal hernia, without obstruction or gangrene, not specified as recurrent (principal)
CPT/HCPCS: 49650; 93005; C1781; J0690; J1100; J1885; J2405; J2704; J3010

== ENCOUNTER → 2025-07-13 12:29 | Outpatient (CLI) | payer MEDICARE, OTHER, SELFPAY ==
--- NOTE | 2025-07-13 12:30 | DI.ECHO.S_ITS ---
[facility] : : [address] : : [place] : : [id number] : : Phone: [phone] Echocardiogram Report + + :Name: CODY HARRIS Study Date: 07/13/2025 Height: 65 in : :[facility] ReadingLocation: Weight: 155 lb : : Gender: Female BSA: 1.8 m2 : :: 1950 Age: 75 yrs BP: 133/74 mmHg: :Reason For Study: Abnormal EKG : :Ordering Physician: VANI, : :DIAZ Performed By: Joce Lucas : :Referring: DIAZ LUDWIG : + + Interpretation Summary The ejection fraction is estimated to be 30-35%. Contractility is preserved in the basal to mid anterior, basal to mid anterolateral, entire inferolateral rudd. All other segments appear hypokinetic however this is in the setting of significant dyssynchronous contraction due to interventricular conduction delay. Diastolic function was not assessed. The right ventricle is normal in size and function. No significant valvular abnormalities. Pulmonary artery pressures cannot be estimated because of the lack of a measurable TR jet velocity but the IVC suggests a CVP of around 3 mmHg. The patient has been referred to cardiology. Procedure: A two-dimensional transthoracic echocardiogram with color flow and Doppler was performed. The study quality was technically adequate. There is no prior echocardiogram noted for this patient. The heart rate ranged between 85-90 bpm during the study. Left Ventricle: The left ventricle is normal in size and wall thickness. A false chord is noted (normal variant). Left ventricular systolic function is moderately reduced. The ejection fraction is estimated to be 30-35%. There is a severe dyssynchronous contraction pattern, consistent with a conduction abnormality. Contractility is preserved in the basal to mid anterior, basal to mid anterolateral, entire inferolateral rudd. All other segments appear hypokinetic however this is in the setting of significant dyssynchronous contraction due to interventricular conduction delay. Diastolic function was not assessed. Right Ventricle: The right ventricle is normal in size and function. Atria: The left atrial size is normal. Right atrial size is normal. There is no Doppler evidence for an interatrial shunt. Mitral Valve: The mitral valve leaflets appear to open well. There is no mitral valve stenosis. There is trace mitral regurgitation. Aortic Valve: The aortic valve is trileaflet. There is no aortic valve stenosis. There is trace aortic regurgitation. Tricuspid Valve: The tricuspid valve leaflets are thin and pliable. There is trace tricuspid regurgitation. Pulmonary artery pressures cannot be estimated because of the lack of a measurable TR jet velocity but the IVC suggests a CVP of around 3 mmHg. Pulmonic Valve: The pulmonic valve is not well seen, but is grossly normal. There is trace pulmonic regurgitation. Great Vessels: The aortic root is normal size. The ascending aorta is normal in size. The aortic arch is normal in size. The IVC is of normal diameter and collapses greater than 50% with a sniff. This suggests a low right atrial pressure of 3 mm Hg. Pericardium/ Pleura There is no pericardial effusion. MMode/2D Measurements & Calculations LVIDd: 5.4 cm LVOT diam: 2.0 cm LVIDs: 4.3 cm Ao root diam: 3.0 cm FS: 19.4 % asc Aorta Diam: 2.7 cm EPSS: 1.2 cm Ao Arch Diam (Prox Trans): 2.3 cm IVSd: 0.91 cm LVPWd: 0.94 cm LV valdes. diameter/BSA (cm/m^2): 3.0 LV sys. diameter/BSA (cm/m^2): 2.4 LA A2 area: 17.5 cm2 IVC diam: 1.4 cm LA A4 area: 16.6 cm2 LA length (vol): 5.0 cm LA vol: 49.5 ml LA vol index: 27.9 ml/m2 RVD1 (basal): 2.8 cm RVD2 (mid): 2.0 cm TAPSE: 2.3 cm Doppler Measurements & Calculations Ao V2 max: 132.0 cm/sec LVOT Max Pedro: 93.3 cm/sec Ao V2 mean: 95.2 cm/sec LV V1 max P.5 mmHg Ao max P.0 mmHg LV V1 VTI: 15.5 cm Ao mean P.0 mmHg ABEL(I,D): 1.9 cm2 Ao V2 VTI: 24.7 cm ABEL(V,D): 2.1 cm2 sev ratio: 0.63 ABEL indexed to BSA (cm^2/m^2): 1.1 AI P1/2t: 633.6 msec AI dec slope: 171.7 cm/sec2 MV E max pedro: 135.4 cm/sec PA V2 max: 111.7 cm/sec MV A max pedro: 41.6 cm/sec PA V2 mean: 78.0 cm/sec MV E/A: 3.3 PA mean P.8 mmHg MV dec time: 0.13 sec PA pr(Accel): 52.0 mmHg SV(LVOT): 47.0 ml Reading Physician:01:40 PM
== END ==
LOC: ECHO 12:30
PROVIDERS: PCP Student in an Organized Health Care Education/Training Program; Referring Provider Student in an Organized Health Care Education/Training Program; Visit Provider Student in an Organized Health Care Education/Training Program
DX: R94.31 Abnormal electrocardiogram [ECG] [EKG] (principal)
CPT/HCPCS: 93306

== ENCOUNTER → 2025-07-16 10:56 | Outpatient (CLI) | payer MEDICARE, OTHER, SELFPAY | LOC: CAR 10:57 | PROVIDERS: PCP Student in an Organized Health Care Education/Training Program; Referring Provider Student in an Organized Health Care Education/Training Program; Visit Provider Student in an Organized Health Care Education/Training Program | DX: R94.31 Abnormal electrocardiogram [ECG] [EKG] (principal) | CPT/HCPCS: 93246 ==

== ENCOUNTER → 2025-08-17 10:47 | Outpatient (CLI) | payer MEDICARE, OTHER, SELFPAY | PROVIDERS: PCP Student in an Organized Health Care Education/Training Program; Visit Provider Nurse Practitioner Family | DX: R30.0 Dysuria (principal) | CPT/HCPCS: 87086; 87210 ==